=== PATIENT | female | born 1965 | race Caucasian/White ===

== ENCOUNTER 2017-10-17 10:12 | Emergency (ER) | payer BC, SELFPAY ==
[2017-10-17 11:13] VITALS: BP 143/78; PULSE 79; RESP 20; TEMP 37.3; O2SAT 96; BMI 28.1
[2017-10-17 11:30] LABS: UTC Influenza A Antigen Negative (Negative); UTC Influenza B Antigen Negative (Negative)
--- NOTE | 2017-10-17 11:33 | HMH.EDUTC ---
[facility] [place] Dis[place] Clinical Impression: Viral upper respiratory illness Disposition: Home, Self-Care Condition on Discharge: Good Instructions: DI for Viral Upper Respiratory Infection -- Adult Additional Instructions: Drink plenty of fluids FOllow up with family doctor if symptoms worsen Return if needed Over the counter Motrin or TYlenol as needed for fever or pain Prescriptions: Brompheniramine/Pseudoephed/Dm [Bromfed DM Cough Syrup 5mL] 10 ml PO Q4H PRN #200 syrup PRN Reason: Cough Fluticasone Propionate [Flonase 50mcg nasal spray 16gm] 2 spr NS DAILY #1 bottle Referrals: Marvin Obregon MD [Primary Care Provider] - Time of Disposition: 11:43 Medical Decision Making Vital Signs: 10/17/17 11:13 Temperature 99.1 F Temperature Source Skin Pulse Rate [Right] 79 Respiratory Rate 20 Blood Pressure [Right Arm] 143/78 Blood Pressure Mean [Right Arm] 99 Blood Pressure Source [Right Arm] Automatic Cuff Blood Pressure Position [Right Arm] Sitting 02 Sat by Pulse Oximetry 96 Oxygen Delivery Method Room Air - Lab Data Lab Results 10/17/17 11:28: Influenza Type A Ag Negative, Influenza Type B Ag Negative 10/17/17 11:28: Strep Scn Rapid [facility] Orders (Tests/Meds): ORDERS Category Date Time Status Strep Screen Confirmation Stat Micro 10/17/17 11:28 Received - Ugo Inquiry Pt receiving controlled substance: No Ugo was queried for this patient: No [facility] [place] HPI - General Stated complaint: POSS FLU,SORE THROAT Mode of Arrival: Ambulatory Source of Information: Patient Limitations: No Limitations Description of Symptoms (Recalled from Triage Doc. by RN): COUGH, CONGESTION, SORE THROAT HEENT Symptoms (Recalled from RN notes): Yes Resp Symptoms (Recalled from RN notes): No Skin Symptoms (Recalled from RN notes): No MS Symptoms (Recalled from RN notes): No Functional Status (Recalled from RN notes): NO - History of Present Illness Provider Complaint: State that her son was diagnosed on Sunday with the flu and now today she is running a fever and having flu like symptoms Onset (ago): day(s) (1) Radiation: non-radiation Severity: mild Severity scale (1-10): 1 Relieving factors: none Exacerbating factors: none Treatments prior to arrival: none - Related Data Previous Rx's Medication Instructions Recorded Brompheniramine/Pseudoephed/Dm 10 ml PO Q4H PRN #200 syrup 10/17/17 [Bromfed DM Cough Syrup 5mL] Fluticasone Propionate [Flonase 2 spr NS DAILY #1 bottle 10/17/17 50mcg nasal spray 16gm] Allergies Allergy/AdvReac Type Severity Reaction Status Date / Time No Known Allergies Allergy Unverified 10/02/17 14:31 - Worker's Comp Is this a Worker's Comp case?: No [facility] History - *Social History Alcohol Intake: never - Psychiatric History Expresses thoughts of harming self/others: None Suicide Plan Description: No Plan - Constitutional Reports chills, Reports fever(s) - ENT Reports nasal congestion - Respiratory Reports cough Physical Exam - General General appearance: alert, in no apparent distress - ENT ENT exam: Present: normal exam, normal oropharynx, mucous membranes moist, TM's normal bilaterally, normal external ear exam - Chest Chest inspection: Present: normal inspection, symmetric chest wall rise. Absent: tenderness - Respiratory Respiratory exam: Present: normal lung sounds bilaterally. Absent: respiratory distress - Cardiovascular Cardiovascular exam: Present: regular rate, normal rhythm. Absent: JVD - Abdominal Exam Abdominal exam: Present: soft, normal bowel sounds. Absent: distention, tenderness, guarding - Neurological Exam Neurological exam: Present: alert, oriented X3
--- NOTE | 2017-10-17 11:38 | ED_ITS ---
[facility] [place] Clinical Impression: Viral upper respiratory illness Disposition: Home, Self-Care Condition on Discharge: Good Instructions: DI for Viral Upper Respiratory Infection -- Adult Additional Instructions: Drink plenty of fluids FOllow up with family doctor if symptoms worsen Return if needed Over the counter Motrin or TYlenol as needed for fever or pain Prescriptions: Brompheniramine/Pseudoephed/Dm [Bromfed DM Cough Syrup 5mL] 10 ml PO Q4H PRN # 200 syrup PRN Reason: Cough Fluticasone Propionate [Flonase 50mcg nasal spray 16gm] 2 spr NS DAILY #1 bottle Referrals: Marvin Obregon MD [Primary Care Provider] - Time of Disposition: 11:43 Medical Decision Making Vital Signs: 10/17/17 11:13 Temperature 99.1 F Temperature Source Skin Pulse Rate [Right] 79 Respiratory Rate 20 Blood Pressure [Right Arm] 143/78 Blood Pressure Mean [Right Arm] 99 Blood Pressure Source [Right Arm] Automatic Cuff Blood Pressure Position [Right Arm] Sitting 02 Sat by Pulse Oximetry 96 Oxygen Delivery Method Room Air - Lab Data Lab Results 10/17/17 11:28: Influenza Type A Ag Negative, Influenza Type B Ag Negative 10/17/17 11:28: Strep Scn Rapid [facility] Orders (Tests/Meds): ORDERS Category Date Time Status Strep Screen Confirmation Stat Micro 10/17/17 11:28 Received - Ugo Inquiry Pt receiving controlled substance: No Ugo was queried for this patient: No [facility] [place] - General Stated complaint: POSS FLU,SORE THROAT Mode of Arrival: Ambulatory Source of Information: Patient Limitations: No Limitations Description of Symptoms (Recalled from Triage Doc. by RN): COUGH, CONGESTION, SORE THROAT HEENT Symptoms (Recalled from RN notes): Yes Resp Symptoms (Recalled from RN notes): No Skin Symptoms (Recalled from RN notes): No MS Symptoms (Recalled from RN notes): No Functional Status (Recalled from RN notes): NO - History of Present Illness Provider Complaint: State that her son was diagnosed on Sunday with the flu and now today she is running a fever and having flu like symptoms Onset (ago): day(s) (1) Radiation: non-radiation Severity: mild Severity scale (1-10): 1 Relieving factors: none Exacerbating factors: none Treatments prior to arrival: none - Related Data Previous Rx's Medication Instructions Recorded Brompheniramine/Pseudoephed/Dm 10 ml PO Q4H PRN #200 syrup 10/17/17 [Bromfed DM Cough Syrup 5mL] Fluticasone Propionate [Flonase 2 spr NS DAILY #1 bottle 10/17/17 50mcg nasal spray 16gm] Allergies Allergy/AdvReac Type Severity Reaction Status Date / Time No Known Allergies Allergy Unverified 10/02/17 14:31 - Worker's Comp Is this a Worker's Comp case?: No [facility] History - *Social History Alcohol Intake: never - Psychiatric History Expresses thoughts of harming self/others: None Suicide Plan Description: No Plan - Constitutional Reports chills, Reports fever(s) - ENT Reports nasal congestion - Respiratory Reports cough Physical Exam - General General appearance: alert, in no apparent distress - ENT ENT exam: Present: normal exam, normal oropharynx, mucous membranes moist, TM's normal bilaterally, normal external ear exam
== END 2017-10-17 11:45 | disposition home or self-care (01) ==
PROVIDERS: Emergency Provider Nurse Practitioner; Family Provider Family Medicine; PCP Family Medicine
DX: J06.9 Acute upper respiratory infection, unspecified (principal)
CPT/HCPCS: 87276; 87430; 87804; 87880; 99202

== ENCOUNTER → 2018-07-30 08:27 | Outpatient (CLI) | payer BC, SELFPAY ==
[2018-07-30 09:47] LABS: Blood Urea Nitrogen 15 mg/dL (7-18); Calcium 9.3 mg/dL (8.5-10.1); Carbon Dioxide 30 mmol/L (21.0-32.0); Chloride 105 mmol/L (98-107); Cholesterol 147 mg/dL (140-200); Creatinine,Serum 0.82 mg/dL (0.55-1.02); Estimated Glomerular Filt Rate 73 ml/min (>60); Free T4 (Free Thyroxine) 0.82 ng/dl (0.76-1.46); GFR (African American) 88 ML/MIN (>60); Glucose 106 mg/dL (74-106); HDL Cholesterol 49 mg/dL (29-89); LDL Cholesterol 76 mg/dL (0-130); Sodium 141 mmol/L (136-145); Triglycerides 108 mg/dL (30-200); VLDL Cholesterol 22 mg/dL (0-40)
== END ==
PROVIDERS: PCP Family Medicine; Visit Provider Family Medicine
DX: E03.9 Hypothyroidism, unspecified (principal)
CPT/HCPCS: 36415; 80048; 80061; 84439; 84443

== ENCOUNTER → 2019-09-01 15:05 | Outpatient (CLI) | payer BC, SELFPAY ==
--- NOTE | 2019-09-01 15:19 | MM_ITS ---
PROCEDURE: MM DIG SCREENING MAMM BI W/CAD CLINICAL INDICATION: SCREENING There is a history of breast cancer in patient's mother diagnosed after menopause. COMPARISON: SANJEEV SCRN MAMMO W/CAD BILAT from 08/15/2017 SANJEEV SCRN MAMMO W/CAD BILAT from 08/19/2018 SANJEEV SCRN MAMMO W/CAD BILAT from 08/19/2018 SANJEEV SCRN MAMMO W/CAD BILAT from 08/19/2018 SANJEEV SCRN MAMMO W/CAD BILAT from 08/19/2018 TECHNIQUE: Standard CC and MLO images were obtained. R2 CAD reviewed. FINDINGS: Scattered fibroglandular densities are seen in both breast and the findings of bilateral and symmetrical. There is no suspicious lesion and no suspicious microcalcifications. IMPRESSION: Fibrofatty parenchyma with no suspicious lesions seen BI-RAD Category: 1 Negative FOLLOW-UP: 1YR 1 Year Follow-up (A letter has been sent to the patient regarding results of the study.) Dictated by: Dr. Paras Nunez MD 09/04/2019 12:[address] Paras Nunez MD in [place] 09/04/2019 12:09
== END ==
PROVIDERS: PCP Family Medicine; Visit Provider Obstetrics & Gynecology Gynecology
DX: Z12.31 Encounter for screening mammogram for malignant neoplasm of breast (principal)
CPT/HCPCS: 77067

== ENCOUNTER → 2019-09-08 10:08 | Outpatient (CLI) | payer BC, SELFPAY ==
--- NOTE | 2019-09-08 10:12 | XR_ITS ---
PROCEDURE: XR KNEE LT 3V CLINICAL INDICATION: LT KNEE PAIN COMPARISON: No exams were available for comparison FINDINGS: No fracture or dislocation. No lytic or blastic change. There is normal mineralization. The joint spaces are well-preserved. No significant degenerative/arthritic changes. No erosive changes evident. Other findings:None. IMPRESSION: No acute findings. Dictated by: Meliton Dee MD 09/08/2019 13:22 Electronically signed by Meliton Dee MD in [place] 09/08/2019 13:22
== END ==
PROVIDERS: PCP Family Medicine; Visit Provider Family Medicine
DX: M25.562 Pain in left knee (principal)
CPT/HCPCS: 73562

== ENCOUNTER → 2019-10-06 11:16 | Outpatient (CLI) | payer BC, SELFPAY ==
--- NOTE | 2019-10-06 11:23 | MR_ITS ---
PROCEDURE: MR KNEE LT WO CON CLINICAL INDICATION: ACUTE PAIN OF LEFT KNEE COMPARISON: No exams were available for comparison TECHNIQUE: Routine multi-echo and multiplanar images. FINDINGS: Signal from the osseous marrow elements appear normal except for small subchondral rounded foci of increased T2 signal involving the posterior midline of the patella and the medial femoral condyle. There is loss of the articular cartilage at the posterior midline of the patella and involving the entire articular cortex at the medial femoral condyle with some associated cortical irregularity. There is a small joint effusion. Quadriceps and patellar tendons are intact. Patellar retinacular areas are normal. ACL and PCL are intact. MCL and the lateral capsular complex appear to be intact. The medial and lateral meniscal areas show some linear intrameniscal signal involving the entire medial meniscus without involvement of the articular surfaces. There is perhaps mild narrowing of the medial joint compartment. There is a small fluid collection between the gastrocnemius and semimembranosus tendons. This is approximately 1.8 centimeters in length. 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 Linear degenerative meniscal signal change involving the medial meniscus. No definite medial or lateral meniscal tear. Small reactive joint effusion and small popliteal cyst. Dictated by: Chiki Forte 10/06/2019 13:30 Electronically signed by Chiki Forte in [place] 10/06/2019 13:30
== END ==
PROVIDERS: PCP Family Medicine; Visit Provider Family Medicine
DX: M25.562 Pain in left knee (principal)
CPT/HCPCS: 73721

== ENCOUNTER → 2019-11-10 15:55 | Outpatient (CLI) | payer BC, SELFPAY ==
--- NOTE | 2019-11-10 16:04 | XR_ITS ---
PROCEDURE: XR CHEST 2V CLINICAL HISTORY: PRIOR SMOKER History of pneumonia COMPARISON: No exams were available for comparison FINDINGS: The cardiomediastinal silhouette and pulmonary vascularity are within normal limits. There is some patchy density in the left lung base the. Atelectasis/infiltrate or an area of fibrosis is a consideration. There is minimal blunting of the right CP angle. Mild hyperinflation consistent with COPD Mild wedging involves T8 age indeterminate. IMPRESSION: COPD with mild left basilar atelectasis infiltrate or fibrosis and minimal blunting of the right CP angle Age indeterminate mild wedging of T8 Dictated by: Meliton Dee MD 11/10/2019 17:23 Electronically signed by Meliton Dee MD in [place] 11/10/2019 17:23
--- NOTE | 2019-11-10 16:30 | ECG_ITS ---
APPROVED REPORT Exam: Resting ECG HR:66 bpm ECG Measurements Heart Rate 66 AXES CA 142 P 58 QRSd 90 QRS 64 QT 378 T 70 QTc 396 <Conclusion> Normal sinus rhythm Low voltage QRS Incomplete RBBB Abnormal ECG Electronically signed by : Delroy Ireland, 11/10/2019 19:15:43
[2019-11-10 16:36] LABS: Microscopic, Urine URINE MICROSCOPIC (MICROSCOPIC)
[2019-11-10 16:50] LABS: Appearance,Urine CLEAR (Clear); Bilirubin,Urine Negative (Negative); Blood, Urine Negative (Negative); Color,Urine YELLOW (Yellow); Glucose,Urine (UA) Negative (Negative); Ketones,Urine Negative (Negative); Leukocyte Esterase,Urine Negative (Negative); Nitrate,Urine Negative (Negative); Protein,Urine Negative (Negative); Urobilinogen,Urine 0.2 EU/dl (0.2)
[2019-11-10 16:53] LABS: Basophils # 0.1 K/mm3 (0-0.2); Basophils % 0.7 % (0.1-2.0); Eosinophils # 0.2 K/mm3 (0.0-0.4); Hematocrit 44.8 % (37.0-47.0); Hemoglobin 14.9 g/dL (12.2-16.2); Lymphocytes # 2.1 K/mm3 (0.7-4.5); Lymphocytes % 28.1 % (10-50); Mean Corpuscular HGB Conc 33.2 g/dL (31.8-35.4); Mean Corpuscular Hemoglobin 29.8 pg (27.0-31.2); Mean Corpuscular Volume 89.8 fl (81-99); Mean Platelet Volume 8.1 fl (7.4-10.4); Monocytes # 0.4 K/mm3 (0.1-1.0); Monocytes % 5.7 % (1.7-9.3); Neutrophils # 4.8 K/mm3 (1.8-7.8); Neutrophils % 62.5 % (37.0-80.0); Platelet Count 304 K/mm3 (142-424); Red Blood Count 4.99 M/mm3 (4.20-5.40); Red Cell Distribution Width 12.5 % (11.5-17.5); White Blood Count 7.6 K/mm3 (4.8-10.8)
[2019-11-10 17:19] LABS: Bacteria,Urine Trace /lpf; Squamous Epithelial Cell,Urine Occasional #/hpf (0-5); WBC,Urine Occasional #/hpf (0-3)
[2019-11-10 17:21] LABS: Alanine Aminotransferase 24 U/L (12-78); Albumin Level 4.1 gm/dL (3.4-5.0); Albumin/Globulin Ratio 1.4 (1.1-1.8); Alkaline Phosphatase 80 U/L (46-116); Aspartate Amino Transferase 16 U/L (15-37); Bilirubin,Total 0.4 mg/dL (0.2-1.0); Blood Urea Nitrogen 17 mg/dL (7-18); Calcium 9.2 mg/dL (8.5-10.1); Carbon Dioxide 29 mmol/L (21.0-32.0); Chloride 104 mmol/L (98-107); Creatinine,Serum 0.78 mg/dL (0.55-1.02); Estimated Glomerular Filt Rate 76 ml/min (>60); GFR (African American) 92 ML/MIN (>60); Glucose 90 mg/dL (74-106); Sodium 144 mmol/L (136-145); Total Protein,Serum 7.1 gm/dL (6.4-8.2)
[2019-11-10 18:25] LABS: Hemoglobin A1C 5.5 % (0.0-7.0)
== END ==
PROVIDERS: PCP Family Medicine; Visit Provider Family Medicine
DX: Z01.818 Encounter for other preprocedural examination (principal)
CPT/HCPCS: 36415; 71046; 80053; 81001; 83036; 85025; 93005

== ENCOUNTER → 2020-09-08 10:54 | Outpatient (CLI) | payer BC, SELFPAY ==
--- NOTE | 2020-09-08 10:56 | MM_ITS ---
PROCEDURE: MM DIG SCREENING MAMM BI W/CAD Referring Doctor: Balaji Mccarthy Patient Age:55Y CLINICAL INDICATION: SCREENING 55-year-old but no hormones but no new complaints but Mother with breast cancer age 51. COMPARISON: MG MM DIG SCREENING MAMM BI W/CAD from 09/01/2019 Other outside studies from 2018 and 2017 did not fully load appropriately into the PACS system due dysfunction with the [employer] PACS PACS image import interface. Only the CC view right breast from 2018; and MLO view from 2017 otherwise available TECHNIQUE: Standard CC and MLO images were obtained. R2 CAD reviewed. Bilateral digital breast tomosynthesis included. Additional left breast axillary CC and left MLO view performed CAD highlights no areas of concern. FINDINGS: Mild/ Moderate residual fibroglandular elements. Stable mild asymmetry. No new dominant or suspicious mass . No suspicious calcifications;. CAD computer review highlights no areas of concern either Left breast: Stable appearance with no new areas of concern Right breast: No new areas of significant concern. Small area superior right breast on MLO view appears to dissipate on the tomosynthesis view; and I believe corresponds with a stable area of density on CC view from IMPRESSION: No new areas of significant concern. Bilateral follow-up 1 year recommended and should be emphasized/encouraged Right breast-no significant new features; follow-up 1 year Small asymmetric area superior right breast dissipates on MLO tomosynthesis and appears stable on CC images.. Would recommend and encourage follow-up 1 year to further assure stability Left breast-stable follow-up 1 year BI-RAD Category: 2 Benign Finding(s) FOLLOW-UP: 1YR 1 Year Follow-up (A letter has been sent to the patient regarding results of the study.) Dictated by: Ross Cloud MD 09/16/2020 17:59 Ross Cloud MD in [place] 09/16/2020 17:59
== END ==
PROVIDERS: PCP Family Medicine; Visit Provider Obstetrics & Gynecology Gynecology
DX: Z12.31 Encounter for screening mammogram for malignant neoplasm of breast (principal)
CPT/HCPCS: 77063; 77067

== ENCOUNTER → 2021-02-01 16:24 | Outpatient (CLI) | payer BC, SELFPAY ==
--- NOTE | 2021-02-01 16:29 | XR_ITS ---
PROCEDURE: XR HIP RT 2-3V W/PELVIS CLINICAL INDICATION: HIP PAIN RT COMPARISON: No exams were available for comparison FINDINGS: There are mild osteoarthritic changes of the right hip. No acute fracture or dislocation. No lytic or blastic change. IMPRESSION: Mild osteoarthritis Dictated by: Meliton Dee MD 02/01/2021 17:12 Meliton Dee MD in [place] 02/01/2021 17:12
== END ==
PROVIDERS: PCP Family Medicine; Visit Provider Nurse Practitioner Family
DX: M25.551 Pain in right hip (principal)
CPT/HCPCS: 73502

== ENCOUNTER → 2021-08-27 09:59 | Outpatient (CLI) | payer BC, SELFPAY | PROVIDERS: PCP Family Medicine; Visit Provider Family Medicine | DX: U07.1 COVID-19 (principal); Z23 Encounter for immunization | CPT/HCPCS: 96365 ==

== ENCOUNTER → 2021-09-13 08:18 | Outpatient (CLI) | payer BC, SELFPAY ==
--- NOTE | 2021-09-13 08:20 | MM_ITS ---
PROCEDURE INFORMATION: Exam: MG Bilateral Screening 3D Mammography Exam date and time: 09/13/2021 8:20 AM Age: 56 years old Clinical indication: Encounter for screening mammogram for malignant neoplasm of breast TECHNIQUE: Imaging protocol: Bilateral screening tomosynthesis and 2D mammography including computer-aided detection (CAD) when performed. COMPARISON: 1. MG MM DIG SCREENING MAMM BI W/CAD 09/08/2020 10:58 AM 2. MG MM DIG SCREENING MAMM BI W/CAD 09/01/2019 3:22 PM FINDINGS: MAMMOGRAPHY: Breast composition: The breast tissue is composed of scattered areas of fibroglandular density. Mass: None. Architectural distortion: None. Calcifications: No suspicious calcifications. Asymmetric density: None. Skin thickening: None. Axillary adenopathy: None. IMPRESSION: No mammographic evidence of malignancy. Annual screening is recommended unless otherwise clinically indicated. ASSESSMENT: BI-RADS Category 1: Negative
--- NOTE | 2021-09-13 08:20 | XR_ITS ---
PROCEDURE: XR DEXA AXIAL SKELETON CLINICAL HISTORY: SCREENING FOR OSTEOPOROSIS COMPARISON: No exams were available for comparison FINDINGS: The right hip BMD is 0.671 with a T-score of -1.6. The left hip BMD is 0.744 with a T-score of -1.6. The lumbar spine BMD is 0.950 with a T-score of -0.9. IMPRESSION: This patient is considered osteopenic according to the World Health Organization criteria. Bone density is between 10 and 25 percent below young normal. Fracture risk is moderate. Treatment is advised. Based on these results a follow-up exam is recommended in 2 year. Dictated by: Meliton Dee MD 09/13/2021 11:03 Meltion Dee MD in [place] 09/13/2021 11:03
== END ==
PROVIDERS: PCP Family Medicine; Visit Provider Obstetrics & Gynecology Gynecology
DX: Z12.31 Encounter for screening mammogram for malignant neoplasm of breast (principal); Z13.820 Encounter for screening for osteoporosis; M85.89 Other specified disorders of bone density and structure, multiple sites
CPT/HCPCS: 77063; 77067; 77080

== ENCOUNTER 2021-12-18 09:19 | Emergency (ER) | payer BC, SELFPAY ==
[2021-12-18 09:20] VITALS: BP 141/89; PULSE 82; RESP 17; TEMP 37.2; O2SAT 97; BMI 26.9
--- NOTE | 2021-12-18 09:41 | HMH.EDUTC ---
[facility] [place]ression: Maxillary sinusitis, acute Qualifiers: Recurrence: non-recurrent Qualified Code(s): J01.00 - Acute maxillary sinusitis, unspecified Disposition: Home, Self-Care Condition on Discharge: Good Instructions: DI for Sinusitis Additional Instructions: Start antibiotic patient to take as ordered for a full length of time even if you feel better. Sinus infections do not get better overnight. It may take 2-3 days to notice much improvement so be sure to use conservative measures as discussed for symptoms. Flonase 1 spray each nostril daily to help with nasal congestion, sinus and ear pressure/information Increase fluids Humidifier/vaporizer as needed Tylenol and ibuprofen as needed for fever or pain. If symptoms do not improve or get worse return or be seen in the ER Follow-up with primary care this week Prescriptions: Fluticasone Propionate [Flonase 50mcg nasal spray 16gm] 1 spr NS DAILY 14 Days #9.9 ml Transmission Status: Pending to [id number] Azithromycin [Zithromax 250mg tab] 250 mg PO DIRECTED #6 tab [id number] Referrals: Marvin Obregon MD [Primary Care Provider] - Time of Disposition: 09:49 Medical Decision Making - Ugo Inquiry Pt receiving controlled substance: No [facility] [place] - General Chief complaint: Ur[facility] Stated complaint: cough Time Seen by Provider: 12/18/21 09:41 Mode of Arrival: Ambulatory Source of Information: Patient Limitations: No Limitations - History of Present Illness Provider Complaint: 56 yr old female presents for cough, dark brown nasal drainage, sinus pressure and headache - Related Data Home Medications Medication Instructions Recorded Confirmed Levothyroxine Sodium [Synthroid 75 mcg PO DAILY 12/18/21 12/18/21 75mcg (0.075mg) tablet] Previous Rx's Medication Instructions Recorded Azithromycin [Zithromax 250mg 250 mg PO DIRECTED #6 tab 12/18/21 tab] Fluticasone Propionate [Flonase 1 spr NS DAILY 14 Days #9.9 ml 12/18/21 50mcg nasal spray 16gm] Allergies Allergy/AdvReac Type Severity Reaction Status Date / Time No Known Allergies Allergy Unverified 10/02/17 14:31 [facility] History - Hepatitis A Screen Attestation statement:: This patient has been screened for Hepatitis A risk factors. I have reviewed the patient's past medical history: Yes Laterality Cases: Bilateral: Arthroscopy Shoulder - Social History Smoking Status: Never smoker Alcohol Intake: never Occupational Status: employed Household Members: spouse ROS Obtained: Yes Systems reviewed as appropriate & no additional complaints - Constitutional Constitutional: Reports system reviewed and no additional complaints, except as docu, Denies body ache, Denies fatigue - Eyes Eyes: Reports system reviewed and no additional complaints, except as docu, Denies blurry vision - ENT Ears, Nose, Mouth, and Throat: Reports system reviewed and no additional complaints, except as docu, Denies dizziness, Reports headache(s), Reports nasal congestion, Reports nasal discharge, Reports post nasal drip, Reports sinus pain, Reports sinus pressure - Cardiovascular Cardiovascular: Reports system reviewed and no additional complaints, except as docu, Denies chest pain - Respiratory Respiratory: Reports system reviewed and no additional complaints, except as docu, Reports cough - Gastrointestinal Gastrointestingal: Reports: system reviewed and no additional complaints, except as docu. Denies: abdominal pain - Musculoskeletal Musculoskeletal: Reports system reviewed and no additional complaints, except as docu, Denies joint pain - Integumentary/Breasts Skin/Breast: Reports system reviewed and no additional complaints, except as docu, Denies rash - Neurologic Neurologic: Reports system reviewed and no additional complaints, except as docu, Denies dizziness - Endocrine Endocrin
[2021-12-18 09:51] VITALS: BP 141/89; PULSE 82; RESP 17; TEMP 37.2; O2SAT 97
== END 2021-12-18 09:55 | disposition home or self-care (01) ==
PROVIDERS: Emergency Provider Nurse Practitioner Family; PCP Family Medicine
DX: J01.00 Acute maxillary sinusitis, unspecified (principal); R50.9 Fever, unspecified; R51.9 Headache, unspecified; Z79.51 Long term (current) use of inhaled steroids; Z79.899 Other long term (current) drug therapy
CPT/HCPCS: 99213; G0463

== ENCOUNTER → 2022-04-28 09:32 | Outpatient (CLI) | payer BC, SELFPAY ==
--- NOTE | 2022-04-28 09:39 | XR_ITS ---
FINAL REPORT CLINICAL HISTORY: RT HIP PAIN COMPARISON: February 01, 2021 FINDINGS: 2 views of the right hip and an AP pelvis were obtained. There is no acute fracture or dislocation. There is mild sclerosis of the right SI joint. The joint spaces are intact. There are no soft tissue abnormalities. IMPRESSION: Mild sclerosis of the right SI joint. Reviewed, Interpreted and Dictated by Royer Suero MD Transcribed by Bhaskar Glaser Authenticated and [facility]
== END ==
PROVIDERS: PCP Family Medicine; Visit Provider Nurse Practitioner Family
DX: M25.551 Pain in right hip (principal)
CPT/HCPCS: 73502

== ENCOUNTER 2022-06-08 16:02 | Emergency (ER) | payer BC, SELFPAY ==
[2022-06-08 17:15] VITALS: BP 148/88; PULSE 87; RESP 18; TEMP 36.6; O2SAT 98; BMI 29.3
--- NOTE | 2022-06-08 17:54 | EXP.UTC ---
Discharge Plan Disposition Patient Disposition: Home, Self-Care Condition: Good Prescriptions Prescriptions: New prednisone 20 mg tablet 20 mg PO BID 5 Days Qty: 10 0RF No Action levothyroxine 75 MCG tablet 75 mcg PO DAILY azithromycin 250 MG tablet 250 mg PO DIRECTED Qty: 6 0RF Rx Instructions: Take two (2) tablets on day #1, then one (1) tablet day #2 thru #5 fluticasone propionate 120 SPR/BOT bottle 1 spr NS DAILY 14 Days Qty: 9.9 0RF Referrals Referrals: Marvin Obregon MD [Primary Care Provider] - Enter time for follow up Activity Restrictions/Add. Instructions Additional Instructions/Restrictions: Over the counter Benadryl as directed on package Start Oral steriods tomorrow Straight to ER if any trouble swallowing or feelign of throat swelling Return if needed Follow up with your Family Doctor Clinical Impressions Clinical Impression: Acute allergic reaction Instructions Patient Instructions: DI for Eye Allergic Reaction, DI for Adverse Drug Reaction -- Allergic, Prednisone Discharge ED Provider: Nori Byers [facility] General Stated complaint: possible reaction Mode of Arrival: Ambulatory Source of Information: Patient Limitations: No Limitations Time Seen by Provider: 06/08/22 17:45 Description of Symptoms (Recalled from Triage Doc. by RN): PATIENT C/O SWELLING TO LIPS AND CHEEKS SINCE LAST NIGHT HEENT Symptoms (Recalled from RN notes): Yes Resp Symptoms (Recalled from RN notes): No Skin Symptoms (Recalled from RN notes): No MS Symptoms (Recalled from RN notes): No Functional Status (Recalled from RN notes): WNL History of Present Illness Provider Complaint: Patient states that sometimes around this time of year there is something blooming or something outside that makes her have facial swelling State that she is having swelling in her cheeks and lip area but denies trouble breathing or swallowing States that it has been going on for a couple of days and she has been taking benadryl and it has helped but today she decided to come in to get a shot to help it Related Data Home Medications Medication Instructions Recorded Confirmed levothyroxine 75 mcg tablet 75 mcg PO DAILY THYROID 12/18/21 12/18/21 Previous Rx's Medication Instructions Recorded azithromycin 250 mg tablet 250 mg PO DIRECTED #6 tabs 12/18/21 fluticasone propionate 50 1 spr NS DAILY 14 days #9.9 mL 12/18/21 mcg/actuation nasal spray,suspension prednisone 20 mg tablet 20 mg PO BID 5 days #10 tabs 06/08/22 Allergies Allergy/AdvReac Type Severity Reaction Status Date / Time No Known Allergies Allergy Verified 12/18/21 09:42 Worker's Comp Is this a Worker's Comp case?: No PFSH PFSH Medical History (Updated 06/08/22 @ 18:03 by Nori Byers APRN) Hypothyroid Surgical History (Updated 06/08/22 @ 17:26 by Aida Klein RN) History of tubal ligation Social History (Updated 06/08/22 @ 17:25 by Aida Klein RN) Smoking Status: Never smoker alcohol intake: never current occupational status: employed Travel in the last 8 weeks: None household members: spouse ROS Obtained: Yes All systems reviewed & no additional complaints except as documented and Yes Systems reviewed as appropriate & no additional complaints except as documented Constitutional Constitutional: Reports system reviewed and no additional complaints, except as documented Eyes Eyes: Reports system reviewed and no additional complaints, except as documented and Reports as per HPI ENT Ears, Nose, Mouth, and Throat: Reports system reviewed and no additional complaints, except as documented, Reports as per HPI, Reports lip swelling, Denies odynophagia, Denies throat swelling and Denies tongue swelling Comments: Swelling in her lips and cheek area Cardiovascular Cardiovascular: Reports system reviewed and no additional complaints, except as documented and Reports as per HPI Respirator
[2022-06-08 18:22] VITALS: BP 148/88; PULSE 87; RESP 18; TEMP 36.6; O2SAT 98
== END 2022-06-08 18:25 | disposition home or self-care (01) ==
PROVIDERS: Emergency Provider Nurse Practitioner; PCP Family Medicine
DX: T78.40XA Allergy, unspecified, initial encounter (principal); R22.0 Localized swelling, mass and lump, head
CPT/HCPCS: 96372; 99212; G0463

== ENCOUNTER → 2022-06-21 09:49 | Outpatient (POV) | payer BC, SELFPAY ==
--- NOTE | 2022-06-21 10:14 | EXP.PAIN.OV ---
HPI Data of Consult Patient: new to practice Consult date: 06/21/22 Requesting Physician: Mercy Kamara APRN Primary Care Provider: Marvin Obregon MD Consult Narrative Reason for consult: Right-sided low back pain History of present illness: Ms. Diallo is a 56 year old female presents as a new patient. She is a referral from Marvin Obregon's office. Today she rates her pain a 4 out of 10 and states it is primarily on her right side of her low back that radiates into her right hip and into her groin. Patient describes this as a burning sensation that is worse with increased activity. Patient states this has been going on for years and it has slowly increased. Patient denies any significant trauma or injury to the site. She states about 3 to 4 weeks ago it worsened when she was trying to get into her vehicle and actually caused difficulty walking. She did go see her primary care doctor who did a physical therapy referral. Patient states that this has seemed to improve her symptoms as well as ice application. Patient does manage this pain with Tylenol or ibuprofen [id number] however it does not seem to give significant relief. Patient is very active with golf and pickleball and is interested in any type of additional improvement of her symptoms we can give. Patient is not on any scheduled medications. Her Ugo is [id number]. It has been reviewed and appropriate. CC: Mercy Kamara APRN [facility] Medical History (Updated 06/21/22 @ 10:19 by Mercy Kamara APRN) Hypothyroid Surgical History (Updated 06/08/22 @ 17:26 by Aida Klein RN) History of tubal ligation Social History (Updated 06/08/22 @ 17:25 by Aida Klein RN) Smoking Status: Never smoker alcohol intake: never current occupational status: employed Travel in the last 8 weeks: None household members: spouse Review of Systems Review of Systems Review of systems:: pertinent systems reviewed and negative unless documented below Review of systems (narrative): Review of Systems: General: No recent weight changes, no fever, no sleep disturbances Respiratory: No cough, no shortness of air, no recurring pulmonary infections Cardiovascular/peripheral vascular: No chest pain, no palpitations, no edema, no shortness of breath Gastrointestinal: No new onset incontinence, normal bowel movements reported Genitourinary: No new onset incontinence Musculoskeletal: Low back pain, right hip pain, right groin pain Psychiatric: [Normal mood/affect] Neurological: [Denies weakness in extremities], [denies balance issues] Meds Home Medications and Allergies Home Medications Medication Instructions Recorded Confirmed Type azithromycin 250 mg tablet 250 mg PO DIRECTED #6 tabs 12/18/21 Rx fluticasone propionate 50 1 spr NS DAILY 14 days #9.9 mL 12/18/21 Rx mcg/actuation nasal spray,suspension levothyroxine 75 mcg tablet 75 mcg PO DAILY THYROID 12/18/21 12/18/21 History prednisone 20 mg tablet 20 mg PO BID 5 days #10 tabs 06/08/22 Rx New Prescriptions to Start Prescriptions: Allergies Allergy/AdvReac Type Severity Reaction Status Date / Time No Known Allergies Allergy Verified 12/18/21 09:42 Objective Narrative: Physical Exam: General: Alert and oriented x3, no acute distress, pleasant and cooperative Lungs: Respirations even and unlabored, symmetrical chest expansion Eyes: PERRL Musculoskeletal: Flexion and extension of lumbar [spine] somewhat guarded secondary to pain, [antalgic gait noted]. Extreme point tenderness along her right SI and positive right Mitchel's, Kim's, Gaenslen's, compression and distraction exam Neurological: Speech clear, no gross sensory deficit Opioid Risk Tool Opioid Risk Tool-Female Family hx alcohol abuse: No Family hx illegal drugs: No Family hx rx drug abuse: No Personal hx alcohol abuse: No Personal hx illegal drugs: No Personal hx rx drug abuse: No Age: 45+ Hx of sexua
[2022-06-21 10:18] VITALS: BP 150/89; PULSE 81; RESP 18; TEMP 36.6; O2SAT 97; BMI 26.6
== END ==
PROVIDERS: PCP Family Medicine; Visit Provider Nurse Practitioner Family
DX: M46.1 Sacroiliitis, not elsewhere classified (principal); M54.50 Low back pain, unspecified; M25.551 Pain in right hip; R10.31 Right lower quadrant pain
CPT/HCPCS: 99202; G0463

== ENCOUNTER → 2022-07-06 08:26 | Outpatient (POV) | payer BC, SELFPAY ==
[2022-07-06 08:33] VITALS: BP 142/87; PULSE 71; RESP 18; TEMP 36.6; O2SAT 97; BMI 26.6
--- NOTE | 2022-07-06 08:37 | EXP.PAIN.SOA ---
[facility] Pain Management SOAP Note Subjective:: Patient is a pleasant 56-year-old female who presents today for follow-up of injection denial. We are currently treating the patient for right sacroiliitis, low back pain, right hip pain. Today the patient rates her pain a 5 out of 10. She states the pain is primarily on her right side of her low back and radiates into her right hip and her groin. Patient states this is a burning sensation that is worse with increased activity. Patient states even putting on her right shoe is difficult due to the pain. Patient denies any new trauma but states this has been going on for years and it is just slowly increased. Patient has tried Tylenol and ibuprofen with minimal improvement of her symptoms. She also uses ice application and currently sees physical therapy with some improvement of her symptoms. Patient continues to try to do daily exercise and stretching and tries to stay active with activities such as golf and pickleball. She is not on any scheduled medications. Her Ugo is [id number]. It has been reviewed and appropriate. Review of Systems: General: No recent weight changes, no fever, no sleep disturbances Respiratory: No cough, no shortness of air, no recurring pulmonary infections Cardiovascular/peripheral vascular: No chest pain, no palpitations, no edema, no shortness of breath Gastrointestinal: No new onset incontinence, normal bowel movements reported Genitourinary: No new onset incontinence Musculoskeletal: Low back pain, right hip pain, right leg pain Psychiatric: [Normal mood/affect] Neurological: [Denies weakness in extremities], [denies balance issues] Objective:: Physical Exam: General: Alert and oriented x3, no acute distress, pleasant and cooperative Lungs: Respirations even and unlabored, symmetrical chest expansion Eyes: PERRL Musculoskeletal: Flexion and extension of lumbar [spine] somewhat guarded secondary to pain, [antalgic gait noted]. Extreme point tenderness along right SI and positive right Mitchel's, Kim's, Gaenslen's, compression and distraction exam Neurological: Speech clear, no gross sensory deficit Assessment:: Right sacroiliitis, low back pain, right hip pain Plan:: Patient continues to have worsening pain in her low back on the right side that radiates into her right hip and right groin. Patient had an extreme point tenderness along her right SI and positive right Mitchel's, Kim's, Gaenslen's, compression and distraction exam during today's exam. patient continues to do ice application, [id number] Tylenol and ibuprofen and physical therapy with minimal improvement of her symptoms as also stated in our previous office note. Patient has been to physical therapy for several months with multiple sessions and still is experiencing worsening pain. I have discussed with the patient regarding submitting again for a right SI injection. Risk and benefits were discussed with the patient. She would like to proceed forward with this injection. We will submit for right SI injection and contact the patient when we have approval. Patient has been instructed to contact the clinic with any concerns before the next appointment. Dr. Castellon has reviewed this note and agrees with this plan of care. This note was dictated using voice recognition software and make contain errors or omissions. PFSH PFSH Medical History Hypothyroid Surgical History H/O lateral meniscus repair of left knee History of tubal ligation Hx of shoulder surgery Social History (Updated 06/08/22 @ 17:25 by Aida Klein RN) Smoking Status: Never smoker alcohol intake: never current occupational status: retired Travel in the last 8 weeks: None household members: spouse
== END ==
PROVIDERS: PCP Family Medicine; Visit Provider Nurse Practitioner Family
DX: M46.1 Sacroiliitis, not elsewhere classified (principal); M54.50 Low back pain, unspecified; M25.551 Pain in right hip
CPT/HCPCS: 99212; G0463

== ENCOUNTER 2022-07-11 07:41 | Day surgery (SDC) | payer BC, SELFPAY ==
[2022-07-11 08:04] VITALS: BP 153/82; PULSE 67; RESP 20; TEMP 36.5; O2SAT 99; BMI 26.3
[2022-07-11 08:23] VITALS: BP 172/88; PULSE 78; RESP 18; O2SAT 98
[2022-07-11 08:24] VITALS: BP 152/91; PULSE 68; RESP 18; O2SAT 98
[2022-07-11 08:30] VITALS: BP 147/90; PULSE 66; RESP 18; O2SAT 98
--- NOTE | 2022-07-11 09:36 | EXP.PAIN.PRO ---
Procedure Date: 07/11/22 Time: 08:15 Anesthesiologist:: Camden Hylton CRNA Complications:: None Pre-procedure Diagnosis:: Right sacroiliitis Post-procedure Diagnosis:: Same Indications for Procedure:: Very pleasant 56-year-old female that comes our clinic for an initial right SI joint injection. Patient describes the right SI joint pain as constant, dull, aching. She rates the pain 7/10. She has extreme point tenderness over the right SI joint upon examination. Procedure Details:: Procedure: Right sacroliliac joint injection under fluoroscopy Informed consent was obtained and the risk and benefits of the procedure were explained to the patient.~ The patient was taken to the procedure room and noninvasive monitors were placed including noninvasive blood pressure cuff and pulse oximeter.~ The patient was placed prone on the procedure table.~ The~ right hip was cleansed using Betadine as a cleansing solution.~ C-arm fluorosocpy was used to view the right SI joint.~ The skin and subcutaneous tissues were anesthetized using Lidocaine 1.5% and a 25-gauge needle.~ After this, a 22-gauge spinal needle was inserted under fluoroscopic guidance into the inferior aspect of the right SI joint.~ Omnipaque dye was injected and a good spread was seen throughout the joint.~ After this, approximately 5 mL of bupivacaine 0.25% and Depo-Medrol 40 mg was incrementally injected into the sacroiliac joint.~ The patient tolerated the procedure well with no complications.~ The patient was observed in the Pain Clinic, then discharged home neurologically intact.~ Plan and Disposition:: Patient was discharged essentially without pain in the right posterior hip area.
== END 2022-07-11 08:30 | disposition home or self-care (01) ==
LOC: SC.PAINP 07:42
PROVIDERS: PCP Family Medicine; Visit Provider Nurse Anesthetist, Certified Registered
DX: M46.1 Sacroiliitis, not elsewhere classified (principal)
CPT/HCPCS: 27096; G0260; J1040

== ENCOUNTER → 2022-07-27 15:11 | Day surgery (SDC) | payer BC, SELFPAY ==
[2022-07-27 15:21] VITALS: BP 128/80; PULSE 88; RESP 18; TEMP 36.6; O2SAT 100; BMI 26.6
--- NOTE | 2022-07-27 17:00 | EXP.PAIN.SOA ---
[facility] Pain Management SOAP Note Subjective:: Patient is a pleasant 48-year-old female who presents today for follow-up after a right SI injection on 07/11/2022. Patient is coming treated for right-sided sacroiliitis and right hip pain. After her injection, patient has significant relief of 80 to 90% and rates her pain today as 2 out of 10. Denies any issues after the injection. She has been able to increase her activity since the injection. She states that the pain around her right upper buttock that is going down her right lower extremity has improved. However, she still having some discomfort around her right groin area. Patient does like to stay active. She plays golf and pickleball multiple days a week. She is having a lot of pain during right hip internal rotation. She has been on several weeks of physical therapy in the last couple months. Hip x-ray shows mild arthritis in her right hip. She has never had any right hip intra-articular injections. She takes OTC medications for pain. She is not on any scheduled medications. [facility] [id number]. Review of Systems: General: No recent weight changes, no fever, no sleep disturbances Respiratory: No cough, no shortness of air, no recurring pulmonary infections Cardiovascular/peripheral vascular: No chest pain, no palpitations, no edema, no shortness of breath Gastrointestinal: No new onset incontinence, normal bowel movements reported Genitourinary: No new onset incontinence Musculoskeletal: Right hip pain Psychiatric: [Normal mood/affect] Neurological: [Denies weakness in extremities], [denies balance issues] Objective:: Physical Exam: General: Alert and oriented x3, no acute distress, pleasant and cooperative Lungs: Respirations even and unlabored, symmetrical chest expansion Eyes: PERRL Musculoskeletal: Limited range of motion of the right hip secondary to pain. Pain is worse with right hip internal rotation Neurological: Speech clear, no gross sensory deficit Assessment:: Right hip pain, right-sided sacroiliitis, osteoarthritis of the right hip Plan:: Patient continues to have significant relief after her right SI injection. She still complaining of some discomfort in her right groin. We will schedule the patient for a right intra-articular hip injection. Patient has been instructed to contact the clinic with any concerns before the next appointment. Dr. Castellon has reviewed this note and agrees with this plan of care. This note was dictated using voice recognition software and make contain errors or omissions. PFS PFS Medical History Hypothyroid Surgical History H/O lateral meniscus repair of left knee History of tubal ligation Hx of shoulder surgery Family History (Updated 07/11/22 @ 08:06 by Erika Ring RN) Other No significant family history Social History (Updated 06/08/22 @ 17:25 by Aida Klein RN) Smoking Status: Never smoker alcohol intake: never current occupational status: retired Travel in the last 8 weeks: None household members: spouse
== END ==
PROVIDERS: PCP Family Medicine; Visit Provider Student in an Organized Health Care Education/Training Program
DX: M46.1 Sacroiliitis, not elsewhere classified (principal); M16.11 Unilateral primary osteoarthritis, right hip
CPT/HCPCS: 99212; G0463

== ENCOUNTER 2022-08-11 12:32 | Day surgery (SDC) | payer BC, SELFPAY ==
[2022-08-11 13:17] VITALS: BP 156/77; BP 157/85; PULSE 60; PULSE 67; RESP 18; TEMP 36.6; O2SAT 97; O2SAT 98; O2SAT 99; BMI 26.6
[2022-08-11 13:31] VITALS: BP 138/82; PULSE 20; PULSE 64
--- NOTE | 2022-08-11 15:24 | EXP.PAIN.PRO ---
Procedure Date: 08/11/22 Time: 15:24 Anesthesiologist:: Kostas Castellon MD Complications:: None Pre-procedure Diagnosis:: Right hip degenerative osteoarthritis Post-procedure Diagnosis:: Same Indications for Procedure:: This patient is a pleasant 57-year-old white female who is status post right SI joint injection. She is doing very well with her right SI joint pain. She does have some pain into her right hip which radiates into the groin area especially when walking going up steps. We will do a right hip intra-articular injection today to see if this helps with her pain symptoms. Procedure Details:: Right hip intra-articular injection under fluoroscopy Informed consent was obtained risk and benefits of the procedure were explained to the patient. Patient was taken the procedure room. The right hip was prepped using ChloraPrep. A 22-gauge spinal needle was inserted into the right hip joint. Needle placement was confirmed with dye. After this we injected 5 mL bupivacaine 0.25% and Depo-Medrol 40 mg into the right hip joint. Patient tolerated procedure well with no complications. Plan and Disposition:: We will follow-up with this patient in 2 weeks. Will reevaluate symptoms at that time.
--- NOTE | 2022-08-11 15:27 | EXP.PAIN.PRO ---
Procedure Date: 08/11/22 Time: 15:27 Anesthesiologist:: Kostas Castellon MD Complications:: None Pre-procedure Diagnosis:: Degenerative disc disease of lumbar spine with lumbar radiculopathy symptoms
== END 2022-08-11 13:32 | disposition home or self-care (01) ==
LOC: SC.PAINP 12:32
PROVIDERS: PCP Family Medicine; Visit Provider Anesthesiology
DX: M16.11 Unilateral primary osteoarthritis, right hip (principal); M46.1 Sacroiliitis, not elsewhere classified
CPT/HCPCS: 20610; 77002; J1040; Q9966

== ENCOUNTER → 2022-08-28 08:37 | Outpatient (POV) | payer BC, SELFPAY ==
--- NOTE | 2022-08-28 08:50 | A.OFFVIS_ITS ---
[facility] Pain Management SOAP Note Subjective:: Patient is a pleasant 57-year-old female who presents today for follow-up of right intra-articular hip injection on 08/11/2022. We are currently treating the patient for sacroiliitis, right hip pain. Today the patient states that she has had at least 75% improvement following this injection and feels like it is still continuing to help. Patient states she has been able to increase her activity following this injection with much better improved functionality. Today she rates her pain a 1 out of 10. Patient denies any new trauma or injury. Patient denies any change location or type of pain she experiences. Patient does continue to have some radiating pain into her right groin however she states this is much more manageable following the last injection. Patient is very active and frequently plays golf or pickleball multiple days a week. Patient has recently been to physical therapy within the last couple of months and has had some improvement. Patient does use [id number] medications such as Tylenol and ibuprofen as needed for her symptoms. Patient is not on any scheduled medications. Her Ugo is [id number]. It is been reviewed and appropriate. Review of Systems: General: No recent weight changes, no fever, no sleep disturbances Respiratory: No cough, no shortness of air, no recurring pulmonary infections Cardiovascular/peripheral vascular: No chest pain, no palpitations, no edema, no shortness of breath Gastrointestinal: No new onset incontinence, normal bowel movements reported Genitourinary: No new onset incontinence Musculoskeletal: Right hip pain Psychiatric: [Normal mood/affect] Neurological: [Denies weakness in extremities], [denies balance issues] Objective:: Physical Exam: General: Alert and oriented x3, no acute distress, pleasant and cooperative Lungs: Respirations even and unlabored, symmetrical chest expansion Eyes: PERRL Musculoskeletal: Flexion and extension of lumbar [spine] somewhat guarded secondary to pain, [antalgic gait noted] Neurological: Speech clear, no gross sensory deficit Assessment:: Sacroiliitis, right hip pain Plan:: Patient has had significant improvement following her right hip intra-articular injection. At this time the patient does not require any additional injective therapy. We will follow-up with the patient in 1 month. Patient will return to clinic in 1 month for reevaluation of symptoms and follow-up. Patient has been instructed to contact the clinic with any concerns before the next appointment. Dr. Castellon has reviewed this note and agrees with this plan of care. This note was dictated using voice recognition software and make contain errors or omissions. PFSH PFSH Medical History Hypothyroid Surgical History H/O lateral meniscus repair of left knee History of tubal ligation Hx of shoulder surgery Family History Other No significant family history Social History (Updated 08/11/22 @ 13:22 by Nicki Lowery RN) Smoking Status: Never smoker alcohol intake: never current occupational status: retired Travel in the last 8 weeks: None household members: spouse
[2022-08-28 08:55] VITALS: BP 143/80; PULSE 70; RESP 18; O2SAT 98; BMI 26.7
== END ==
PROVIDERS: PCP Family Medicine; Visit Provider Nurse Practitioner Family
DX: M46.1 Sacroiliitis, not elsewhere classified (principal)
CPT/HCPCS: 99212; G0463

== ENCOUNTER → 2022-09-25 08:22 | Outpatient (POV) | payer BC, SELFPAY ==
[2022-09-25 08:37] VITALS: BP 152/79; PULSE 70; RESP 18; O2SAT 97; BMI 27.3
--- NOTE | 2022-09-25 08:40 | EXP.PAIN.SOA ---
[facility] Pain Management SOAP Note Subjective:: Patient is a pleasant 57-year-old female who presents today for follow-up. We are currently treating the patient for sacroiliitis, right hip pain. Today the patient rates her pain a 2 out of 10. Patient states that she is continue to have significant relief from her last right intra-articular hip injection that was on 08/11/2022. Patient states that she has been able to resume her regular activities such as golf and pickleball. Patient denies any new trauma or injury. Patient denies any change location or type of pain she experiences. Patient does use [id number] medications such as Tylenol and ibuprofen as needed to help with her symptoms. Patient is not on any scheduled medications. Her Ugo is [id number]. It is been reviewed and appropriate. Review of Systems: General: No recent weight changes, no fever, no sleep disturbances Respiratory: No cough, no shortness of air, no recurring pulmonary infections Cardiovascular/peripheral vascular: No chest pain, no palpitations, no edema, no shortness of breath Gastrointestinal: No new onset incontinence, normal bowel movements reported Genitourinary: No new onset incontinence Musculoskeletal: Right hip pain Psychiatric: [Normal mood/affect] Neurological: [Denies weakness in extremities], [denies balance issues] Objective:: Physical Exam: General: Alert and oriented x3, no acute distress, pleasant and cooperative Lungs: Respirations even and unlabored, symmetrical chest expansion Eyes: PERRL Musculoskeletal: Flexion and extension of lumbar [spine] somewhat guarded secondary to pain, [antalgic gait noted] Neurological: Speech clear, no gross sensory deficit Assessment:: Sacroiliitis, right hip pain Plan:: Patient continues to have significant pain relief following her last intra-articular hip injection. At this time the patient does not require any additional injective therapy. We will follow-up with the patient in 3 months for reevaluation of symptoms and follow-up. Patient has been instructed to contact the clinic with any concerns before the next appointment. Dr. Castellon has reviewed this note and agrees with this plan of care. This note was dictated using voice recognition software and make contain errors or omissions. [facility] Disclaimer: The information contained in this section may have been updated after the patient was seen, as this information can be updated by other users. Medical History Hypothyroid Surgical History H/O lateral meniscus repair of left knee History of tubal ligation Hx of shoulder surgery Family History Other No significant family history Social History (Updated 08/11/22 @ 13:22 by Nicki Lowery RN) Smoking Status: Never smoker alcohol intake: never current occupational status: retired Travel in the last 8 weeks: None household members: spouse
== END ==
PROVIDERS: PCP Family Medicine; Visit Provider Nurse Practitioner Family
DX: M46.1 Sacroiliitis, not elsewhere classified (principal); M25.551 Pain in right hip
CPT/HCPCS: 99212; G0463

== ENCOUNTER → 2022-09-29 08:22 | Outpatient (CLI) | payer BC, SELFPAY ==
--- NOTE | 2022-09-29 08:24 | MM_ITS ---
PROCEDURE INFORMATION: Exam: MG Bilateral Screening 3D Mammography Exam date and time: 09/29/2022 8:19 AM Age: 57 years old Clinical indication: Screening examination. Her mother had breast cancer at age 51. TECHNIQUE: Imaging protocol: Bilateral Screening tomosynthesis and 2D mammography including computer-aided detection (CAD) when performed. COMPARISON: 1. MG MM DIG SCREENING MAMM BI W/CAD 09/13/2021 8:16 AM 2. MG MM DIG SCREENING MAMM BI W/CAD 09/08/2020 10:58 AM 3. MG MM DIG SCREENING MAMM BI W/CAD 09/01/2019 3:22 PM 4. MG SANJEEV SCRN MAMMO W/CAD BILAT 08/19/2018 9:10 AM FINDINGS: MAMMOGRAPHY: Breast composition: There are scattered areas of fibroglandular density. Mass: None. Architectural distortion: None. Calcifications: No suspicious calcifications. Asymmetric density: None. Skin thickening: None. Axillary adenopathy: None. IMPRESSION: No mammographic evidence of malignancy. Annual screening is recommended unless otherwise clinically indicated. ASSESSMENT: BI-RADS Category 1: Negative
== END ==
PROVIDERS: PCP Family Medicine; Visit Provider Obstetrics & Gynecology Gynecology
DX: Z12.31 Encounter for screening mammogram for malignant neoplasm of breast (principal)
CPT/HCPCS: 77063; 77067

== ENCOUNTER 2022-10-13 23:34 | Emergency (ER) | payer BC, OTHER, SELFPAY ==
[2022-10-13 23:35] VITALS: BP 135/78; PULSE 89; RESP 18; TEMP 36.8; O2SAT 98; BMI 26.6
[2022-10-14 00:41] LABS: Basophils # 0.1 K/mm3 (0-0.2); Basophils % 0.8 % (0.1-2.0); Eosinophils # 0.2 K/mm3 (0.0-0.4); Eosinophils % 1.7 % (0.1-12.0); Hematocrit 44.9 % (37.0-47.0); Hemoglobin 15.1 g/dL (12.2-16.2); Lymphocytes # 1.7 K/mm3 (0.7-4.5); Lymphocytes % 14.7 % (10-50); Mean Corpuscular HGB Conc 33.6 g/dL (31.8-35.4); Mean Corpuscular Hemoglobin 30.7 pg (27.0-31.2); Mean Corpuscular Volume 91.4 fl (81-99); Mean Platelet Volume 8.3 fl (7.4-10.4); Monocytes # 0.4 K/mm3 (0.1-1.0); Monocytes % 3.6 % (1.7-9.3); Neutrophils % 79.2 % (37.0-80.0); Platelet Count 312 K/mm3 (142-424); Red Blood Count 4.91 M/mm3 (4.20-5.40); Red Cell Distribution Width 12.6 % (11.5-17.5); White Blood Count 11.3 K/mm3 (4.8-10.8)
[2022-10-14 00:51] LABS: Alanine Aminotransferase 27 U/L (12-78); Albumin Level 4.7 g/dl (3.5-5.0); Albumin/Globulin Ratio 1.6 (1.1-1.8); Alkaline Phosphatase 81 U/L (38-126); Aspartate Amino Transferase 38 U/L (14-36); Bilirubin,Total 0.6 mg/dl (0.2-1.3); Blood Urea Nitrogen 20 mg/dl (7-17); Calcium 8.9 mg/dl (8.4-10.2); Carbon Dioxide 27 mmol/L (22.0-30.0); Chloride 103 mmol/L (98-107); Creatinine Clearance Estimated 95 mL/min (50-200); Estimated Glomerular Filt Rate 73 ml/min (>60); GFR (African American) 89 ML/MIN (>60); Globulin 2.9 g/dL (1.3-3.2); Glucose 137 mg/dl (74-100); Sodium 140 mmol/L (136-145); Total Protein,Serum 7.6 g/dl (6.3-8.2)
--- NOTE | 2022-10-14 01:47 | HMH.EDGENADL ---
Discharge Plan Disposition Patient Disposition: Home, Self-Care Condition: Good Prescriptions Prescriptions: New prednisone 20 mg tablet 20 mg PO DAILY 5 Days Qty: 5 0RF No Action levothyroxine 75 MCG tablet 75 mcg PO DAILY Referrals Follow up/Referrals: Marvin Obregon MD [Primary Care Provider] - See instructions Activity Restrictions/Add. Instructions Additional Instructions/Restrictions: Recommend taking the steroids as prescribed and intermittently using twice daily famotidine 20 mg [id number] as well as Benadryl 25 mg to 50 mg as needed up to 3 times per day. If you have any significant shortness of breath or respiratory distress please call 911 or return to the emergency department soon as possible. Clinical Impressions Clinical Impression: Angioedema Discharge ED Provider: Mainor Morales Adult HPI General Chief complaint: Allergic Reaction Stated complaint: Lower lip swollen, allergic reaction Time Seen by Provider: 10/14/22 00:04 Mode of Arrival: Family Vehicle Source of Information: Patient Limitations: No Limitations Description of Symptoms (Recalled from ER Triage Doc. by RN): Pt c/o lower lip swelling that began at 2100 10/13. States she had some prednisone at home and took 1x 20mg tab. Denies any decrease in her symtoms. Denies itching, soa, or dyspnea. Denies any tongue swelling at this time. She has had allergy testing and this type of swelling before , but denies any type of known allergen. History of Present Illness HPI narrative: 57-year-old female presents with swelling of her lower lip started at 9 PM on 10/13. States that she has a history of idiopathic angioedema this is occurred several times initially with her eyes and now occurs with her lower lip. She had significant work-up with no known allergen and no known cause of the swelling. Typically gets better with steroid she did have prednisone at home to 20 mg of p.o. prednisone prior to arrival. Denies itching shortness of breath vomiting and rash. Related Data Home Medications Medication Instructions Recorded Confirmed levothyroxine 75 mcg tablet 75 mcg PO DAILY THYROID 12/18/21 09/25/22 Previous Rx's Medication Instructions Recorded prednisone 20 mg tablet 20 mg PO DAILY 5 days #5 tabs 10/14/22 Allergies Allergy/AdvReac Type Severity Reaction Status Date / Time No Known Allergies Allergy Verified 12/18/21 09:42 [facility] Disclaimer: The information contained in this section may have been updated after the patient was seen, as this information can be updated by other users. Medical History Hypothyroid Surgical History H/O lateral meniscus repair of left knee History of tubal ligation Hx of shoulder surgery Family History Other No significant family history Social History (Updated 08/11/22 @ 13:22 by Nicki Lowery RN) Smoking Status: Former smoker alcohol intake: never current occupational status: retired Travel in the last 8 weeks: None household members: spouse ROS Obtained: Yes Systems reviewed as appropriate & no additional complaints except as documented Physical Exam General General appearance: alert and in no apparent distress Head Head exam: atraumatic and normocephalic Eye Eye exam: Present normal appearance ENT ENT exam: Present other (Lower lip is significantly edematous floor the mouth is within normal limits there is no surrounding facial erythema. Posterior pharynx is within normal limits tongue is also not edematous) Neck Neck exam: Present trachea midline; Absent tenderness Chest Chest inspection: Present symmetric chest wall rise Respiratory Respiratory exam: Present normal lung sounds bilaterally; Absent respiratory distress or wheezes Cardiovascular Cardiovascular exam: Present regu
[2022-10-14 02:31] VITALS: BP 135/72; PULSE 89; RESP 18; TEMP 36.6; O2SAT 98
== END 2022-10-14 02:39 | disposition home or self-care (01) ==
PROVIDERS: Emergency Provider Student in an Organized Health Care Education/Training Program; PCP Family Medicine
DX: T78.3XXA Angioneurotic edema, initial encounter (principal); E03.9 Hypothyroidism, unspecified; Z79.52 Long term (current) use of systemic steroids; Z79.899 Other long term (current) drug therapy; Z87.891 Personal history of nicotine dependence
CPT/HCPCS: 80053; 85025; 99283

== ENCOUNTER → 2022-12-16 10:59 | Outpatient (CLI) | payer BC, OTHER, SELFPAY ==
--- NOTE | 2022-12-16 10:59 | MR_ITS ---
PROCEDURE INFORMATION: Exam: MR Right Lower Extremity Joint Without Contrast; Hip Exam date and time: 12/16/2022 11:17 AM Age: 57 years old Clinical indication: Pain; Hip; Right; Additional info: Right hip and groin pain TECHNIQUE: Imaging protocol: Magnetic resonance imaging of the right lower extremity joint without contrast. Exam focused on the hip. COMPARISON: CR XR HIP RT 2-3V W/PELVIS 04/28/2022 9:55 AM FINDINGS: Bones/joints: Small right hip effusion. Osteopenia. Moderately severe degenerative changes of right hip. Moderate degenerative changes of visualized left hip. Labrum: Linear hyperintense signal extending to articular cartilage in right anterosuperior acetabular labrum. TENDONS: Tendons of iliopsoas group: Unremarkable. No evidence of tear. Tendons of medial compartment of thigh: Unremarkable. No evidence of tear. Tendons of lateral rotators of hip: Unremarkable. No evidence of tear. Tendons of gluteal group: Unremarkable. No evidence of tear. Muscles: Grossly symmetric and intact visualized muscles and tendons. Soft tissues: Unremarkable. Other findings: Intrapelvic structures suboptimally evaluated in visualized. IMPRESSION: 1. Right anterosuperior degenerative acetabular labral tear. 2. Moderately severe degenerative changes of right hip with small hip effusion. 3. Moderate degenerative changes of visualized left hip.
== END ==
PROVIDERS: PCP Family Medicine; Visit Provider Family Medicine
DX: M25.551 Pain in right hip (principal); R10.31 Right lower quadrant pain
CPT/HCPCS: 73721

== ENCOUNTER → 2023-01-01 09:36 | Outpatient (POV) | payer BC, SELFPAY ==
[2023-01-01 09:50] VITALS: BP 154/82; PULSE 79; RESP 18; O2SAT 98; BMI 26.6
--- NOTE | 2023-01-01 10:05 | EXP.PAIN.SOA ---
[facility] Pain Management SOAP Note Subjective:: Patient is a pleasant 57-year-old female who presents today for 3-month follow-up. We are currently treating the patient for sacroiliitis, right hip pain. Today she rates her pain a 6 out of 10. Patient denies any new trauma or injury. Patient denies any change to location or type of pain she experiences. She continues to states she has pain in her right hip radiating into her right groin and describes this as an aching, throbbing sensation that is worse with increased activity. Patient states she has been unable to continue her regular activities such as golf and pickleball over the last month due to the continued pain. Patient did recently have a updated MRI of her right hip that did show a right labrum tear. She states that she has been given a referral for Dr. Ventura at [facility] however at this time she has not heard from this office. Patient does use [id number] Tylenol and ibuprofen as needed with her symptoms. She has previously had a right intra-articular hip injection at the end of July that provided significant relief of at least 75% lasting several months. Her Ugo is [id number]. Its been reviewed and appropriate. Review of Systems: General: No recent weight changes, no fever, no sleep disturbances Respiratory: No cough, no shortness of air, no recurring pulmonary infections Cardiovascular/peripheral vascular: No chest pain, no palpitations, no edema, no shortness of breath Gastrointestinal: No new onset incontinence, normal bowel movements reported Genitourinary: No new onset incontinence Musculoskeletal: Right hip/groin pain Psychiatric: [Normal mood/affect] Neurological: [Denies weakness in extremities], [denies balance issues] Objective:: Physical Exam: General: Alert and oriented x3, no acute distress, pleasant and cooperative Lungs: Respirations even and unlabored, symmetrical chest expansion Eyes: PERRL Musculoskeletal: Flexion and extension of right hip somewhat guarded secondary to pain, [antalgic gait noted] Neurological: Speech clear, no gross sensory deficit PROCEDURE INFORMATION: Exam: MR Right Lower Extremity Joint Without Contrast; Hip Exam date and time: 12/16/2022 11:17 AM Age: 57 years old Clinical indication: Pain; Hip; Right; Additional info: Right hip and groin pain TECHNIQUE: Imaging protocol: Magnetic resonance imaging of the right lower extremity joint without contrast. Exam focused on the hip. COMPARISON: CR XR HIP RT 2-3V W/PELVIS 04/28/2022 9:55 AM FINDINGS: Bones/joints: Small right hip effusion. Osteopenia. Moderately severe degenerative changes of right hip. Moderate degenerative changes of visualized left hip. Labrum: Linear hyperintense signal extending to articular cartilage in right anterosuperior acetabular labrum. TENDONS: Tendons of iliopsoas group: Unremarkable. No evidence of tear. Tendons of medial compartment of thigh: Unremarkable. No evidence of tear. Tendons of lateral rotators of hip: Unremarkable. No evidence of tear. Tendons of gluteal group: Unremarkable. No evidence of tear. Muscles: Grossly symmetric and intact visualized muscles and tendons. Soft tissues: Unremarkable. Other findings: Intrapelvic structures suboptimally evaluated in visualized. IMPRESSION: 1. ? Right anterosuperior degenerative acetabular labral tear. 2. ? Moderately severe degenerative changes of right hip with small hip effusion. 3. ? Moderate degenerative changes of visualized left hip. Assessment:: Sacroiliitis, right hip pain, osteoarthritis right hip Plan:: Patient is experiencing worsening right hip pain with limited range of motion. I have discussed with the patient that she may benefit from repeat right hip intra-articular injections. Patient did previously have a intra-articular injection that provided 75% relief lasting several months. Risk and benefits of th
== END ==
PROVIDERS: Visit Provider Nurse Practitioner Family
DX: M46.1 Sacroiliitis, not elsewhere classified (principal); M16.11 Unilateral primary osteoarthritis, right hip; M25.552 Pain in left hip
CPT/HCPCS: 99212; G0463

== ENCOUNTER 2023-01-09 12:41 | Day surgery (SDC) | payer BC, OTHER, SELFPAY ==
[2023-01-09 13:14] VITALS: BP 145/77; PULSE 76; RESP 18; TEMP 36.7; O2SAT 97; BMI 27.3
[2023-01-09 13:20] VITALS: BP 183/97; PULSE 81; RESP 18; O2SAT 98
[2023-01-09 13:22] VITALS: BP 183/97; PULSE 81; RESP 18; O2SAT 97
[2023-01-09 13:23] VITALS: BP 164/79; PULSE 75; RESP 18; O2SAT 97
--- NOTE | 2023-01-09 13:26 | P.PCN_ITS ---
Procedure Date: 01/09/23 Time: 13:30 Anesthesiologist:: Camden Hylton CRNA Complications:: None Pre-procedure Diagnosis:: Labrum tear right hip Post-procedure Diagnosis:: Same Indications for Procedure:: Patient is a pleasant 57-year-old female that comes our clinic today for right intra-articular hip injection. Patient has confirmed right labrum hip tear. She has surgery planned for repair late April. Surgeon recommended right intra- articular hip injection for some relief at this time. Procedure Details:: Details of the procedure were explained to the patient. The patient was taken to procedure room placed in the supine position. The area over the right hip was cleaned using chlorhexidine as a cleansing solution. Using fluoroscopy guidance a 3 and half inch 22-gauge spinal needle was used to access the right hip joint without difficulty. After negative aspiration 3 cc of 1% lidocaine +3 cc of 0.25% Marcaine and 40 mg of Depo-Medrol was injected. Needle was withdrawn. Band-Aid applied. Patient tolerated procedure without difficulty. There are no complications. Plan and Disposition:: Patient was discharged without incident.
== END 2023-01-09 13:23 | disposition home or self-care (01) ==
PROVIDERS: PCP Family Medicine; Visit Provider Nurse Anesthetist, Certified Registered
DX: M25.551 Pain in right hip (principal); M16.11 Unilateral primary osteoarthritis, right hip; M46.1 Sacroiliitis, not elsewhere classified; S73.101A Unspecified sprain of right hip, initial encounter
CPT/HCPCS: 20610; 77002; J1040

== ENCOUNTER → 2023-01-24 08:20 | Outpatient (POV) | payer BC, SELFPAY ==
[2023-01-24 08:34] VITALS: BP 137/83; PULSE 76; RESP 18; O2SAT 99; BMI 27.8
--- NOTE | 2023-01-24 08:41 | EXP.PAIN.SOA ---
[facility] Pain Management SOAP Note Subjective:: Patient is a pleasant 57-year-old female who presents today for follow-up of right intra-articular hip injection on 01/09/2023. We are currently treating the patient for sacroiliitis, right hip pain. Today she rates her pain a 6 out of 10. She states she had approximately 75% improvement following this injection lasting 10 days. She does feel like she is back to her baseline at today's visit. She describes her pain as a aching, throbbing sensation that is worse with increased activity. She does state it interferes with her ability to perform activities of daily living such as cooking and cleaning or doing any recreational sports. Patient does currently take naproxen and Tylenol however she gets only minimal improvement. Patient is scheduled for surgery on May 10 to repair a labrum tear. Patient is prescribed compounding cream however she states she has not noticed significant improvement. Her Ugo is [id number]. Its been reviewed and appropriate. Review of Systems: General: No recent weight changes, no fever, no sleep disturbances Respiratory: No cough, no shortness of air, no recurring pulmonary infections Cardiovascular/peripheral vascular: No chest pain, no palpitations, no edema, no shortness of breath Gastrointestinal: No new onset incontinence, normal bowel movements reported Genitourinary: No new onset incontinence Musculoskeletal: Right hip pain Psychiatric: [Normal mood/affect] Neurological: [Denies weakness in extremities], [denies balance issues] Objective:: Physical Exam: General: Alert and oriented x3, no acute distress, pleasant and cooperative Lungs: Respirations even and unlabored, symmetrical chest expansion Eyes: PERRL Musculoskeletal: Flexion and extension of lumbar [spine] somewhat guarded secondary to pain, [antalgic gait noted] Neurological: Speech clear, no gross sensory deficit Assessment:: Sacroiliitis, right hip pain, osteoarthritis right hip, right hip labrum tear Plan:: Patient continues to have significant pain in her right hip however she did have 75% improvement following an intra-articular injection lasting 10 days. I have discussed with the patient that she may benefit repeating this injection. Risk and benefits were discussed with the patient and she would like to proceed forward with this plan of care. I will also order her diclofenac 75 mg twice daily. Patient denies any cardiac or kidney issues. I have counseled the patient to discontinue all other NSAIDs while taking this medication and to take it with food to minimize GI upset. I will provide a 14-day supply of this medication. Patient will be scheduled for a right hip intra-articular injection. Patient has been instructed to contact the clinic with any concerns before the next appointment. Dr. Castellon has reviewed this note and agrees with this plan of care. This note was dictated using voice recognition software and make contain errors or omissions. [facility] Disclaimer: The information contained in this section may have been updated after the patient was seen, as this information can be updated by other users. Medical History Angioedema Hypothyroid Low back pain Menopause Surgical History H/O lateral meniscus repair of left knee History of tubal ligation Hx of shoulder surgery Family History Father Hyperlipidemia Hypertension Mother Cancer BREAST Other No significant family history Social History Smoking Status: Former smoker years smoked: 4 how long ago did patient quit smokin YEARS alcohol intake: current substance use type: denies use current occupational status: retired Travel in the last 8 weeks: None household members: spou
== END | disposition home or self-care (01) ==
PROVIDERS: PCP Nurse Practitioner Family; Visit Provider Nurse Practitioner Family
DX: M46.1 Sacroiliitis, not elsewhere classified (principal); M25.551 Pain in right hip; G89.29 Other chronic pain
CPT/HCPCS: 99212; G0463

== ENCOUNTER 2023-01-30 11:04 | Day surgery (SDC) | payer BC, OTHER, SELFPAY ==
[2023-01-30 11:15] VITALS: BP 149/89; PULSE 68; RESP 18; TEMP 36.8; O2SAT 95; BMI 26.6
[2023-01-30 11:22] VITALS: BP 164/88; PULSE 68; RESP 18; O2SAT 98
[2023-01-30 11:24] VITALS: BP 164/88; PULSE 68; RESP 18; O2SAT 98
[2023-01-30 11:25] VITALS: BP 155/79; PULSE 59; RESP 18; O2SAT 95
--- NOTE | 2023-01-30 11:25 | P.PCN_ITS ---
Procedure Date: 01/30/23 Time: 11:26 Anesthesiologist:: Camden Hylton CRNA Complications:: None Pre-procedure Diagnosis:: Osteoarthritis right hip Post-procedure Diagnosis:: Same. Indications for Procedure:: Very pleasant 57-year-old female comes our clinic today for right intra- articular hip injection. Patient complains of right hip pain for the last year. Patient states she is having the right hip replaced later this summer. She has had this injection in the past with significant improvement terms of her right hip pain. Procedure Details:: Details of the procedure were explained to the patient. The patient was taken to procedure room placed in the supine position. The area over the right hip was cleaned using chlorhexidine as a cleansing solution. Using fluoroscopy guidance a 3 and half inch 22-gauge spinal needle was used to access the right hip joint without difficulty. After negative aspiration 3 cc of 1% lidocaine +3 cc of 0.25% Marcaine and 40 mg of Depo-Medrol was injected. Needle was withdrawn. Band-Aid applied. Patient tolerated procedure without difficulty. There are no complications. Plan and Disposition:: Patient was discharged without incident.
== END 2023-01-30 11:25 | disposition home or self-care (01) ==
PROVIDERS: PCP Family Medicine; Visit Provider Nurse Anesthetist, Certified Registered
DX: M16.11 Unilateral primary osteoarthritis, right hip (principal)
CPT/HCPCS: 20610; 77002; J1040

== ENCOUNTER → 2023-02-19 11:05 | Outpatient (POV) | payer BC, SELFPAY ==
--- NOTE | 2023-02-19 11:40 | EXP.PAIN.SOA ---
[facility] Pain Management SOAP Note Subjective:: Patient is a pleasant 57-year-old female who presents today for right hip intra-articular injection on 01/30/2023. We are currently treating the patient for sacroiliitis, right hip pain. Today she states that she has had at least 50% improvement following this injection and feels like it still continuing to provide additional relief. She does rate her pain a 4 out of 10 today and denies any new injury or trauma. Patient states that she has been able to increase her activity however occasionally she will still experience more pain on certain days. Patient has been recently prescribed diclofenac 75 mg twice a day and she states that this does seem to improve her symptoms. She also states she occasionally has taken Tylenol with this medication and seems to do better. Patient is scheduled to have a total hip replacement on May 10 so she is unable to have any additional steroid injections until after this procedure. Patient is interested in any additional help we may be able to provide. Patient has tried compounding cream however she did not notice significant improvement. Her Ugo is [id number]. Its been reviewed and appropriate. Review of Systems: General: No recent weight changes, no fever, no sleep disturbances Respiratory: No cough, no shortness of air, no recurring pulmonary infections Cardiovascular/peripheral vascular: No chest pain, no palpitations, no edema, no shortness of breath Gastrointestinal: No new onset incontinence, normal bowel movements reported Genitourinary: No new onset incontinence Musculoskeletal: Right hip pain Psychiatric: [Normal mood/affect] Neurological: [Denies weakness in extremities], [denies balance issues] Objective:: Physical Exam: General: Alert and oriented x3, no acute distress, pleasant and cooperative Lungs: Respirations even and unlabored, symmetrical chest expansion Eyes: PERRL Musculoskeletal: Flexion and extension of right hip somewhat guarded secondary to pain, [antalgic gait noted] Neurological: Speech clear, no gross sensory deficit Assessment:: Right hip osteoarthritis, right hip pain, sacroiliitis Plan:: I will refill the patient's diclofenac 75 mg twice a day and also order tizanidine 4 mg at bedtime and provide a 14-day supply of this medication. Patient has been counseled to contact our office if this medication does provide significant improvement and she would like additional refills. Patient will return to clinic in 1 month for reevaluation of symptoms, medication refill and follow-up. Patient has been instructed to contact the clinic with any concerns before the next appointment. Dr. Castellon has reviewed this note and agrees with this plan of care. This note was dictated using voice recognition software and make contain errors or omissions. [facility] Disclaimer: The information contained in this section may have been updated after the patient was seen, as this information can be updated by other users. Medical History Angioedema Hypothyroid Low back pain Menopause Surgical History H/O lateral meniscus repair of left knee History of tubal ligation Hx of shoulder surgery Family History Father Hyperlipidemia Hypertension Mother Cancer BREAST Other No significant family history Social History Smoking Status: Former smoker years smoked: 4 how long ago did patient quit smokin YEARS alcohol intake: current substance use type: denies use current occupational status: retired Travel in the last 8 weeks: None household members: spouse marital status: number of children: 2
[2023-02-19 11:57] VITALS: BP 171/97; PULSE 75; RESP 18; O2SAT 98; BMI 26.4
--- NOTE | 2023-03-14 10:30 | PC.NURSE ---
called in Rx to [facility] pharmacy for Diclofenac 70mg PO BID with no refills per provider order.
== END | disposition home or self-care (01) ==
PROVIDERS: PCP Nurse Practitioner Family; Visit Provider Nurse Practitioner Family
DX: M16.11 Unilateral primary osteoarthritis, right hip (principal); M46.1 Sacroiliitis, not elsewhere classified; M25.551 Pain in right hip
CPT/HCPCS: 99212; G0463

== ENCOUNTER → 2023-03-15 08:18 | Outpatient (CLI) | payer BC, SELFPAY ==
[2023-03-15 09:28] LABS: Thyroid Stimulating Hormone 2.07 uIU/mL (0.465-4.68)
== END ==
PROVIDERS: PCP Nurse Practitioner Family; Visit Provider Family Medicine
DX: E03.9 Hypothyroidism, unspecified (principal)
CPT/HCPCS: 36415; 84443

== ENCOUNTER → 2023-03-19 09:19 | Outpatient (POV) | payer BC, SELFPAY ==
--- NOTE | 2023-03-19 10:11 | EXP.PAIN.SOA ---
[facility] Pain Management SOAP Note Subjective:: Patient is a pleasant 57-year-old female who presents today for follow-up. We are currently treating the patient for right hip pain, sacroiliitis. Today she rates her pain a 5 out of 10. Patient denies any new trauma or injury. Patient denies any change location or type of pain she experiences. Patient states that the diclofenac that was prescribed at our last visit has continued to provide significant improvement. Patient states that she has not yet started on the 4 mg tizanidine at bedtime. She does officially have a operation date for her right hip replacement of May 10. She is having this done by Dr. Ventura. Patient is unable to have any additional injective therapy until following this procedure. Patient is prescribed compounding cream. Her Ugo is [id number]. Its been reviewed and appropriate. Review of Systems: General: No recent weight changes, no fever, no sleep disturbances Respiratory: No cough, no shortness of air, no recurring pulmonary infections Cardiovascular/peripheral vascular: No chest pain, no palpitations, no edema, no shortness of breath Gastrointestinal: No new onset incontinence, normal bowel movements reported Genitourinary: No new onset incontinence Musculoskeletal: Right hip pain Psychiatric: [Normal mood/affect] Neurological: [Denies weakness in extremities], [denies balance issues] Objective:: Physical Exam: General: Alert and oriented x3, no acute distress, pleasant and cooperative Lungs: Respirations even and unlabored, symmetrical chest expansion Eyes: PERRL Musculoskeletal: Flexion and extension of right hip somewhat guarded secondary to pain, [antalgic gait noted] Neurological: Speech clear, no gross sensory deficit Assessment:: Right hip pain, sacroiliitis Plan:: Patient is doing well with her current medication regimen. I will send in a refill of her diclofenac 75 mg twice daily and provide a 3-month supply of this medication. Patient will return to clinic in 3 months for reevaluation of symptoms, medication refill and follow-up. I have counseled the patient that if she does end up getting significant relief with the tizanidine she can call for a refill over the phone. Patient has been instructed to contact the clinic with any concerns before the next appointment. Dr. Castellon has reviewed this note and agrees with this plan of care. This note was dictated using voice recognition software and make contain errors or omissions. [facility] Disclaimer: The information contained in this section may have been updated after the patient was seen, as this information can be updated by other users. Medical History Angioedema Hypothyroid Low back pain Menopause Surgical History H/O lateral meniscus repair of left knee History of tubal ligation Hx of shoulder surgery NAYELI. Family History Father Hyperlipidemia Hypertension Mother Cancer BREAST Other No significant family history Social History Smoking Status: Former smoker years smoked: 4 how long ago did patient quit smokin YEARS alcohol intake: current substance use type: denies use current occupational status: retired Travel in the last 8 weeks: None household members: spouse marital status: number of children: 2
[2023-03-19 10:59] VITALS: BP 174/99; PULSE 68; RESP 18; O2SAT 96; BMI 28.1
== END | disposition home or self-care (01) ==
PROVIDERS: Visit Provider Nurse Practitioner Family
DX: M46.1 Sacroiliitis, not elsewhere classified (principal); M25.551 Pain in right hip
CPT/HCPCS: 99212; G0463

== ENCOUNTER → 2023-07-02 09:04 | Outpatient (POV) | payer BC, SELFPAY ==
[2023-07-02 09:15] VITALS: BP 168/84; PULSE 58; RESP 18; O2SAT 99; BMI 26.9
--- NOTE | 2023-07-02 09:17 | EXP.PAIN.SOA ---
[facility] Pain Management SOAP Note Subjective:: Patient is a pleasant 57-year-old female who presents today for follow-up. We are currently treating the patient for right hip pain, sacroiliitis. Today she rates her pain a 5 out of 10. Patient states from our last visit she did have a right hip total replacements in April and that she has done well following this. Patient states that she has no additional pain in that hip now and that she has been able to increase her activity. Patient does state her pain today is all in her left knee. Patient states that this did start back when she was still dealing with her hip pain and that she does believe it has to do with how she altered her gait when she was having her previous hip pain. Patient states that she had hoped that following her replacement that the knee pain would get better however it still continued. Patient does describe this as an aching sensation that is worse with increased activity. It does interfere with her ability to perform activities of daily living such as cooking and cleaning. Patient is very active and did recreational sports before all her pain started. She would like to be able to get back to this. Previously she was on 4 mg tizanidine at bedtime however since her surgery she has not even needed to take this medication. Patient is prescribed compounded cream however she states it did not help on her left knee. She states she has tried Aspercreme that did provide some additional improvement. Her Ugo is [id number]. Its been reviewed and appropriate. Review of Systems: General: No recent weight changes, no fever, no sleep disturbances Respiratory: No cough, no shortness of air, no recurring pulmonary infections Cardiovascular/peripheral vascular: No chest pain, no palpitations, no edema, no shortness of breath Gastrointestinal: No new onset incontinence, normal bowel movements reported Genitourinary: No new onset incontinence Musculoskeletal: Left knee pain Psychiatric: [Normal mood/affect] Neurological: [Denies weakness in extremities], [denies balance issues] Objective:: Physical Exam: General: Alert and oriented x3, no acute distress, pleasant and cooperative Lungs: Respirations even and unlabored, symmetrical chest expansion Eyes: PERRL Musculoskeletal: Flexion and extension of left knee somewhat guarded secondary to pain, [antalgic gait noted] Neurological: Speech clear, no gross sensory deficit Assessment:: Right hip pain, sacroiliitis, left knee pain Plan:: Patient is experiencing significant pain in her left knee with limited range of motion. I have discussed with the patient that she may benefit from left knee intra-articular injection. Risk and benefits were explained to the patient and she would like to proceed forward with this plan of care. Patient will be scheduled for a left knee intra-articular injection. Patient has been instructed to contact the clinic with any concerns before the next appointment. Dr. Castellon has reviewed this note and agrees with this plan of care. This note was dictated using voice recognition software and make contain errors or omissions. [facility] Disclaimer: The information contained in this section may have been updated after the patient was seen, as this information can be updated by other users. Medical History Angioedema Since the age of 18, no correlation to meds/foods/outdoors Hypothyroid Low back pain Menopause Surgical History H/O lateral meniscus repair of left knee History of tubal ligation Hx of shoulder surgery NAYELI. Family History Father Hyperlipidemia Hypertension Mother Cancer BREAST Other No significant family history Social History Smoking Status: Former smoker
== END ==
PROVIDERS: PCP Nurse Practitioner Family; Visit Provider Nurse Practitioner Family
DX: M25.551 Pain in right hip (principal); M46.1 Sacroiliitis, not elsewhere classified; M25.562 Pain in left knee
CPT/HCPCS: 99212; G0463

== ENCOUNTER 2023-07-10 11:41 | Day surgery (SDC) | payer BC, SELFPAY ==
[2023-07-10 11:45] VITALS: BP 147/78; PULSE 78; RESP 18; TEMP 36.5; O2SAT 98; BMI 27.0
[2023-07-10 11:56] VITALS: BP 144/88; PULSE 75; RESP 18; O2SAT 98
[2023-07-10 11:57] VITALS: BP 144/88; PULSE 75; RESP 18; O2SAT 98
[2023-07-10 12:00] VITALS: BP 141/82; PULSE 80; RESP 18; O2SAT 98
--- NOTE | 2023-07-10 12:05 | EXP.PAIN.PRO ---
Procedure Date: 07/10/23 Time: 11:50 Anesthesiologist:: Camden Hylton CRNA Complications:: None Pre-procedure Diagnosis:: Osteoarthritis left knee. Chronic left knee pain. Post-procedure Diagnosis:: Same. Indications for Procedure:: Patient is a very pleasant 57-year-old female that comes our clinic today for left intra-articular knee injection. Patient complains of knee pain she describes as constant, dull, aching. Patient has difficulty ambulating due to knee pain. She rates her pain 7/10. Procedure Details:: Procedure Details: Left intra-articular knee injection Informed consent was obtained risk and benefits of the procedure were explained to the patient. Patient was taken the procedure room left knee was prepped using ChloraPrep. A 25-gauge needle was used to inject 10 mL bupivacaine 0.25% and Depo-Medrol 40 mg into each knee. The patient tolerated the procedure well with no complications. Plan and Disposition:: Patient was discharged without incident.
== END 2023-07-10 12:00 | disposition home or self-care (01) ==
LOC: SC.PAINP 11:42
PROVIDERS: PCP Nurse Practitioner Family; Visit Provider Nurse Anesthetist, Certified Registered
DX: M17.12 Unilateral primary osteoarthritis, left knee (principal); M25.562 Pain in left knee; G89.29 Other chronic pain
CPT/HCPCS: 20610; J1040

== ENCOUNTER → 2023-07-12 09:12 | Outpatient (CLI) | payer BC, SELFPAY ==
[2023-07-12 10:05] LABS: Basophils # 0.1 K/mm3 (0-0.2); Basophils % 0.4 % (0.1-2.0); Eosinophils # 0.1 K/mm3 (0.0-0.4); Eosinophils % 0.7 % (0.1-12.0); Hematocrit 45.8 % (37.0-47.0); Hemoglobin 14.4 g/dL (12.2-16.2); Lymphocytes # 2.4 K/mm3 (0.7-4.5); Lymphocytes % 18.2 % (10-50); Mean Corpuscular HGB Conc 31.4 g/dL (31.8-35.4); Mean Corpuscular Hemoglobin 29.4 pg (27.0-31.2); Mean Corpuscular Volume 93.6 fl (81-99); Mean Platelet Volume 8.7 fl (7.4-10.4); Monocytes # 0.7 K/mm3 (0.1-1.0); Monocytes % 5.4 % (1.7-9.3); Neutrophils # 9.9 K/mm3 (1.8-7.8); Neutrophils % 75.3 % (37.0-80.0); Platelet Count 341 K/mm3 (142-424); White Blood Count 13.1 K/mm3 (4.8-10.8)
[2023-07-12 11:15] LABS: Alanine Aminotransferase 22 U/L (12-78); Albumin Level 4.7 g/dl (3.5-5.0); Alkaline Phosphatase 65 U/L (38-126); Anion Gap 16.1 mEq/L (5-15); Aspartate Amino Transferase 24 U/L (14-36); Bilirubin,Direct 0.1 mg/dl (0.0-0.4); Bilirubin,Indirect 0.3 mg/dL (0.0-0.9); Bilirubin,Total 0.4 mg/dl (0.2-1.3); Bilirubin,Unconjugated 0.3 mg/dL (0.0-1.1); Blood Urea Nitrogen 14 mg/dl (7-17); Calcium 9.5 mg/dl (8.4-10.2); Carbon Dioxide 26 mmol/L (22.0-30.0); Chloride 103 mmol/L (98-107); Chol/HDL Ratio 2.5 (1-3.5); Cholesterol 189 mg/dl (140-200); Estimated Glomerular Filt Rate 73 ml/min (>60); GFR (African American) 89 ML/MIN (>60); Glucose 90 mg/dl (74-100); HDL Cholesterol 75 mg/dl (40-60); Magnesium 1.9 mg/dl (1.6-2.3); Potassium 4.1 mmoL/L (3.5-5.1); Sodium 141 mmol/L (136-145); Total Protein,Serum 7.5 g/dl (6.3-8.2); Triglycerides 109 mg/dl (30-150); VLDL Cholesterol 22 mg/dL (0-40)
[2023-07-12 11:25] LABS: Direct LDL Cholesterol 87.19 mg/dL (100-129)
[2023-07-12 11:30] LABS: Free T4 (Free Thyroxine) 1.13 ng/dl (0.78-2.19)
== END ==
PROVIDERS: PCP Nurse Practitioner Family; Visit Provider Nurse Practitioner
DX: R00.1 Bradycardia, unspecified (principal); I10 Essential (primary) hypertension; E03.9 Hypothyroidism, unspecified; G47.33 Obstructive sleep apnea (adult) (pediatric); R94.31 Abnormal electrocardiogram [ECG] [EKG]
CPT/HCPCS: 36415; 80048; 80061; 80076; 83735; 84439; 84443; 85025; 93270

== ENCOUNTER → 2023-07-23 11:31 | Outpatient (POV) | payer BC, SELFPAY ==
[2023-07-23 12:00] VITALS: BP 155/85; PULSE 76; RESP 20; BMI 27.3
--- NOTE | 2023-07-23 12:29 | EXP.PAIN.SOA ---
[facility] Pain Management SOAP Note Subjective:: This patient is a very pleasant 57-year-old female comes our clinic today for a follow-up visit after receiving left intra-articular knee injection on 07/10/2023. Patient reports 50% overall improvement in the knee joint. However, patient still having medial knee joint pain she describes as constant, intermittent, dull, aching, sharp, stabbing at times. 3 years ago patient had left knee scope with meniscus repair and chondroplasty shaving. However, patient unable to remember if she had medial or lateral meniscus tear. I discussed options of treatment for the patient. These include doing nothing, visiting an orthopedic surgeon or trying a second injection intra-articular cortisone. I told the patient we would consider an intra-articular injection early August. This is her option of choice. Patient had a recent right hip replacement with Dr. Edison Ventura at [facility] in [place]. I informed the patient if in fact we do a second intra-articular knee injection pending results we would send her back to Edison Ventura for consultation regarding left knee pain. [facility] #[id number] has been reviewed and appropriate. Objective:: Patient is awake alert [place] x3. In no acute distress. Flexion-extension lumbar spine somewhat guarded secondary to pain. Deep tendon reflexes upper and lower extremities normal. Motor strength upper and lower extremities normal. There is no gross sensory deficit. Gait is normal. Assessment:: DJD left knee. Chronic pain left knee. Status post left knee scope with meniscus repair and chondroplasty shaving. Plan:: Patient would like to try a second left intra-articular knee injection. I think this is reasonable. However, her previous injection was on 07/10/2023. We will wait until early August. [facility] Disclaimer: The information contained in this section may have been updated after the patient was seen, as this information can be updated by other users. Medical History (Updated 07/12/23 @ 09:03 by Kenyon Mejia RN) Abnormal ECG Angioedema Hypothyroid Low back pain Menopause HERNAN (obstructive sleep apnea) Surgical History H/O lateral meniscus repair of left knee History of tubal ligation Hx of shoulder surgery Family History Father Hyperlipidemia Hypertension Mother Cancer BREAST Other No significant family history Social History Smoking Status: Former smoker years smoked: 4 how long ago did patient quit smokin YEARS alcohol intake: current substance use type: denies use current occupational status: retired Travel in the last 8 weeks: None household members: spouse marital status: number of children: 2
== END ==
PROVIDERS: PCP Nurse Practitioner Family; Visit Provider Nurse Anesthetist, Certified Registered
DX: M17.12 Unilateral primary osteoarthritis, left knee (principal); M25.562 Pain in left knee; G89.29 Other chronic pain
CPT/HCPCS: 99212; G0463

== ENCOUNTER → 2023-08-03 10:06 | Outpatient (CLI) | payer BC, SELFPAY ==
--- NOTE | 2023-08-03 10:09 | CA_ITS ---
APPROVED REPORT EXAM: Comprehensive 2D, Doppler, and color-flow Echocardiogram Bow Machine Operator: Shannon Fonseca, RCS, RVS Ht: 5 ft 8 in Wt: 184lbs BSA: 1.97 BP: 160/81 mmHg Indications: [place], Family HX-Heart disease, SOA, Hypothyroidism 2D Dimensions LVOT 1.82 cm (M/F) 1.5-2.5 LA Volume 69.90 mL LA Volume Index 34.60 mL/m2 (M/F) 16-34 M-Mode Dimensions RVDd 3.39 cm (0.9-2.6) LA Diam 4.20 cm (1.9-4.0) LVDd 4.39 cm (3.5-5.7) Ao Diam 3.12 cm (2.0-3.7) LVDs 2.96 cm (3.5-5.7) IVSd 1.07 cm (0.6-1.1) PWd 0.96 cm (0.6-1.1) EF (Teich) 61.10% FS 32.60% EDV (Teich) 87.20 mL TAPSE 1.24 (<1.7) ESV (Teich) 33.90 mL LV Diastology E Decel Time 237.00 (160-240 msec) E/A Ratio 0.89 MED E' 13.60 (< 7 cm/sec) MED A' 12.60 cm/s E'/MED E' Ratio 5.71 (>14) LAT E' 11.70 (<10 cm/sec) LAT A' 13.50 cm/s E/LAT E' Ratio 6.64 (>14) Aortic Valve LVOT Max 92.00 (70-110 cm/s) LVOT VTI 19.09 cm AoV Peak Caio. 133.00 (50-130 cm/s) AO Peak GR. 7.10 mmHg AO Mean GR. 3.60 (<5 mmHg) AO VTI 25.20 (18-25 cm) NAPOLEON (VTI) 1.97 (2.5-4.5 cm2) Mitral Valve MV A Velocity 87.00 (40-130 cm/s) E/A Ratio 0.89 MV Decel. Time 237.00 (160-240 ms) Tricuspid Valve TR P. Velocity 140.00 cm/s Left Ventricle The left ventricle is normal size. The left ventricular systolic function is normal. The left ventricular ejection fraction is within the normal range. There is normal left ventricular wall thickness. There is normal LV segmental wall motion. The left ventricular diastolic function is normal. LVEF is 55%. Right Ventricle The right ventricle is normal size. The right ventricular systolic function is normal. Atria The left atrium size is normal. The right atrium size is normal. Aortic Valve The aortic valve is normal in structure. The aortic valve is trileaflet. There is no aortic valvular stenosis. No aortic regurgitation is present. Mitral Valve The mitral valve is normal in structure. No evidence of mitral valve stenosis. Trace mitral regurgitation. Tricuspid Valve The tricuspid valve leaflets are thin and pliable. Trace tricuspid regurgitation. There is insufficient TR jet to estimate RVSP. Pulmonic Valve The pulmonary valve is normal in structure. Please pulmonic regurgitation. Great Vessels The aortic root is normal in size. The ascending aorta is normal in size. IVC is normal in size and collapses >50% with inspiration. Pericardium There is no pericardial effusion. Other Information Study Quality: Adequate Conclusion Biventricular systolic function. No significant valvular stenosis or regurgitation. Electronically signed by : Loli Vigil MD 08/05/2023 21:43:04
== END ==
PROVIDERS: PCP Nurse Practitioner Family; Visit Provider Nurse Practitioner
DX: R00.1 Bradycardia, unspecified (principal); R94.31 Abnormal electrocardiogram [ECG] [EKG]; I10 Essential (primary) hypertension; E03.9 Hypothyroidism, unspecified; G47.33 Obstructive sleep apnea (adult) (pediatric)
CPT/HCPCS: 93306

== ENCOUNTER → 2023-08-09 22:26 | Outpatient (CLI) | payer BC, SELFPAY ==
[2023-08-09 18:39] LABS: Basophils % 0.5 % (0.1-2.0); Eosinophils # 0.2 K/mm3 (0.0-0.4); Eosinophils % 1.9 % (0.1-12.0); Hematocrit 43.7 % (37.0-47.0); Hemoglobin 14.8 g/dL (12.2-16.2); Lymphocytes # 2.2 K/mm3 (0.7-4.5); Lymphocytes % 26.2 % (10-50); Mean Corpuscular Hemoglobin 31.5 pg (27.0-31.2); Mean Corpuscular Volume 92.5 fl (81-99); Mean Platelet Volume 8.6 fl (7.4-10.4); Monocytes # 0.4 K/mm3 (0.1-1.0); Monocytes % 4.4 % (1.7-9.3); Neutrophils # 5.6 K/mm3 (1.8-7.8); Platelet Count 311 K/mm3 (142-424); Red Blood Count 4.72 M/mm3 (4.20-5.40); White Blood Count 8.3 K/mm3 (4.8-10.8)
[2023-08-09 19:06] LABS: Chloride 103 mmol/L (98-107); Sodium 140 mmol/L (136-145)
[2023-08-09 19:09] LABS: Alanine Aminotransferase 27 U/L (12-78); Albumin Level 4.9 g/dl (3.5-5.0); Albumin/Globulin Ratio 1.7 (1.1-1.8); Alkaline Phosphatase 81 U/L (38-126); Aspartate Amino Transferase 32 U/L (14-36); Bilirubin,Total 0.5 mg/dl (0.2-1.3); Blood Urea Nitrogen 11 mg/dl (7-17); Calcium 9.3 mg/dl (8.4-10.2); Carbon Dioxide 27 mmol/L (22.0-30.0); Estimated Glomerular Filt Rate 73 ml/min (>60); GFR (African American) 89 ML/MIN (>60); Globulin 2.9 g/dL (1.3-3.2); Glucose 90 mg/dl (74-100); Total Protein,Serum 7.8 g/dl (6.3-8.2)
[2023-08-09 19:13] LABS: Erythrocyte Sedimentation Rate 12 mm/hr (0-30)
[2023-08-09 19:15] LABS: C-Reactive Protein 1.5 mg/L (0-4)
[2023-08-09 19:45] LABS: Uric Acid 6.3 mg/dl (2.5-6.2)
== END ==
PROVIDERS: PCP Nurse Practitioner Family; Visit Provider Nurse Practitioner Family
DX: M25.572 Pain in left ankle and joints of left foot (principal); M25.472 Effusion, left ankle
CPT/HCPCS: 80053; 84550; 85025; 85651; 86140

== ENCOUNTER 2023-08-21 07:47 | Day surgery (SDC) | payer BC, SELFPAY ==
[2023-08-21 08:10] VITALS: BP 129/88; PULSE 86; RESP 18; TEMP 36.4; O2SAT 96; BMI 27.3
[2023-08-21 08:30] VITALS: BP 142/90; BP 155/94; PULSE 100; PULSE 84; RESP 18; RESP 20; O2SAT 95; O2SAT 96
--- NOTE | 2023-08-21 08:33 | EXP.PAIN.PRO ---
Procedure Date: 08/21/23 Time: 08:20 Anesthesiologist:: Camden Hylton CRNA Complications:: None Pre-procedure Diagnosis:: Osteoarthritis left knee. Chronic left knee pain. Post-procedure Diagnosis:: Same. Indications for Procedure:: Patient is a very pleasant 58-year-old female that comes our clinic today for left intra-articular knee injection. Patient is responded well to this injection in the past. Patient complains of left knee pain that is constant, dull, aching. Majority of her pain is medial joint pain. Procedure Details:: Informed consent was obtained risk and benefits of the procedure were explained to the patient. Patient was taken the procedure room the left knee was prepped using ChloraPrep. A 25-gauge needle was used to inject 10 mL bupivacaine 0.25% and Depo-Medrol 40 mg into the left knee. The patient tolerated the procedure well with no complications. Plan and Disposition:: Patient was discharged without incident.
== END 2023-08-21 08:30 | disposition home or self-care (01) ==
PROVIDERS: PCP Nurse Practitioner Family; Visit Provider Nurse Anesthetist, Certified Registered
DX: M17.12 Unilateral primary osteoarthritis, left knee (principal); M25.562 Pain in left knee; G89.29 Other chronic pain
CPT/HCPCS: 20610; J1040

== ENCOUNTER → 2023-09-03 09:55 | Outpatient (POV) | payer BC, SELFPAY ==
--- NOTE | 2023-09-03 09:59 | EXP.PAIN.SOA ---
[facility] Pain Management SOAP Note Subjective:: Patient is a pleasant 58-year-old female who presents today for follow-up of left knee intra-articular injection on 08/21/2023. We are currently treating the patient for right hip pain, sacroiliitis, left knee pain. Today she rates her pain a 2 out of 10. Patient denies any new trauma or injury. She states that for the first 10 days she had 100% relief following this injection. She states she still feels like it is providing additional relief however she can notice it a little bit more on a day-to-day basis but it is still very manageable and much better than what she had been. Patient does states she continues to have significant improvement on her right hip following her hip replacement. She states on a day-to-day basis she feels like it improves. Patient was previously prescribed compounding cream however it did not provide significant relief at her hip however she is requesting a new prescription of this to trial on her knee as needed. She was on 4 mg tizanidine at bedtime however since her surgery she has not even needed to take this medication. Her Ugo has been reviewed and appropriate. Review of Systems: General: No recent weight changes, no fever, no sleep disturbances Respiratory: No cough, no shortness of air, no recurring pulmonary infections Cardiovascular/peripheral vascular: No chest pain, no palpitations, no edema, no shortness of breath Gastrointestinal: No new onset incontinence, normal bowel movements reported Genitourinary: No new onset incontinence Musculoskeletal: Left knee pain Psychiatric: [Normal mood/affect] Neurological: [Denies weakness in extremities], [denies balance issues] Objective:: Physical Exam: General: Alert and oriented x3, no acute distress, pleasant and cooperative Lungs: Respirations even and unlabored, symmetrical chest expansion Eyes: PERRL Musculoskeletal: Flexion and extension of left knee somewhat guarded secondary to pain Neurological: Speech clear, no gross sensory deficit Assessment:: Left knee pain, right hip pain, sacroiliitis Plan:: Patient has had significant improvement following her intra-articular knee injection and does not require any additional injective therapy at this time. I will send in a new order of compounding cream. Patient will return to clinic in 1 month for reevaluation of symptoms and plan of care. Patient has been instructed to contact the clinic with any concerns before the next appointment. Dr. Castellon has reviewed this note and agrees with this plan of care. This note was dictated using voice recognition software and make contain errors or omissions. [facility] Disclaimer: The information contained in this section may have been updated after the patient was seen, as this information can be updated by other users. Medical History Abnormal ECG Angioedema Since the age of 18, no correlation to meds/foods/outdoors Hypothyroid Low back pain Menopause HERNAN (obstructive sleep apnea) Surgical History H/O lateral meniscus repair of left knee History of tubal ligation Hx of shoulder surgery NAYELI. Family History Father Hyperlipidemia Hypertension Mother Cancer BREAST Other No significant family history Social History Smoking Status: Former smoker years smoked: 4 how long ago did patient quit smokin YEARS alcohol intake: current substance use type: denies use current occupational status: other Travel in the last 8 weeks: None household members: spouse marital status: number of children: 2
[2023-09-03 10:14] VITALS: BP 127/79; PULSE 98; RESP 18; O2SAT 96; BMI 27.3
== END ==
PROVIDERS: PCP Nurse Practitioner Family; Visit Provider Nurse Practitioner Family
DX: M25.562 Pain in left knee (principal); M25.551 Pain in right hip; M46.1 Sacroiliitis, not elsewhere classified
CPT/HCPCS: 99212; G0463

== ENCOUNTER → 2023-09-26 10:38 | Outpatient (CLI) | payer BC, SELFPAY ==
[2023-09-26 18:19] LABS: Adenovirus,PCR Not Detected (NotDetected); Coronavirus 19, PCR Not Detected (NotDetected); Coronavirus 229E Not Detected (NotDetected); Coronavirus NL63 Not Detected (NotDetected); Coronovirus HKU1,PCR Not Detected (NotDetected); Human Metapneumovirus Not Detected (NotDetected); Influenza A, PCR Not Detected (NotDetected); Influenza AH1, 2009 Not Detected (NotDetected); Influenza AH1, PCR Not Detected (NotDetected); Influenza AH3,PCR Not Detected (NotDetected); Influenza B, PCR Not Detected (NotDetected); Parainfluenza 1, PCR Not Detected (NotDetected); Parainfluenza 2, PCR Not Detected (NotDetected); Parainfluenza 3, PCR Not Detected (NotDetected); Parainfluenza 4, PCR Not Detected (NotDetected); Respiratory Syncytial Virus Not Detected (NotDetected); Rhinovirus/Enterovirus Not Detected (NotDetected)
[2023-09-27 05:35] LABS: Coronavirus OC43 Detected (NotDetected)
== END ==
PROVIDERS: PCP Nurse Practitioner Family; Visit Provider Nurse Practitioner Family
DX: R05.9 Cough, unspecified (principal); B34.2 Coronavirus infection, unspecified
CPT/HCPCS: 87581; 87632; 87635; 87798

== ENCOUNTER → 2023-10-01 08:16 | Outpatient (CLI) | payer BC, SELFPAY ==
--- NOTE | 2023-10-01 08:25 | MM_ITS ---
PROCEDURE INFORMATION: Exam: MG Bilateral Screening 3D Mammography Exam date and time: 10/01/2023 8:13 AM Age: 58 years old Clinical indication: Screening examination.Positive family history of breast cancer: Mother TECHNIQUE: Imaging protocol: Bilateral Screening tomosynthesis and 2D mammography including computer-aided detection (CAD) when performed. COMPARISON: 1. MG MM DIG SCREENING MAMM BI W/CAD 09/29/2022 8:19 AM 2. MG MM DIG SCREENING MAMM BI W/CAD 09/13/2021 8:16 AM FINDINGS: MAMMOGRAPHY: Breast composition: There are scattered areas of fibroglandular density. Mass: None. Architectural distortion: None. Calcifications: No suspicious calcifications. Asymmetric density: Stable tissue asymmetry in the posterior left lateral breast compared to prior examination dated 2020 Skin thickening: None. Axillary adenopathy: None. IMPRESSION: No mammographic evidence of malignancy. Annual screening is recommended unless otherwise clinically indicated. ASSESSMENT: BI-RADS Category 2: Benign
--- NOTE | 2023-10-01 08:25 | XR_ITS ---
FINAL REPORT TECHNIQUE: Bone densitometry calculations of the lumbar spine and left hip were obtained. CLINICAL HISTORY: SCREENING FINDINGS: Using L1-4, the bone mineral density of the spine is 0.91 g/cm2, corresponding to T-score of -9.2. Using the left hip, the bone mineral density of the femoral neck is 0.73 g/cm2, corresponding to a T-score of -1.7. NOTE: T-score: Standard deviation compared with peak bone mass of young adult mean. *Following the recommendations of the International Society of Bone densitometry, classification of hip BMD is based on the lower of two T-scores; total hip or femoral neck. IMPRESSION: Diminished bone mineral density of the lumbar spine and left hip consistent with osteopenia. Reviewed, Interpreted and Dictated by Royer Suero MD Transcribed by Archana Nuno Authenticated and [facility]
== END ==
PROVIDERS: PCP Nurse Practitioner Family; Visit Provider Obstetrics & Gynecology Gynecology
DX: Z13.820 Encounter for screening for osteoporosis (principal); Z12.31 Encounter for screening mammogram for malignant neoplasm of breast
CPT/HCPCS: 77063; 77067; 77080

== ENCOUNTER → 2023-10-01 09:15 | Outpatient (POV) | payer BC, SELFPAY ==
--- NOTE | 2023-10-01 09:35 | EXP.PAIN.SOA ---
[facility] Pain Management SOAP Note Subjective:: Patient is a pleasant 58-year-old female who presents today for 1 month follow-up. We are currently treating the patient for right hip pain, sacroiliitis, knee pain. Today she rates her pain a 2 out of 10. Patient denies any new trauma or injury. She states she is continue to have significant improvement in her left knee following her intra-articular injection as well as her right hip replacement. Patient does state that she feels like the combination may have been what caused the significant improvement. Patient is prescribed compounded cream and tizanidine 4 mg at bedtime. Patient denies any side effects from this medication. Patient states that she has been able to increase her activity with decreased pain symptoms and has not even had to take these on a regular basis. Her Ugo has been reviewed and is appropriate. Review of Systems: General: No recent weight changes, no fever, no sleep disturbances Respiratory: No cough, no shortness of air, no recurring pulmonary infections Cardiovascular/peripheral vascular: No chest pain, no palpitations, no edema, no shortness of breath Gastrointestinal: No new onset incontinence, normal bowel movements reported Genitourinary: No new onset incontinence Musculoskeletal: Left knee pain Psychiatric: [Normal mood/affect] Neurological: [Denies weakness in extremities], [denies balance issues] Objective:: Physical Exam: General: Alert and oriented x3, no acute distress, pleasant and cooperative Lungs: Respirations even and unlabored, symmetrical chest expansion Eyes: PERRL Musculoskeletal: Flexion and extension of lumbar spine within normal limits Neurological: Speech clear, no gross sensory deficit Assessment:: Right hip pain, sacroiliitis, left knee pain Plan:: Patient continues to have significant improvement of her left knee symptoms following her injection. Patient will return to clinic in 3 months for reevaluation of symptoms and plan of care. Patient has been instructed to contact the clinic with any concerns before the next appointment. Dr. Castellon has reviewed this note and agrees with this plan of care. This note was dictated using voice recognition software and make contain errors or omissions. [facility] Disclaimer: The information contained in this section may have been updated after the patient was seen, as this information can be updated by other users. Medical History (Updated 09/26/23 @ 11:03 by Mitra Vieyra APRN) Abnormal ECG Angioedema Edema of left ankle Hypothyroid Influenza vaccine administered Left ankle pain Low back pain Menopause HERNAN (obstructive sleep apnea) Surgical History H/O lateral meniscus repair of left knee History of tubal ligation Hx of shoulder surgery Family History Father Hyperlipidemia Hypertension Mother Cancer BREAST Other No significant family history Social History Smoking Status: Former smoker years smoked: 4 how long ago did patient quit smokin YEARS alcohol intake: current substance use type: denies use current occupational status: retired Travel in the last 8 weeks: None household members: spouse marital status: number of children: 2
[2023-10-01 10:56] VITALS: BP 145/96; PULSE 114; RESP 19; O2SAT 95; BMI 26.9
== END ==
PROVIDERS: PCP Nurse Practitioner Family; Visit Provider Nurse Practitioner Family
DX: M25.551 Pain in right hip (principal); M46.1 Sacroiliitis, not elsewhere classified; M25.562 Pain in left knee
CPT/HCPCS: 99212; G0463

== ENCOUNTER 2023-11-01 15:21 | Outpatient (CLI) | payer BC, SELFPAY ==
[2023-11-01 17:52] LABS: Free T4 (Free Thyroxine) 1.17 ng/dl (0.78-2.19)
[2023-11-01 18:18] LABS: Thyroid Stimulating Hormone 0.02 uIU/mL (0.465-4.68)
== END 2023-11-01 23:59 ==
LOC: LAB.DROPOF 15:22
PROVIDERS: PCP Nurse Practitioner Family; Visit Provider Nurse Practitioner Family
DX: E03.9 Hypothyroidism, unspecified (principal); M10.9 Gout, unspecified
CPT/HCPCS: 84439; 84443; 84550; 87086

== ENCOUNTER 2023-12-06 07:35 | Outpatient (CLI) | payer BC, OTHER, SELFPAY ==
[2023-12-06 07:47] LABS: Microscopic, Urine URINE MICROSCOPIC (MICROSCOPIC)
[2023-12-06 08:13] LABS: Appearance,Urine CLEAR (Clear); Bilirubin,Urine Negative (Negative); Blood, Urine Negative (Negative); Color,Urine YELLOW (Yellow); Glucose,Urine (UA) Negative (Negative); Ketones,Urine Negative (Negative); Leukocyte Esterase,Urine 1+ (Negative); Nitrate,Urine Negative (Negative); PH,Urine 6.5 (5.0-8.5); Protein,Urine Negative (Negative); Specific Gravity, Urine 1.015 (1.005-1.030); Urobilinogen,Urine 0.2 EU/dl (0.2)
[2023-12-06 08:24] LABS: Bacteria,Urine Trace /lpf
[2023-12-06 08:40] LABS: Basophils % 0.5 % (0.1-2.0); Eosinophils # 0.2 K/mm3 (0.0-0.4); Eosinophils % 2.9 % (0.1-12.0); Hematocrit 48.8 % (37.0-47.0); Hemoglobin 16.1 g/dL (12.2-16.2); Lymphocytes # 2.3 K/mm3 (0.7-4.5); Lymphocytes % 32.7 % (10-50); Mean Corpuscular Volume 93.9 fl (81-99); Mean Platelet Volume 7.9 fl (7.4-10.4); Monocytes # 0.4 K/mm3 (0.1-1.0); Monocytes % 6.3 % (1.7-9.3); Neutrophils # 4.1 K/mm3 (1.8-7.8); Neutrophils % 57.6 % (37.0-80.0); Platelet Count 326 K/mm3 (142-424); Red Cell Distribution Width 13.1 % (11.5-17.5); White Blood Count 7.1 K/mm3 (4.8-10.8)
[2023-12-06 09:12] LABS: Erythrocyte Sedimentation Rate 6 mm/hr (0-30)
[2023-12-06 09:17] LABS: Chloride 106 mmol/L (98-107); Potassium 4.3 mmoL/L (3.5-5.1); Sodium 139 mmol/L (136-145)
[2023-12-06 09:20] LABS: Alanine Aminotransferase 27 U/L (12-78); Albumin Level 4.3 g/dl (3.5-5.0); Albumin/Globulin Ratio 1.7 (1.1-1.8); Alkaline Phosphatase 81 U/L (38-126); Anion Gap 9.3 mEq/L (5-15); Aspartate Amino Transferase 29 U/L (14-36); Bilirubin,Total 0.6 mg/dl (0.2-1.3); Blood Urea Nitrogen 12 mg/dl (7-17); Carbon Dioxide 28 mmol/L (22.0-30.0); Estimated Glomerular Filt Rate 85 ml/min (>60); GFR (African American) 103 ML/MIN (>60); Globulin 2.5 g/dL (1.3-3.2); Total Protein,Serum 6.8 g/dl (6.3-8.2)
[2023-12-06 09:21] LABS: Calcium 9.8 mg/dl (8.4-10.2); Glucose 115 mg/dl (74-100)
[2023-12-06 09:26] LABS: C-Reactive Protein 0.6 mg/L (0-4); Uric Acid 4.8 mg/dl (2.5-6.2)
[2023-12-07 07:51] LABS: HBsAg Screen Negative (Negative); HCV Ab Non Reactive (Non Reactive); Hep A Ab, IGM Negative (Negative); Hep B Core Ab, IgM Negative (Negative)
[2023-12-07 13:04] LABS: Anti-Cyclic Citrullinated Pept 6 units (0-19)
[2023-12-07 15:57] LABS: Cytoplasmic (C-ANCA) <1:20 titer (Neg:<1:20); Perinuclear (P-ANCA) <1:20 titer (Neg:<1:20)
[2023-12-08 23:30] LABS: QuantiFERON-TB Gold Plus Negative (Negative)
[2023-12-10 12:00] LABS: Antinuclear Antibodies, IFA Negative (.)
[2023-12-19 14:43] LABS: RF, IgA by EIA (RDL) < 7 U (<7); RF, IgG by EIA (RDL) < 7 U (<7); RF, IgM by EIA (RDL) < 7 U (<7)
== END 2023-12-06 23:59 ==
LOC: LAB 07:37
PROVIDERS: PCP Nurse Practitioner Family; Visit Provider Internal Medicine
DX: R53.83 Other fatigue (principal); M10.9 Gout, unspecified; M25.50 Pain in unspecified joint; Z79.899 Other long term (current) drug therapy
CPT/HCPCS: 36415; 80053; 80074; 81001; 84550; 85025; 85651; 86038; 86140; 86200; 86256; 86431; 86480; 87086

== ENCOUNTER 2023-12-17 16:00 | Outpatient (CLI) | payer BC, OTHER, SELFPAY ==
[2023-12-17 17:26] LABS: Free T4 (Free Thyroxine) 0.91 ng/dl (0.78-2.19)
[2023-12-17 17:38] LABS: Thyroid Stimulating Hormone 1.88 uIU/mL (0.465-4.68)
== END 2023-12-17 23:59 ==
LOC: LAB.DROPOF 16:01
PROVIDERS: PCP Nurse Practitioner Family; Visit Provider Nurse Practitioner Family
DX: E03.9 Hypothyroidism, unspecified (principal)
CPT/HCPCS: 84439; 84443

== ENCOUNTER 2024-05-08 16:38 | Outpatient (CLI) | payer BC, OTHER, SELFPAY ==
[2024-05-08 17:22] LABS: Basophils % 0.6 % (0.1-2.0); Eosinophils # 0.2 K/mm3 (0.0-0.4); Eosinophils % 2.2 % (0.1-12.0); Hematocrit 43.9 % (37.0-47.0); Hemoglobin 14.8 g/dL (12.2-16.2); Lymphocytes # 1.7 K/mm3 (0.7-4.5); Lymphocytes % 24.3 % (10-50); Mean Corpuscular HGB Conc 33.8 g/dL (31.8-35.4); Mean Corpuscular Hemoglobin 31.6 pg (27.0-31.2); Mean Corpuscular Volume 93.5 fl (81-99); Mean Platelet Volume 8.5 fl (7.4-10.4); Monocytes # 0.5 K/mm3 (0.1-1.0); Neutrophils # 4.6 K/mm3 (1.8-7.8); Neutrophils % 65.9 % (37.0-80.0); Platelet Count 293 K/mm3 (142-424); Red Cell Distribution Width 13.3 % (11.5-17.5); White Blood Count 6.9 K/mm3 (4.8-10.8)
[2024-05-08 17:42] LABS: Alanine Aminotransferase 27 U/L (12-78); Albumin Level 4.1 g/dl (3.5-5.0); Albumin/Globulin Ratio 1.6 (1.1-1.8); Alkaline Phosphatase 92 U/L (38-126); Anion Gap 11.3 mEq/L (5-15); Aspartate Amino Transferase 29 U/L (14-36); Bilirubin,Total 0.5 mg/dl (0.2-1.3); Blood Urea Nitrogen 21 mg/dl (7-17); Carbon Dioxide 26 mmol/L (22.0-30.0); Chloride 106 mmol/L (98-107); Estimated Glomerular Filt Rate 73 ml/min (>60); GFR (African American) 89 ML/MIN (>60); Globulin 2.6 g/dL (1.3-3.2); Glucose 79 mg/dl (74-100); Potassium 4.3 mmoL/L (3.5-5.1); Sodium 139 mmol/L (136-145); Total Protein,Serum 6.7 g/dl (6.3-8.2); Uric Acid 4.4 mg/dl (2.5-6.2)
[2024-05-08 17:55] LABS: Free T4 (Free Thyroxine) 1.37 ng/dl (0.78-2.19)
[2024-05-08 17:57] LABS: 25-OH Vitamin D, Total 39.2 ng/mL (30-100)
[2024-05-08 18:13] LABS: Thyroid Stimulating Hormone 1.73 uIU/mL (0.465-4.68)
[2024-05-08 18:32] LABS: Vitamin B12 497 pg/mL (239-931)
== END 2024-05-08 23:59 | disposition home or self-care (01) ==
LOC: LAB.DROPOF 16:39
PROVIDERS: PCP Nurse Practitioner Family; Visit Provider Nurse Practitioner Family
DX: M10.9 Gout, unspecified (principal); R53.83 Other fatigue; G47.33 Obstructive sleep apnea (adult) (pediatric)
CPT/HCPCS: 80050; 80053; 82306; 82607; 84439; 84443; 84550; 85025

== ENCOUNTER 2024-06-08 15:02 | Emergency (ER) | payer BC, OTHER, SELFPAY ==
[2024-06-08 15:05] VITALS: BP 104/48; PULSE 97; RESP 20; TEMP 36.6; O2SAT 92; BMI 27.3
--- NOTE | 2024-06-08 15:08 | HMH.EDGENADL ---
Discharge Plan Disposition Patient Disposition: Home, Self-Care Condition: Good Prescriptions Prescriptions: No Action losartan 25 mg tablet 25 mg PO DAILY Qty: 90 3RF diclofenac sodium 75 mg tablet,delayed release (DR/EC) PO allopurinol 100 mg tablet 100 mg PO DAILY Qty: 90 3RF levothyroxine 75 mcg tablet 75 mcg PO DAILY Qty: 90 3RF epinephrine 0.3 mg/0.3 mL auto-injector 0.3 mg IM Q5-15M PRN (Reason: .) Qty: 2 0RF Rx Instructions: do not exceed 3 doses per episode Referrals Follow up/Referrals: Yordy Kamara DO [Staff Physician] - See instructions Mitra Vieyra APRN [Primary Care Provider] - See instructions Activity Restrictions/Add. Instructions Additional Instructions/Restrictions: Please call in the morning to Dr. Kamara's office to make your appointment. Please mention that you were seen in the ER today. Return to ER for any worsening signs or symptoms including numbness tingling loss of motion extreme cold etc. Clinical Impressions Clinical Impression: Closed right radial fracture Qualifiers: Encounter type: initial encounter Radius location: distal Instructions Patient Instructions: DI for Distal Radius Fracture Print Language Print Language: Bolivian Discharge ED Provider: Wale Hoskins General Adult HPI <NAKITA Cano - Last Filed: 06/08/24 16:33> General Chief complaint: Extremity Injury, Upper Stated complaint: AO 8-24 fell and hurt right arm Time Seen by Provider: 06/08/24 15:07 History of Present Illness HPI narrative: Patient presents for evaluation of a right wrist injury after a fall. Patient was exiting bleachers at a football game and misstepped falling to the ground catching herself with her right arm. Patient suffered no other injury. She does however report significant amount of pain at the right wrist. Related Data Home Medications ?Medication ?Instructions ?Recorded ?Confirmed diclofenac sodium 75 mg mg PO 05/08/24 05/08/24 tablet,delayed release Previous Rx's ?Medication ?Instructions ?Recorded losartan 25 mg tablet 25 mg PO DAILY #90 tabs 08/16/23 allopurinol 100 mg tablet 100 mg PO DAILY #90 tabs 11/05/23 levothyroxine 75 mcg tablet 75 mcg PO DAILY THYROID #90 tabs 02/29/24 epinephrine 0.3 mg/0.3 mL 0.3 mg (0.3 mL) IM Q5-15M PRN . #2 05/28/24 injection, auto-injector ea Allergies Allergy/AdvReac Type Severity Reaction Status Date / Time lisinopril AdvReac Mild cough Uncoded 05/08/24 13:04 PFSH <NAKITA Cano - Last Filed: 06/08/24 16:33> PFS Disclaimer: The information contained in this section may have been updated after the patient was seen, as this information can be updated by other users. Medical History (Updated 06/08/24 @ 16:33 by NAKITA Cano) Acute bronchitis Viral respiratory illness Influenza vaccine administered Edema of left ankle Left ankle pain HERNAN (obstructive sleep apnea) Abnormal ECG Asymptomatic bradycardia Acetabular labrum tear Menopause Angioedema Right groin pain Right hip pain Low back pain Sacroiliitis Hypothyroid Surgical History Hx of shoulder surgery H/O lateral meniscus repair of left knee History of tubal ligation Family History Father Hyperlipidemia Hypertension Mother Cancer BREAST Other No significant family history Social History Smoking Status: Never smoker years smoked: 4 how long ago did patient quit smokin YEARS alcohol intake: current alcohol intake frequency: holidays/special occasions only substance use type: denies use current occupational status: retired Travel in the last 8 weeks: None household members: spouse marital status: number of children: 2 <NAKITA Cano - Last Filed: 06/08/24 16:33> ROS Obtained: Yes Systems reviewed
--- NOTE | 2024-06-08 15:10 | XR_ITS ---
PROCEDURE INFORMATION: Exam: XR Right Forearm Exam date and time: 06/08/2024 3:16 PM Age: 58 years old Clinical indication: Injury or trauma; Fall; Swelling (edema); Wrist; Right TECHNIQUE: Imaging protocol: Radiologic exam of the right forearm. Views: 2 views. COMPARISON: CR XR HAND RT 2V 06/08/2024 3:16 PM FINDINGS: Bones/joints: There is an acute nondisplaced fracture of the distal radius again demonstrated and better visualized on the images of the wrist and hand. There is also a nondisplaced transverse fracture base of the ulnar styloid process more apparent on this exam. Remainder of the osseous structures and joint surfaces of the left forearm are intact. Soft tissues: Unremarkable. IMPRESSION: Acute nondisplaced fracture distal radius and base of the ulnar styloid process.
--- NOTE | 2024-06-08 15:10 | XR_ITS ---
PROCEDURE INFORMATION: Exam: XR Right Wrist Exam date and time: 06/08/2024 3:16 PM Age: 58 years old Clinical indication: Injury or trauma; Fall; Swelling (edema); Wrist; Right TECHNIQUE: Imaging protocol: Radiologic exam of the right wrist. Views: 3 or more views. COMPARISON: CR XR WRIST RT MIN 3V 06/08/2024 3:16 PM FINDINGS: Bones/joints: Bones are somewhat demineralized. Acute vertically oriented intra-articular fracture of the distal radius extending for 2 cm in length. No significant displacement or malalignment. Remainder the visualized osseous structures and joint surfaces appear intact Soft tissues: Unremarkable. IMPRESSION: Acute nondisplaced intra-articular fracture distal radius.
--- NOTE | 2024-06-08 15:10 | XR_ITS ---
PROCEDURE INFORMATION: Exam: XR Right Hand Exam date and time: 06/08/2024 3:16 PM Age: 58 years old Clinical indication: Injury or trauma; Fall; Swelling (edema); Wrist; Right TECHNIQUE: Imaging protocol: Radiologic exam of the right hand. Views: 1 or 2 views. COMPARISON: CR XR FOREARM RT 2V 06/08/2024 3:16 PM FINDINGS: Bones/joints: Bones are somewhat demineralized. Intra-articular fracture of the distal radius. No obvious displacement or malalignment. No other fractures detected. Soft tissues: Unremarkable. IMPRESSION: Acute nondisplaced intra-articular fracture distal radius.
[2024-06-08 15:11] VITALS: BP 104/48; PULSE 95; O2SAT 90
--- NOTE | 2024-06-08 15:23 | PC.NURSE ---
RAD AT BS
--- NOTE | 2024-06-08 15:48 | CT_ITS ---
PROCEDURE INFORMATION: Exam: CT Right Upper Extremity Without Contrast, Wrist Exam date and time: 06/08/2024 4:15 PM Age: 58 years old Clinical indication: Injury or trauma; Fall; Swelling (edema); Wrist; Right; Additional info: Radius fracture with intra-articular involvement TECHNIQUE: Imaging protocol: Computed tomography of the right upper extremity without contrast. Exam focused on the wrist. Radiation optimization: All CT scans at this facility use at least one of these dose optimization techniques: automated exposure control; mA and/or kV adjustment per patient size (includes targeted exams where dose is matched to clinical indication); or iterative reconstruction. COMPARISON: CR XR WRIST RT MIN 3V 06/08/2024 3:16 PM FINDINGS: Bones/joints: There is an acute comminuted intra-articular fracture involving the distal radius with transverse and vertical components extending for 2 cm in length. There is mild comminution involving the dorsal cortex with few small bone fragments present. There is no significant displacement or malalignment at the fracture site. Radiocarpal joint angle is unremarkable. There is a incomplete transverse fracture involving the base of the ulnar styloid process which is nondisplaced. Remainder the visualized osseous structures are intact. There are mild degenerative changes along the proximal carpal row and 1st CMC joint. Soft tissues: Normal. IMPRESSION: 1. Acute comminuted intra-articular fracture distal radius. No significant malalignment. 2. Incomplete nondisplaced transverse fracture base of the ulnar styloid process.
--- NOTE | 2024-06-08 16:12 | PC.NURSE ---
pt TO RAD
[2024-06-08 16:17] VITALS: BP 110/63; PULSE 74; O2SAT 89
[2024-06-08 16:50] VITALS: BP 110/63; PULSE 81; RESP 18; TEMP 36.9; O2SAT 93
== END 2024-06-08 17:00 | disposition home or self-care (01) ==
PROVIDERS: Emergency Provider Emergency Medicine; PCP Nurse Practitioner Family
DX: S52.572A Other intraarticular fracture of lower end of left radius, initial encounter for closed fracture (principal); E03.9 Hypothyroidism, unspecified; G47.33 Obstructive sleep apnea (adult) (pediatric); W17.89XA Other fall from one level to another, initial encounter; Y92.39 Other specified sports and athletic area as the place of occurrence of the external cause
CPT/HCPCS: 29125; 73090; 73110; 73120; 73200; 99285

== ENCOUNTER 2024-06-13 09:16 | Outpatient (CLI) | payer BC, OTHER, SELFPAY ==
--- NOTE | 2024-06-13 09:45 | ECG_ITS ---
APPROVED REPORT Exam: Resting ECG HR:80 bpm ECG Measurements Heart Rate 80 AXES NV 147 P 29 QRSd 115 QRS -14 QT 368 T 47 QTc 404 Conclusion SINUS RHYTHM Late R wave progression - old finding Isolated Q in II.. old finding ABNORMAL ECG UNCONFIRMED REPORT Electronically signed by : Efrain Clark MD 06/13/2024 16:28:22
== END 2024-06-13 23:59 | disposition home or self-care (01) ==
LOC: PREOP 09:16
PROVIDERS: PCP Nurse Practitioner Family; Visit Provider Orthopaedic Surgery
DX: Z01.818 Encounter for other preprocedural examination (principal); S52.571A Other intraarticular fracture of lower end of right radius, initial encounter for closed fracture
CPT/HCPCS: 93005

== ENCOUNTER 2024-06-18 08:14 | Day surgery (SDC) | payer BC, OTHER, SELFPAY ==
[2024-06-13 09:19] VITALS: BMI 27.3
[2024-06-18] VITALS (10 sets, daily range): BP systolic 106–145; BP diastolic 52–87; PULSE 68–84; RESP 14–18; TEMP 36.3–43; O2SAT 93–98
--- NOTE | 2024-06-18 09:23 | P.PNANES_ITS ---
[facility] Disclaimer: The information contained in this section may have been updated after the patient was seen, as this information can be updated by other users. Medical History History of COVID-19 Hypertension Encounter for pre-operative cardiovascular clearance Gout Acute bronchitis Viral respiratory illness Influenza vaccine administered Edema of left ankle Left ankle pain HERNAN (obstructive sleep apnea) Abnormal ECG Asymptomatic bradycardia Acetabular labrum tear Menopause Angioedema Right groin pain Right hip pain Low back pain Sacroiliitis Hypothyroid Surgical History History of thumb surgery History of hip replacement Hx of shoulder surgery H/O lateral meniscus repair of left knee History of tubal ligation Family History Father Hyperlipidemia Hypertension Mother Cancer Social History Smoking Status: Never smoker years smoked: 4 how long ago did patient quit smokin YEARS alcohol intake: never substance use type: denies use current occupational status: retired Travel in the last 8 weeks: Outside the [facility] household members: spouse marital status: number of children: 2 [facility] Anesthesia Checklist Patient Identification Patient Identification: Arm Band and Verbal (Name & ) Structural Data Admitted From: Home Planned Operative Procedure/s: ORIF distal radius Consent for Planned Operative Procedure(s) Verified: Yes Verified Documents: Surgical Consent and History and Physical NPO Status Verified Time NPO: 00:00 Chart Verification Results Verified: CBC and BMP Additional verifications Anesthesia Reactions: No Hx Blood Transfusions: No Blood Transfusion Reaction: No Airway Assessment Mallampati Score:: Class II C-Spine Mobility Assessed: Yes TMJ Mobility Assessed: Yes Dentition: Good Dentition Neurological Assessment Level of Consciousness: Awake Hx Seizures: No Numbness or tingling in extremities: No Anesthesia Plan Anesthesia Risk discussed: Yes Anesthesia Plan: Verified ASA Class: II Anesthesia Type: General w/block
--- NOTE | 2024-06-18 11:44 | XR_ITS ---
FINAL REPORT CLINICAL HISTORY: ORIF WRIST 33 SECS FLUORO 0.95 MGY FINDINGS: FLUOROSCOPY LESS THAN 1 HOUR HISTORY: FINDINGS: Fluoroscopic guidance was provided for intraoperative instrumentation right breast. 2 spot films were obtained. 33 seconds of fluoroscopy time were used. Fluoroscopy dosage was 0.95 mGy. IMPRESSION: As above. Reviewed, Interpreted and Dictated by Taco Johnson III, MD Transcribed by Ayanna Ennis Authenticated and [facility]
--- NOTE | 2024-06-18 11:50 | P.OP_ITS ---
Date of procedure: 06/18/24 Pre-op Diagnosis:: Right distal radius fracture intra-articular 3+ part Post-op Diagnosis:: Same Procedure performed:: Open reduction internal fixation right distal radius fracture with 3+ part, intra-articular with volar plating Surgeon:: Yordy Kamara DO Director Of Patient Care(s):: Stefano GILLETTE INSIDE PLANT SUPERVISOR:: Yuniel Edwards Anesthesia: GETA Estimated blood loss (mL): 0 Operative findings:: See dictation Operative note:: Patient was identified preoperatively. Right arm marked with yes my initials. Underwent a block with anesthesia. Then taken the operating room placed upon operating bed with a radiolucent table. Right upper extremities prepped draped normal sterile fashion. Once prepped and draped final operative timeout performed to identify proper patient procedure and extremity. Everyone involved the case agreed. There is no counter indications beginning. Did receive preoperative antibiotics with Ancef. Marking pen was used to pratik plan incision over the volar wrist over the FCR tendon. Esmarch was used to exsanguinate the extremity and pneumatic tourniquet inflated 250 mmHg. Skin knife is used to incise through skin dissection was betzaida en down over the FCR tendon the FCR tendon sheath was opened and the FCR tendon was retracted radially throughout the procedure to protect the radial artery. The floor of the FCR was then open and dissection was taken down pronator quadratus was taken off the bone in L-type fashion and retracted. This identified the fracture site fracture hematoma present and evacuated. There was a comminuted fracture of the radial styloid and intra-articular split. This was reduced with help of the C arm and held plantarly with K wire. Volar plate was selected from the [employer] volar distal radius plate set. This was then placed in the the wrist and pinned into place to hold the length. X- ray was taken that show placement of the plate in the proper position. Once this was complete cortical screw was placed in the shaft and K wire placed distally to hold the plate in proper position. Once adequate position was obtained the distal locking screws were drilled and placed in a standard fashion. X-ray was utilized to assess proper trajectory and length of screws. Distal rows screws were then placed followed by additional locking screw in the shaft and cortical screw in the shaft. This gave good fixation of the fracture was stable under live viewing x-ray with flexion and extension. Irrigation of the wound performed. Deep layers closed with Vicryl stitch. Subcutaneous with Vicryl stitch. 3-0 nylon the skin. The volar splint was then placed. Patient waken anesthesia taken recovery in stable condition Condition: stable Disposition: PACU Complications:: None apparent
--- NOTE | 2024-06-18 12:13 | EXP.ANES.I ---
[facility] Anesthesia Record Part I Anesthesia Record I Intake, IV Amount: 900 Hydration: Adequate Estimated blood loss (mL): 5 Urine output (mL): 0 Blood Products used (#): none Blood Pressure: 125/87 SaO2: 93 Pulse Rate: 80 Airway Patency: Patent Respiratory Rate: 16 Temperature: 98.5 F Patient is:: Drowsy and Stable Stable to PACU at:: 12:10
[2024-06-19 07:19] VITALS: BP 118/57; PULSE 77; RESP 18; TEMP 36.3; O2SAT 95
--- NOTE | 2024-06-19 07:19 | P.PNANES_ITS ---
[facility] Anesthesia Record Part II Anesthesia Record Part II Discharge Time: 12:40 Destination: Surgical Day Care (OP Surgery) PACU nurse assessment reviewed?: Yes Patient Condition:: Good Anesthesia Complications:: None Swallowing reflex intact?: Yes Airway Patency: Patent Cyanosis?: No Blood Pressure: 118/57 SaO2: 95 Respiratory Rate: 18 Pulse Rate: 77 Temperature: 97.3 F Mental Status: Alert & Oriented Pain level:: 0 Nausea and/or vomitting:: None Intake, IV Amount: 0 Hydration: Adequate
== END 2024-06-18 13:10 | disposition home or self-care (01) ==
PROVIDERS: PCP Nurse Practitioner Family; Visit Provider Orthopaedic Surgery
PROC: (CPT 25609; principal; 2024-06-18 11:45)
DX: S52.571A Other intraarticular fracture of lower end of right radius, initial encounter for closed fracture (principal); W10.8XXA Fall (on) (from) other stairs and steps, initial encounter; Y92.39 Other specified sports and athletic area as the place of occurrence of the external cause
CPT/HCPCS: 25609; 73100; 76000; 96374; C1713; C1776; J0690; J1100; J2250; J2405; J3010; J7120

== ENCOUNTER 2024-07-03 08:55 | Outpatient (CLI) | payer BC, OTHER, SELFPAY ==
--- NOTE | 2024-07-03 09:16 | XR_ITS ---
FINAL REPORT CLINICAL HISTORY: ORIF wrist F/U COMPARISON: 06/08/2024 FINDINGS: RIGHT WRIST Three views demonstrate interval ORIF with placement of sideplate and screws in the distal radial metaphysis. There is a mildly displaced, intra-articular fracture extending to the radiocarpal joint. There is progressive osteopenia. There is new, overlying cast material in place. IMPRESSION: Interval fixation with bony reabsorption at the intra-articular component of radial fracture Reviewed, Interpreted and Dictated by Royer Suero MD Transcribed by Archana Nuno Authenticated and [facility]
== END 2024-07-03 23:59 | disposition home or self-care (01) ==
LOC: RAD 08:56
PROVIDERS: PCP Nurse Practitioner Family; Visit Provider Orthopaedic Surgery
DX: M25.531 Pain in right wrist (principal); S52.571A Other intraarticular fracture of lower end of right radius, initial encounter for closed fracture; S52.91XA Unspecified fracture of right forearm, initial encounter for closed fracture
CPT/HCPCS: 73110

== ENCOUNTER 2024-07-31 08:39 | Outpatient (CLI) | payer BC, OTHER, SELFPAY ==
--- NOTE | 2024-07-31 08:44 | XR_ITS ---
PROCEDURE INFORMATION: Exam: XR Right Wrist Exam date and time: 07/31/2024 8:46 AM Age: 59 years old Clinical indication: Injury or trauma; Other: FX followup; Other: FX f/u; Additional info: Right wrist orif TECHNIQUE: Imaging protocol: Radiologic exam of the right wrist. Views: 3 or more views. COMPARISON: CR XR WRIST RT MIN 3V 07/31/2024 8:46 AM FINDINGS: Bones/joints: Status post ORIF repair. Anatomic alignment of the fracture fragments Soft tissues: Normal. IMPRESSION: Postop ORIF changes. No complicating process
== END 2024-07-31 23:59 | disposition home or self-care (01) ==
LOC: RAD 08:41
PROVIDERS: PCP Nurse Practitioner Family; Visit Provider Orthopaedic Surgery
DX: M25.531 Pain in right wrist (principal); S62.101A Fracture of unspecified carpal bone, right wrist, initial encounter for closed fracture
CPT/HCPCS: 73110

== ENCOUNTER 2024-08-13 13:28 | Outpatient (CLI) | payer BC, OTHER, SELFPAY ==
[2024-08-13 18:12] LABS: Adenovirus,PCR Not Detected (NotDetected); Bordetella Pertussis Not Detected (NotDetected); Chlamydophila Pneumoniae, PCR Not Detected (NotDetected); Coronavirus 19, PCR Not Detected (NotDetected); Coronavirus 229E Not Detected (NotDetected); Coronavirus NL63 Not Detected (NotDetected); Coronavirus OC43 Not Detected (NotDetected); Coronovirus HKU1,PCR Not Detected (NotDetected); Human Metapneumovirus Not Detected (NotDetected); Influenza A, PCR Not Detected (NotDetected); Influenza AH1, 2009 Not Detected (NotDetected); Influenza AH1, PCR Not Detected (NotDetected); Influenza AH3,PCR Not Detected (NotDetected); Influenza B, PCR Not Detected (NotDetected); Mycoplasma Pneumoniae, PCR Not Detected (NotDetected); Parainfluenza 1, PCR Not Detected (NotDetected); Parainfluenza 2, PCR Not Detected (NotDetected); Parainfluenza 3, PCR Not Detected (NotDetected); Parainfluenza 4, PCR Not Detected (NotDetected); Respiratory Syncytial Virus Not Detected (NotDetected)
[2024-08-14 05:54] LABS: Rhinovirus/Enterovirus Detected (NotDetected)
== END 2024-08-13 23:59 | disposition home or self-care (01) ==
LOC: LAB.DROPOF 08-14 13:28
PROVIDERS: PCP Nurse Practitioner Family; Visit Provider Nurse Practitioner Family
DX: R05.9 Cough, unspecified (principal)
CPT/HCPCS: 87265; 87486; 87581; 87632; 87635

== ENCOUNTER 2024-08-21 08:47 | Outpatient (CLI) | payer BC, OTHER, SELFPAY ==
--- NOTE | 2024-08-21 08:50 | XR_ITS ---
FINAL REPORT CLINICAL HISTORY: .fx, surgery jun 18 COMPARISON: 07/31/2024 FINDINGS: RIGHT WRIST Three views demonstrate no acute fracture or dislocation. Postoperative changes are again identified with a orthopedic plate and screws present in the distal radius. A chronic ulnar styloid fracture is again noted as well. The overall appearance of the fractures are unchanged since the prior exam of July 31. The soft tissues are unremarkable. IMPRESSION: Postoperative changes of the right wrist, stable since the prior exam of July 31. Reviewed, Interpreted and Dictated by Taco Johnson III, MD Transcribed by Ayanna Ennis Authenticated and [facility]
== END 2024-08-21 23:59 | disposition home or self-care (01) ==
LOC: RAD 08:48
PROVIDERS: PCP Nurse Practitioner Family; Visit Provider Physician Assistant Surgical
DX: S52.91XA Unspecified fracture of right forearm, initial encounter for closed fracture (principal); S52.571A Other intraarticular fracture of lower end of right radius, initial encounter for closed fracture
CPT/HCPCS: 73110

== ENCOUNTER 2024-10-02 07:48 | Outpatient (CLI) | payer BC, OTHER, SELFPAY ==
--- NOTE | 2024-10-02 07:52 | MM_ITS ---
PROCEDURE INFORMATION: Exam: MG Bilateral Screening 3D Mammography Exam date and time: 10/02/2024 7:43 AM Age: 59 years old Clinical indication: Screening examination TECHNIQUE: Imaging protocol: Bilateral Screening tomosynthesis and 2D mammography including computer-aided detection (CAD) when performed. COMPARISON: 1. MG MM DIG SCREENING MAMM BI W/CAD 10/01/2023 8:13 AM 2. MG MM DIG SCREENING MAMM BI W/CAD 09/29/2022 8:19 AM FINDINGS: MAMMOGRAPHY: Breast composition: There are scattered areas of fibroglandular density. Mass: No suspicious masses. Architectural distortion: None. Calcifications: No suspicious calcifications. Asymmetric density: None. Skin thickening: None. Axillary adenopathy: None. IMPRESSION: No mammographic evidence of malignancy. Annual screening is recommended unless otherwise clinically indicated. ASSESSMENT: BI-RADS Category 1: Negative.
== END 2024-10-02 23:59 | disposition home or self-care (01) ==
LOC: RAD 07:49
PROVIDERS: PCP Nurse Practitioner Family; Visit Provider Obstetrics & Gynecology Gynecology
DX: Z12.31 Encounter for screening mammogram for malignant neoplasm of breast (principal)
CPT/HCPCS: 77063; 77067

== ENCOUNTER 2024-11-06 09:28 | Outpatient (CLI) | payer BC, OTHER, SELFPAY ==
[2024-11-06 12:08] LABS: Microscopic, Urine URINE MICROSCOPIC (MICROSCOPIC)
[2024-11-06 12:53] LABS: Basophils % 0.4 % (0.1-2.0); Eosinophils # 0.1 K/mm3 (0.0-0.4); Eosinophils % 1.9 % (0.1-12.0); Hematocrit 46.1 % (37.0-47.0); Hemoglobin 15.2 g/dL (12.2-16.2); Lymphocytes # 1.8 K/mm3 (0.7-4.5); Lymphocytes % 26.6 % (10-50); Mean Corpuscular Hemoglobin 30.4 pg (27.0-31.2); Mean Corpuscular Volume 92.2 fl (81-99); Mean Platelet Volume 10.3 fl (7.4-10.4); Monocytes # 0.5 K/mm3 (0.1-1.0); Monocytes % 7.7 % (1.7-9.3); Neutrophils # 4.2 K/mm3 (1.8-7.8); Neutrophils % 63.1 % (37.0-80.0); Platelet Count 281 K/mm3 (142-424); Red Cell Distribution Width 12.5 % (11.5-17.5); White Blood Count 6.7 K/mm3 (4.8-10.8)
[2024-11-06 13:13] LABS: Appearance,Urine CLEAR (Clear); Bilirubin,Urine Negative (Negative); Blood, Urine Negative (Negative); Color,Urine YELLOW (Yellow); Glucose,Urine (UA) Negative (Negative); Ketones,Urine Negative (Negative); Leukocyte Esterase,Urine TRACE (Negative); Nitrate,Urine Negative (Negative); PH,Urine 7.5 (5.0-8.5); Protein,Urine Negative (Negative); Urobilinogen,Urine 0.2 EU/dl (0.2)
[2024-11-06 13:22] LABS: Alanine Aminotransferase 45 U/L (12-78); Albumin Level 4.9 g/dl (3.5-5.0); Albumin/Globulin Ratio 2.1 (1.1-1.8); Alkaline Phosphatase 81 U/L (38-126); Anion Gap 19.1 mEq/L (5-15); Aspartate Amino Transferase 42 U/L (14-36); Bilirubin,Total 0.7 mg/dl (0.2-1.3); Blood Urea Nitrogen 21 mg/dl (7-17); Calcium 9.8 mg/dl (8.4-10.2); Carbon Dioxide 24 mmol/L (22.0-30.0); Chloride 102 mmol/L (98-107); Chol/HDL Ratio 4.2 (1-3.5); Cholesterol 211 mg/dl (140-200); Estimated Glomerular Filt Rate 73 ml/min (>60); GFR (African American) 88 ML/MIN (>60); Globulin 2.3 g/dL (1.3-3.2); Glucose 99 mg/dl (74-100); HDL Cholesterol 50 mg/dl (40-60); Potassium 5.1 mmoL/L (3.5-5.1); Sodium 140 mmol/L (136-145); Total Protein,Serum 7.2 g/dl (6.3-8.2); Triglycerides 165 mg/dl (30-150); Uric Acid 5.2 mg/dl (2.5-6.2); VLDL Cholesterol 33 mg/dL (0-40)
[2024-11-06 13:33] LABS: Direct LDL Cholesterol 122.47 mg/dL (100-129)
[2024-11-06 13:38] LABS: Free T4 (Free Thyroxine) 1.42 ng/dl (0.78-2.19)
[2024-11-06 13:40] LABS: 25-OH Vitamin D, Total 40.3 ng/mL (30-100)
[2024-11-06 13:46] LABS: Transitional Epi Cells,Urine OCC #/lpf (0-3); WBC,Urine Occasional #/hpf (0-3)
[2024-11-06 13:51] LABS: Hemoglobin A1C 5.6 % (4.0-6.0)
[2024-11-06 13:53] LABS: Thyroid Stimulating Hormone 2.15 uIU/mL (0.465-4.68)
[2024-11-06 14:12] LABS: Iron 179 ug/dL (37-170); Vitamin B12 933 pg/mL (239-931)
[2024-11-06 14:21] LABS: Total Iron Binding Capacity 324 ug/dL (265-497)
[2024-11-06 14:48] LABS: Ferritin 122 ng/ml (11.1-264)
[2024-11-06 16:50] LABS: HIV Combo NEGATIVE (Negative)
== END 2024-11-06 23:59 | disposition home or self-care (01) ==
LOC: LAB.DROPOF 14:50
PROVIDERS: PCP Nurse Practitioner Family; Visit Provider Nurse Practitioner Family
DX: E03.9 Hypothyroidism, unspecified (principal); I10 Essential (primary) hypertension; M10.9 Gout, unspecified; E53.8 Deficiency of other specified B group vitamins; G47.33 Obstructive sleep apnea (adult) (pediatric); R53.83 Other fatigue; Z13.220 Encounter for screening for lipoid disorders; Z13.1 Encounter for screening for diabetes mellitus; Z11.4 Encounter for screening for human immunodeficiency virus [HIV]
CPT/HCPCS: 80053; 80061; 81001; 82306; 82607; 82728; 83036; 83540; 83550; 84156; 84439; 84443; 84550; 85025; 87086; 87389

== ENCOUNTER 2024-12-03 15:18 | Outpatient (CLI) | payer BC, OTHER, SELFPAY ==
[2024-12-03 16:56] LABS: Microscopic, Urine URINE MICROSCOPIC (MICROSCOPIC)
[2024-12-03 17:36] LABS: Bilirubin,Urine Negative (Negative); Blood, Urine TRACE-I (Negative); Color,Urine YELLOW (Yellow); Glucose,Urine (UA) Negative (Negative); Ketones,Urine Negative (Negative); Leukocyte Esterase,Urine 1+ (Negative); Nitrate,Urine POSITIVE (Negative); Protein,Urine 2+ (Negative); Specific Gravity, Urine 1.015 (1.005-1.030); Urobilinogen,Urine 0.2 EU/dl (0.2)
[2024-12-03 18:26] LABS: Appearance,Urine Slightly Cloudy (Clear)
[2024-12-03 21:58] LABS: Bacteria,Urine 3+ /lpf; WBC,Urine 20-50 #/hpf (0-3)
== END 2024-12-03 23:59 | disposition home or self-care (01) ==
LOC: LAB.DROPOF 12-04 10:06
PROVIDERS: PCP Nurse Practitioner Family; Visit Provider Nurse Practitioner Family
DX: N39.0 Urinary tract infection, site not specified (principal); R35.0 Frequency of micturition; R39.15 Urgency of urination
CPT/HCPCS: 81001; 87086; 87088; 87186

== ENCOUNTER 2024-12-15 13:47 | Outpatient (CLI) | payer BC, OTHER, SELFPAY ==
[2024-12-15 19:05] LABS: Microscopic, Urine URINE MICROSCOPIC (MICROSCOPIC)
[2024-12-15 20:30] LABS: Appearance,Urine CLEAR (Clear); Bilirubin,Urine Negative (Negative); Blood, Urine Negative (Negative); Color,Urine YELLOW (Yellow); Glucose,Urine (UA) Negative (Negative); Ketones,Urine Negative (Negative); Leukocyte Esterase,Urine 2+ (Negative); Nitrate,Urine POSITIVE (Negative); Protein,Urine Negative (Negative); Specific Gravity, Urine <= 1.005 (1.005-1.030); Urobilinogen,Urine 0.2 EU/dl (0.2)
[2024-12-15 22:48] LABS: Bacteria,Urine 3+ /lpf
== END 2024-12-15 23:59 | disposition home or self-care (01) ==
LOC: LAB.DROPOF 12-17 12:35
PROVIDERS: PCP Nurse Practitioner Family; Visit Provider Nurse Practitioner Family
DX: N39.0 Urinary tract infection, site not specified (principal)
CPT/HCPCS: 81001; 87086; 87088; 87186

== ENCOUNTER 2024-12-22 16:13 | Outpatient (CLI) | payer BC, SELFPAY ==
[2024-12-22 16:06] LABS: Microscopic, Urine URINE MICROSCOPIC (MICROSCOPIC)
[2024-12-22 21:12] LABS: Appearance,Urine Clear (Clear); Blood, Urine Negative (Negative); Color,Urine Yellow (Yellow); Glucose,Urine (UA) Negative (Negative); Ketones,Urine Negative (Negative); PH,Urine 8.5 (5.0-8.5); Protein,Urine Negative (Negative)
[2024-12-22 21:13] LABS: Bacteria,Urine Trace /lpf; Bilirubin,Urine Negative (Negative); Leukocyte Esterase,Urine Trace (Negative); Nitrate,Urine Negative (Negative); Urobilinogen,Urine 0.2 EU/dl (0.2)
== END 2024-12-22 23:59 | disposition home or self-care (01) ==
LOC: LAB.DROPOF 16:13
PROVIDERS: PCP Nurse Practitioner Family; Visit Provider Nurse Practitioner Family
DX: N39.0 Urinary tract infection, site not specified (principal)
CPT/HCPCS: 81001; 87086

== ENCOUNTER 2024-12-25 10:00 | Outpatient (CLI) | payer BC, SELFPAY ==
[2024-12-25 09:38] LABS: Microscopic, Urine URINE MICROSCOPIC (MICROSCOPIC)
[2024-12-25 10:53] LABS: Appearance,Urine Clear (Clear); Color,Urine Yellow (Yellow)
[2024-12-25 10:54] LABS: Bilirubin,Urine Negative (Negative); Blood, Urine Trace (Negative); Glucose,Urine (UA) Negative (Negative); Ketones,Urine Negative (Negative); Leukocyte Esterase,Urine 3+ (Negative); Nitrate,Urine POSITIVE (Negative); Protein,Urine Negative (Negative); Specific Gravity, Urine 1.015 (1.005-1.030); Urobilinogen,Urine 0.2 EU/dl (0.2)
[2024-12-25 10:56] LABS: RBC,Urine Occasional #/hpf (0-3); WBC,Urine 20-50 #/hpf (0-3)
[2024-12-25 10:57] LABS: Bacteria,Urine 2+ /lpf
== END 2024-12-25 23:59 | disposition home or self-care (01) ==
LOC: LAB.DROPOF 10:00
PROVIDERS: PCP Nurse Practitioner Family; Visit Provider Nurse Practitioner Family
DX: N39.0 Urinary tract infection, site not specified (principal); B96.20 Unspecified Escherichia coli [E. coli] as the cause of diseases classified elsewhere
CPT/HCPCS: 81001; 87086; 87088; 87186

== ENCOUNTER 2024-12-31 09:43 | Outpatient (CLI) | payer BC, SELFPAY ==
[2024-12-31 12:29] LABS: Microscopic, Urine URINE MICROSCOPIC (MICROSCOPIC)
[2024-12-31 12:53] LABS: Appearance,Urine CLEAR (Clear); Bilirubin,Urine Negative (Negative); Blood, Urine Negative (Negative); Color,Urine YELLOW (Yellow); Glucose,Urine (UA) Negative (Negative); Ketones,Urine Negative (Negative); Leukocyte Esterase,Urine SMALL (Negative); Nitrate,Urine Negative (Negative); PH,Urine 6.5 (5.0-8.5); Protein,Urine Negative (Negative); Urobilinogen,Urine 0.2 EU/dl (0.2)
[2024-12-31 13:00] LABS: Squamous Epithelial Cell,Urine Occasional #/hpf (0-5)
[2024-12-31 13:04] LABS: Bacteria,Urine Trace /lpf; Specific Gravity, Urine <= 1.005 (1.005-1.030)
== END 2024-12-31 23:59 | disposition home or self-care (01) ==
LOC: LAB.DROPOF 01-01 10:32
PROVIDERS: PCP Nurse Practitioner Family; Visit Provider Nurse Practitioner Family
DX: N39.0 Urinary tract infection, site not specified (principal)
CPT/HCPCS: 81001; 87086; 87088; 87186

== ENCOUNTER 2025-08-26 09:33 | Outpatient (CLI) | payer BC, SELFPAY ==
--- OUTSIDE RECORDS SUMMARY | 2025-08-26 09:40 | XMS_ITS | Patient Health Record ---
[facility] Address [address] [facility] [address] [place] [id number] Care Team Providers Care Quality Project Manager Name Role Phone Marvin Obregon Primary Care Provider Allergies No Known Allergies Reason For Referral No Information Medications Medication SIG (Take, Route, Frequency, Duration) Notes Start Date End Date Status CPAP SUPPLIES DIRECTED *Please review for potential replacement for e-prescription and drug interaction check* 11/07/2021 Active EpiPen 2-Migel 0.3 MG/0.3ML 1 dose intramuscularly once as needed 06/12/2022 Active CareTouch CPAP & BIPAP Hose 1 DIRECTED *Please review and pick correct strength-formulat ion from Medispan options. If intended option is not shown, discontinue and re-order from Quick Search* 06/12/2022 Active Levothyroxine Sodium 75 MCG 1 tab(s) orally once a day; Duration: 90 days Active Flonase Allergy Relief 50 MCG/ACT 1 spray(s) in each nostril once a day Active Immunizations Vaccine Route Administration Date Status Comme nts Tetanus Tdap-Adacel (over 7yrs) IM Intramuscular 11/24/2015 Administered Fluzone Quad (6months&older) IM Intramuscular 08/21/2017 Administered Fluzone Quad (6months&older) IM Intramuscular 08/01/2018 Administered Given by MP Fluzone Quad (6months&older) IM Intramuscular 08/04/2019 Administered Fluzone Quad (6months&older) IM Intramuscular 06/18/2020 Administered Fluzone Quad (6months&older) IM Intramuscular 11/07/2021 Administered Fluzone Quad (6months&older) IM Intramuscular 08/29/2022 Administered Fluzone Intradermal Quad private(18-64yrs) ID Intradermal 07/13/2016 Administered COVID 19 Pfizer Unknown 12/26/2020 Administered COVID 19 Pfizer Unknown 01/16/2021 Administered Problems Problem Type SNOMED Code ICD Code Onset Dates Problem Status W/U Status Risk Notes Problem Gastroesophageal reflux disease (984412241) GERD (gastroesophag eal reflux disease) (530.81) Active confirmed Problem Sinusitis (31355531) Sinusitis (J32.9) Active confirmed Problem Obstructive sleep apnea syndrome (disorder) (89633918) Obstructive sleep apnea (adult) (pediatric) (G47.33) Active confirmed Problem Hypothyroidism (84318741) Hypothyroidism , unspecified type (E03.9) Active confirmed Problem Arthritis of right hip (6858664563055611) Arthritis of right hip (M16.11) Active confirmed Plan Of Treatment No Information Insurance Providers Payer Name Payer Address Payer Phone Subscriber Number Group Number Insured Name Patient Relationship to Insured Coverage Start Date Coverage End Date [employer] [address] [place] [address] [id number] DOM MCELROY Self - patient is the insured Medical (General) History Medical History History ICD Code Esophageal reflux Hypothyroidism sleep apnea 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 Mccarthy Surgical History Surgery Date(Month/Year) tubal ligation Surgery on her R shoulder sugery on thumb L hand colonoscopy (normal) 03/2014 L Rotator cuff surgery 01/29/2015 L Knee Surgery - Scope 11/27/2019 Hospitalization History Reason Date(Month/Year) Pneumonia
--- OUTSIDE RECORDS SUMMARY | 2025-08-26 09:40 | XMS_ITS | Clinical Summary ---
Author Organization [facility] Address [address] [place] [id number] Phone [email or web address] Providers Care Awning Maker And Installer Name Role Phone Unavailable Primary Care Provider Unavailabl e Medications No known medications Active Problems Problem Noted Date Diagnosed Date Anxiety state 04/19/2011 Overview (03/13/2018): Other synovitis and tenosynovitis 08/12/2008 Overview (03/13/2018): Social History Tobacco Use Types Packs/Day Years Used Date Smoking Tobacco: Never Assessed Intimate Partner Violence Answer Date R ecorded Insults You Not on file 01/26/2021 Threatens You Not on file 01/26/2021 Screams at You Not on file 01/26/2021 Physically Hurt Not on file 01/26/2021 Intimate Partner Violence Score Not on file 01/26/2021 Stress Answer Date Recorded Stress in your Life Not on file 08/18/2024 Dealing with Stress 3 08/18/2024 Comments Unknown Sex and Gender Information Value Date Recorded Sex Assigned at Not on file Legal Sex Female 9:45 AM CDT Gender Identity Not on file Sexual Orientation Not on file Last Filed Vital Signs Vital Sign Reading Time Taken Comments Blood Pressure 144/84 07/28/2015 11:45 AM CDT Pulse 95 08/25/2021 2:43 PM EST Temperature 37.3 C (99.2 F) 08/25/2021 2:43 PM EST Respiratory Rate - - Oxygen Saturation 95% 08/25/2021 2:43 PM EST Inhaled Oxygen Concentration - - Weight 81.6 kg (180 lb) 06/11/2014 8:27 AM CDT Height 172.7 cm (5' 8 ) 06/11/2014 8:27 AM CDT Body Mass Index 27.37 06/11/2014 8:27 AM CDT Plan of Treatment Health Maintenance Due Date Last Done Comments CT Colonography 1963 Cervical Cancer Screening Combo 1963 Colonoscopy 1963 Colorectal Cancer Screening Combo 1963 DNA Cologuard 1963 Dental Cleaning/Exam 1963 FIT or FOBT Test 1963 HIV Screening 1963 HPV only / HPV + Pap 1963 Hepatitis C Screening 1963 Pap only testing 1963 Sigmoidoscopy 1963 Annual Preventive Exam 1981 Hep B Infection Screening - Triple Screen 1981 Tetanus Diphtheria and Pertu ssis Immunization (1 - Tdap) 1982 Pneumococcal: 50+ Years (1 o f 1 - PCV) 2013 Zoster Immunization (1 of 2) 2013 Breast Cancer Screening 07/27/2017 07/27/2015 Covid-19 Immunization (1 - 2 025-26 season) 2025 Influenza Immunization (#1) 2025 HIB Immunization Aged Out No longer e ligible based on patient's age to complete this topic HPV Immunization Aged Out No longer e ligible based on patient's age to complete this topic Hepatitis A Immunization Aged Out No longer eligible based on patient's age to complete this topic Hepatitis B Immunization Aged Out No longer eligible based on patient's age to complete this topic Polio Immunization Aged Out No longer eligible based on patient's age to complete this topic Insurance OPT OUT NO COPAY NB
--- OUTSIDE RECORDS SUMMARY | 2025-08-26 09:40 | XMS_ITS | Data Portability ---
Author Organization [facility] DAVID Pizano ADMIN Address [address] [place] [id number] Care Team Providers Care Fisheries Management Biologist Name Role Phone AMAURY MACEDO Primary Care Provider [phone] Assessment Encounter Date Assessment Date Assessment LastModified by Organization Details LastModified Time 01/13/2025 01/13/2025 ASSESSMENT: Dom Diallo is a 59-year-old female with recurrent urinary tract infections since November. PLAN: 1. Prescribed cefdinir 300 mg twice a day for ten days based on the sensitivity report. 2. Ordered an ultrasound of the kidneys to rule out any abscess or other complications. 3. Advised the patient to follow up in three to four weeks to ensure resolution of the infection. 4. Planned to switch the patient to methenamine (Hiprex) twice a day for one month after completing the cefdinir course to prevent recurrence. 5. Sent urine for PCR testing to confirm the current infection and adjust treatment if necessary. [email or web address] Not available 01/13/2025 13:22:49 02/05/2025 02/05/2025 ASSESSMENT: Dom Diallo is a 59-year-old female with a history of urinary tract infections, currently stable on methenamine. PLAN: 1. Dom will complete the two-month course of methenamine. 2. A follow-up appointment is scheduled for one year as a placeholder. 3. If Dom experiences any urinary symptoms or UTIs, she will call and provide a urine sample for culture before starting empirical treatment. [email or web address] Not available 02/05/2025 08:58:42 Plan of Treatment Reminders Order Date Submit Date Provider Last Modified By Organization Details Last Modified Time Details Appointments OV EST 15 2025 08:30A M HAKAN OVIEDO MD Not available Not available Not available Lab urinalysi s, dipstick 2024 025 [email or web address] [facility], [address], [place], [address], 02/05/2025 13:32:58 urinalysi s, dipstick 2024 025 [email or web address] [facility], [address], [place], [address], 01/13/2025 13:23:09 Referral None recorded. Procedures None recorded. Surgeries None recorded. Imaging US, renal 2024 025 [email or web address] (Centralized Scheduling), [address], [place], [address], 02/17/2025 11:08:33 Medication Orders cefdinir 300 mg capsule 2024 025 [facility], [address] [place], [address], 01/13/2025 13:23:18 Hiprex 1 gram tablet 2024 025 [facility], [address] [place], [address], 01/13/2025 13:23:17 Patient TargetsNo targets recorded. Patient InstructionsNo instructions recorded. Reason for Referral None Reported. Results Created Date Observation Date Name Description Value Unit Range Abnormal Flag Note LastModifiedBy Organization Detail LastModifiedTime 01/14/2001/13/2025 urina lysis , dipst ick Leukocytes (reference range) trace Not Available [facility] [address], [place], [address], 01/13/2025 13:04:15 01/14/20 25 01/13/2025 urina lysis , dipst ick Nitrite (reference range:) positi ve Not Available [place] [address] [facility], [place], [address], 01/13/2025 13:04:15 01/14/20 25 01/13/2025 urina lysis , dipst ick Protein (reference range) trace Not Available [facility] [place] [address] [facility], [place], [address], 01/13/2025 13:04:15 01/14/20 25 01/13/2025 urina lysis , dipst ick pH (reference range 5-8.5) 7.0 Not Available [facility] [place] [address] [facility], [place], [address], 01/13/2025 13:04:15 01/14/20 25 01/13/2025 urina lysis , dipst ick Blood (reference range:) negati ve Not Available [place] [address] [facility] [address], [place], [address], 01/13/2025 13:04:15 01/14/20 25 01/13/2025 urina lysis , dipst ick Specific Speedwell (reference range) 1.000 Not Available [place] [address] [facility] [address], [place], [address], 01/13/2025 13:04:15 01/14/20 25 01/13/2025 urina lysis , dipst ick Ketone (reference range) trace Not Available [place] [address] [facility] [address], [place], [address], 01/13/2025 13:04:15 01/14/20 25 01/13/2025 urina lysis , dipst ick Bilirubin (reference range) negati ve Not Available [place] [address] [facility] [address], [place], [address], 01/13/2025 13:04:15 01/14/20 25 01/13/2025 urina lysis , dipst ick Glucose (reference range) negati ve Not Available [place] [address] [facility] [address], [place], [address], 01/13/2025 13:04:15 01/14/20 25 01/13/2025 urina lysis , dipst ick Color (reference range: yellow-brown ) Yellow Not Available [place] [address] [facility] [address], [place], [address], 01/13/2025 13:04:15 02/06/20 25 02/05/2025 urina lysis , dipst ick Leukocytes (reference range) negati ve Not Available [place] [address] [facility] [address], [place], [address], 02/05/2025 08:50:57 02/06/20 25 02/05/2025 urina lysis , dipst ick Nitrite (reference range:) negati ve Not Available [place] [address] [facility] [address], [place], [address], 02/05/2025 08:50:57 02/06/20 25 02/05/2025 urina lysis , dipst ick Urobilinogen (reference range) 0.2 Not Available [place] [address] [facility] [address], [place], [address], 02/05/2025 08:50:57 02/06/20 25 02/05/2025 urina lysis , dipst ick Protein (reference range) negati ve Not Available [place] [address] [facility] 100, [place], [address], 02/05/2025 08:50:57 02/06/20 25 02/05/2025 urina lysis , dipst ick pH (reference range 5-8.5) 6.0 Not Available [facility] [place] [address] [facility] [address], [place], [address], 02/05/2025 08:50:57 02/06/20 25 02/05/2025 urina lysis , dipst ick Blood (reference range:) negati ve Not Available [place] [address] [facility] [address], [place], [address], 02/05/2025 08:50:57 02/06/20 25 02/05/2025 urina lysis , dipst ick Specific Speedwell (reference range) 1.015 Not Available [place] [address] [facility] [address], [place], [address], 02/05/2025 08:50:57 02/06/20 25 02/05/2025 urina lysis , dipst ick Ketone (reference range) negati ve Not Available [place] [address] [facility] [address], [place], [address], 02/05/2025 08:50:57 02/06/20 25 02/05/2025 urina lysis , dipst ick Bilirubin (reference range) negati ve Not Available [place] [address] [facility] [address], [place], [address], 02/05/2025 08:50:57 02/06/20 25 02/05/2025 urina lysis , dipst ick Glucose (reference range) negati ve Not Available [place] [address] [facility] 100, [place], [address], 02/05/2025 08:50:57 02/06/20 25 02/05/2025 urina lysis , dipst ick Color (reference range: yellow-brown ) Yellow Not Available [facility] [address] [facility] [address], [place], [address], 02/05/2025 08:50:57 01/29/20 25 01/28/2025 renal ,bila teral US [facility] [address] [place] [address] Phone: Fax: Name: DOM RUTHERFORD Exam Date: 025 : 1964 Age 59 years Gender : F Access ion: [id number] Physic pina: HAKAN OVIEDO Facili ty: [facility] Facili ty HSV: Outpat ient Exam: RENAL, BILATE RAL US Bilate ral renal ultras ound. Histor y urinar y tract infect ion unspec ified. FINDIN GS: The right kidney measur es 10.1 x 4.7 x 4.7 cm. The left kidney measur es 10.9 x 5.1 x 4.9 cm. No hydron ephros is. No solid or cystic renal mass. Blood flow demons trated kidney s bilate rally. IMPRES [place]: Normal renal ultras ound. Electr onical ly signed by: Autumn jaeger MD 2024 04:57 PM EDT RP Workst ation: [id number] Dictat ed By: Autumn Mtz Transc ribed By: Transc ribed On: 025 10:03 AM Electr onical ly signed by: Autumn Mtz 025 Thank you for referr ing DOM RUTHERFORD to [facility]. Legall y authen ticate d by MARTHA Yarbrough 2024-0 01-28 10:03: 00 CC'ed Logic: Orderi ng Provid er: PREET MCCLENDON Attend ing Provid er: PREET MCCLENDON Referr ing Provid er: PREET MCCLENDON Admitt ing Provid er: PREET MCCLENDON [email or web address] - Physical Therapy [address] [facility], [place], [address], 01/29/2025 10:00:28 Result Notes None recorded. Problems Name Problem SNOMED Code Status Onset Date Resolution Date Notes Provider Name and Address Organization Details Recorded Time Recurrent urinary tract infection 438246696 Active 025 Mayte beltrán [facility] [place] 09:40:19 Problem Notes None recorded. Procedures Surgical History Date Name Laterality Status Provider Name and Address Organization Details Recorded Time thumb surgery completed Mayte [facility] [place] 01/12/2025 09:42:59 total replacement [facility] hip completed [facility] [place] 01/12/2025 09:43:25 operative procedure on shoulder completed [facility] [place] 01/12/2025 09:43:51 arthroscopy of knee with lateral meniscus repair completed [facility] [place] 01/12/2025 09:44:13 ligation of fallopian tube completed [facility] [place] 01/12/2025 09:44:24 Imaging Results None recorded. Procedure Notes None recorded. Medical Equipment None Reported. Allergies Allergen ID Allergen Name Allergen Category Reaction Reaction Severity Criticality Documentation Date Start Date Code Code System Note Provider Name and Address Organization Details Recorded Time 951626 lisinopri l medicatio n Not available Not available Not available 01/13/2025 98580 RxNorm Rosa beltrán [facility] [place] 12:52:14 Medications Name Sig Start Date Stop Date Status Note LastModified by Organization Details LastModified Time valacyclovi r 1 gram tablet TAKE 2 TABLETS BY MOUTH TWICE DAILY FOR 2 DAYS 01/12 completed Not Available Not Available Not Available hydrocodone 5 mg-acetamin ophen 325 mg tablet TAKE ONE TABLET BY MOUTH EVERY 4 HOURS NEEDED FOR POST OP PAIN MAY CAUSE DROWSINES S 01/12 completed Not Available Not Available Not Available allopurinol 100 mg tablet Take 1 tablet every day by oral route. active Not Available Not Available No t Available sulfamethox azole 800 mg-trimetho prim 160 mg tablet TAKE 1 TABLET BY MOUTH TWICE DAILY FOR 7 DAYS 01/12 completed Not Available Not Available Not Available methenamine hippurate 1 gram tablet TAKE 1 TABLET BY MOUTH TWICE DAILY active Not Available Not Available No t Available cephalexin 500 mg capsule TAKE 1 CAPSULE BY MOUTH TWICE DAILY FOR 7 DAYS 01/12 completed Not Available Not Available Not Available losartan 25 mg tablet TAKE 1 TABLET BY MOUTH ONCE DAILY active Not Available Not Available No t Available Synthroid 75 mcg tablet Take 1 tablet every day by oral route. active Not Available Not Available No t Available diclofenac sodium 75 mg tablet,lynn yed release Take 1 tablet twice a day by oral route. active Not Available Not Available No t Available epinephrine 0.3 mg/0.3 mL injection, auto-inject or Take by injection route. active Not Available Not Available No t Available cefdinir 300 mg capsule TAKE 1 CAPSULE BY MOUTH EVERY 12 HOURS FOR 10 DAYS active Not Available Not Available No t Available oxycodone 5 mg tablet TAKE 1 TABLET BY MOUTH EVERY 6 HOURS NEEDED FOR PAIN 01/12 completed Not Available Not Available Not Available Vitals Date Recorded Body height Body mass index (BMI) Body weight Oxygen saturation Oxygen saturation in Arterial blood by Pulse oximetry Heart rate Systolic And Diastolic Provider Name and Address Organization Details Last Updated DateTime 5 172.72 cm 28.4 kg/m2 03205.7 7 g 98 % 98 % 75 /min 146/76 mm[Hg] Rosa Noel [facility] [place] 5 13:04:01 Date Recorded Body height Body mass index (BMI) Body weight Body temperature Oxygen saturation Oxygen saturation in Arterial blood by Pulse oximetry Heart rate Systolic And Diastolic Provider Name and Address Organization Details Last Updated DateTime 5 172.72 cm 28 kg/m2 60288.7 1 g 98 [degF] 98 % 98 % 70 /min 122/72 mm[Hg] Juana English [facility] [place] 5 08:50:20 Social History None recorded. Functional Status None recorded. Mental Status None recorded. Family History Relationship Description Onset Age of this Age Resolved Age Notes LastModified by Organization Details LastModified Time Mother Malignant neoplastic disease horacio lopez Not available 01/13/2025 13:44:02 Brother Parkinson's disease horacio lopez Not available 01/13/2025 13:44:12 Medical History No medical history recorded. Gynecological HistoryNo gynecological history recorded. Obstetrics History GPAL:G 0 P 0 0 0 0 Past Encounters Encounter ID Performer Location Encounter Start Date Encounter Closed Date Diagnosis/Indication Diagnosis SNOMED-CT Code Diagnosis ICD10 Code Diagnosis IMO Codes Diagnosis Note [id number] HAKAN OVIEDO MD [facility] 00 [address] [facility] [address] [place] [address] 01/13/2025 12:52:08 01/13/2025 13:23:57 Recurrent urinary tract infection 866639043 N39.0 [id number] HAKAN OVIEDO MD [facility] 00 [address] [facility] [address] [place] [address] 02/05/2025 08:28:20 02/05/2025 08:59:18 Recurrent urinary tract infection 335479790 N39.0 743018 Health Concerns Section Related Observation LastModified by Organization Detai ls LastModified Time None Recorded Concern Status LastModified by Organization Details LastModified Time None Recorded Advance Directives Directive None Recorded Payers Insurance Date Sequence Insurance Name Policy Number Policy [place] Covered Member ID [place] Member ID Guarantor Name 02/02/2025 1 [facility] ([facility] [id number] Dom Diallo [id number] Dom Diallo Notes Date Note Type Note Provider Name and Address Organization Details Recorded Time 01/13/2025 text/html ROS as noted in the HPI 01/13/25 CC: [id number] referred to my office for recurrent UTIs. Dom Diallo is a 59-year-old female who presents for a new patient visit. The patient reports experiencing recurrent urinary tract infections (UTIs) since November. She mentions that she has had occasional UTIs in the past, but not as frequent as the recent episodes. The initial infection in November was severe, causing significant discomfort and night sweats. The patient was initially treated with Macrobid, which did not fully resolve the infection. Subsequently, she was prescribed Levaquin for five days, which seemed to help, but the infection persisted. The patient reports burning sensation during urination and increased frequency, particularly at night. She denies any history of blood in the urine, and she has not required hospitalization or IV antibiotics for these infections. The patient has a history of smoking but quit a long time ago. She denies any allergies to medications. 12/31/24 UA and Micros: WBC 3-5, Bacteria trace; UC- Corynebacterium bovis12/25/24 UA and Micros: Blood trace, Nitrite positive, WBC 20-50, Squamous Epi Cell 10-20, Bacteria 2+; UC- E Coli12/22/24 UA and Micros: WBC 5-10, Squamous Epi Cell 5-10, Bacteria trace12/15/24 UA and Micros: WBC 3-5, Squamous Epi Cell 3-5, Bacteria 3+; UC- E Coli12/03/24 UA and Micros: Blood-trace, Nitrite-positive, WBC-20-50, Bacteria- 3+; UC- E Coli11/06/24 UA and Micros: WBC-occasional HAKAN OVIEDO MD [address] [facility], [place], [address], [facility] [place] & [place] 01/13/2025 13:30:00 02/05/2025 text/html ROS as noted in the HPI 02/05/25 CC: [id number] returns to my office for recurrent UTIs, started on Hiprex 1gram x30 days, and Cefdinir 300mg x10 days. Dom Diallo is a 59-year-old female who presents for a follow-up visit. She reports that her urination has been totally normal since her last visit. She has been taking methenamine twice a day as prescribed, with a two-month supply. She has not experienced any urinary tract infections (UTIs) or other urinary issues since starting the medication. Dom mentions that her mother had a terrible time with UTIs, but not until she was 80 years old. Dom prefers to try coming off the medication after completing the two-month course and will follow up if any issues arise. 01/13/25CC: [id number]-female referred to my office for recurrent UTIs.Dom Diallo is a 59-year-old female who presents for a new patient visit. The patient reports experiencing recurrent urinary tract infections (UTIs) since November. She mentions that she has had occasional UTIs in the past, but not as frequent as the recent episodes. The initial infection in November was severe, causing significant discomfort and night sweats. The patient was initially treated with Macrobid, which did not fully resolve the infection. Subsequently, she was prescribed Levaquin for five days, which seemed to help, but the infection persisted. The patient reports burning sensation during urination and increased frequency, particularly at night. She denies any history of blood in the urine, and she has not required hospitalization or IV antibiotics for these infections. The patient has a history of smoking but quit a long time ago. She denies any allergies to medications. 01/28/25 US renal ([facility]): no hydronephrosis, no solid or cystic renal mass12/31/24 UA and Micros: WBC 3-5, Bacteria trace; UC- Corynebacterium bovis12/25/24 UA and Micros: Blood trace, Nitrite positive, WBC 20-50, Squamous Epi Cell 10-20, Bacteria 2+; UC- E Coli12/22/24 UA and Micros: WBC 5-10, Squamous Epi Cell 5-10, Bacteria trace12/15/24 UA and Micros: WBC 3-5, Squamous Epi Cell 3-5, Bacteria 3+; UC- E Coli12/03/24 UA and Micros: Blood-trace, Nitrite-positive, WBC-20-50, Bacteria- 3+; UC- E Coli11/06/24 UA and Micros: WBC-occasional HAKAN OVIEDO MD [address] [facility], [place], [address], [facility] - [facility] 02/05/2025 12:59:00 OBGyn Episode No OBEpisode recorded.
--- OUTSIDE RECORDS SUMMARY | 2025-08-26 09:40 | XMS_ITS | Encounter Summary ---
[facility] Address [address] [place] [address] Care Team Providers Care Advertising Inserter Name Role Phone Jarrell Mitra THONG Primary Care Provider [phone] Encounter Details Date Type Department Care Team (Late st Contact Info) Description 06/18/2025 Results Follow-Up [facility] [address] [address] Dontrell Vance MD [address] [address] Social History Tobacco Use Types Packs/Day Years Used Date Smoking Tobacco: Former Cigarettes 0.5 4 0 10/15/1994 - 10/15/1998 Smokeless Tobacco: Never Comments:Nicorette gum curre ntly. Alcohol Use Standard Drinks/Week Comments Yes 2 (1 standard drink = 0.6 oz pur e alcohol) 2x a month Abuse Screen Answer Date Recorded Feels Unsafe at Home or Work/School no 04/26/2023 Feels Threatened by Someone no 04/14 Does Anyone Try to Keep You From Having Contact with Others or Doing Things Outside Your Home? no 04/26/2023 Physical Signs of Abuse Present no 04/26/2023 Housing Stability Answer Date Recorded Current Living Arrangements home 04/15 Potentially Unsafe Housing Conditions Not on kiesha e 05/10/2023 Disabilities Answer Date Recorded Difficulty Concentrating, Remembering or Making Decisions no 05/10/2023 Difficulty Managing Errands Independently no 05/10/2023 Education Answer Date Recorded Help with school or training? Not on file Preferred Language Burkinan 04/26/2023 Comments Unknown Sex and Gender Information Value Date Recorded Sex Assigned at Female 04/13/2025 7:53 AM EDT Legal Sex Female 12:42 PM EDT Gender Identity Not on file Sexual Orientation Straight 04/13/2025 7: 53 AM EDT documented as of this encounter Plan of Treatment Upcoming Encounters Date Type Department Care Team (Late st Contact Info) Description 09/07/2025 8:40 AM EST Office Visit [facility] [address] [place] [address] Carlin Ventura MD [address] [facility] [address] [place], [place] [id number] 12/15/2025 10:00 AM EST Office Visit [facility] [address] [address] Dontrell Vance MD [address] [place] [address] documented as of this encounter Visit Diagnoses Not on filedocumented in this encounter Care Teams Advertising Inserter Relationship Specialty Start Date End Date Mitra Vieyra APRN [address] [place] [address] PCP - General Nurse Practitioner 08/07/24 documented as of this encounter
--- OUTSIDE RECORDS SUMMARY | 2025-08-26 09:40 | XMS_ITS | Data Portability ---
Author Organization [facility] STEPHANIE Musa OXLY CLOSED Address [address] [place] [address] Care Team Providers Care Rn Trauma Name Role Phone AMAURY MACEDO Primary Care Provider [phone] CATRINA STEINER Felt Machine Mechanic Assessment No assessment recorded. Plan of Treatment Reminders Order Date Submit Date Provider Last Modified By Organization Details Last Modified Time Details Appointments FOLLOW UP DAK 2025 10:10A M CATRINA CHAPPELL MD Not available Not available Not available Lab None recorded . Referral None recorded . Procedures None recorded . Surgeries None recorded . Imaging None recorded . Medication Orders None recorded . Patient TargetsNo targets recorded. Patient Instructions Encounter Date Encounter Id Patient Instructions Last Modified By Organization Details Last Modified Time 02/11/2025 [id number] Recommended returning to clinic in 1 year for FBSE Not available 02/11/2025 11:32:19 Reason for Referral None Reported. Problems Name Problem SNOMED Code Status Onset Date Resolution Date Notes Provider Name and Address Organization Details Recorded Time History of atypical nevus 3306374004008 Active 2024 Tessa beltrán [facility] 11:35:50 History of malignant neoplasm of skin 565073051 Active 2024 Tessa [facility] 11:35:51 Problem Notes None recorded. Procedures Surgical History Date Name Laterality Status Provider Name and Address Organization Details Recorded Time 02/11/2025 DAK - [facility] 02/11/2025 11:33:00 Imaging Results None recorded. Procedure Notes None recorded. Medical Equipment None Reported. Allergies No known drug allergies Medications Name Sig Start Date Stop Date Status Note LastModified by Organization Details LastModified Time meloxicam active Not Available Not Yumiko ilable Not Available losartan active Not Available Not Avai lable Not Available Synthroid active Not Available Not Yumiko ilable Not Available allopurinol active Not Available Not A vailable Not Available Vitals None Recorded Social History Question Answer Notes LastModified by Organizat ion Details LastModified Time Tobacco Smoking Status Never Smoker [facility] 02/11/2025 11:19:53 Sunscreen Use? Yes Informatio n not available 02/11/2025 Tanning Bed Use No Informati on not available 02/11/2025 What Was The Date Of Your Most Recent Tobacco Screening? 02/11/2025 Information not available 02/11/2025 Sex: Unknown Functional Status None recorded. Mental Status None recorded. Family History Nothing Reported. Medical History Condition Response Basal Cell Carcinoma Y Other Skin Condition Gynecological HistoryNo gynecological history recorded. Obstetrics History GPAL:G 0 P 0 0 0 0 Past Encounters Encounter ID Performer Location Encounter Start Date Encounter Closed Date Diagnosis/Indication Diagnosis SNOMED-CT Code Diagnosis ICD10 Code Diagnosis IMO Codes Diagnosis Note [id number] CATRINA CHAPPELL MD [address] [id number] 01/15/2024 09:03:30 01/28/2024 10:25:33 [id number] CATRINA CHAPPELL MD [address] [id number] 02/01/2024 09:30:54 02/01/2024 10:27:49 History of atypical nevus 8339836912 101 Z86.018 Personal history of atypical moles suggests increased future melanoma risk. Monthly self-skin exams to monitor moles for change in shape, size or color are recommende d as well as regular full skin exams. Sun protection with broad spectrum SPF 30 sunscreen and broad-brim med hat is recommende d. 07/2013 - L lower thorax Multiple b enign melanocytic nevi 345059485 D22.5 Benign appearing nevi noted on exam. Reassured. Monitor for changes and call us for appt if changing or worrisome. Recommende d daily SPF 30 (or higher) broad-spec trum sunscreen usage with re-applica tion every 2 hours, as well as sun protection measures, including wide-brimm ed hats, wearing of protective clothing, and avoidance of sun during peak hours of the day 10 am - 4 pm. Avoid tanning beds as these can increase chances of all 3 main types of skin cancers. Seborrheic keratosis 394 356972 L82.1 Seborrheic keratosis are benign but may be cosmetical ly bothersome . Cosmetic removal with liquid nitrogen is an option. This may leave discolorat ion, or the SK may persist or recur at the treatment site. 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 Reassured. Monitor for changes and call us for appt if changing or worrisome. Recommende d daily SPF 30 (or higher) broad-spec trum sunscreen usage with re-applica tion every 2 hours, as well as sun protection measures, including wide-brimm ed hats, wearing of protective clothing, and avoidance of sun during peak hours of the day 10 am - 4 pm. Avoid tanning beds as these can increase chances of all 3 main types of skin cancers. Seborrheic keratosis 394 008088 L82.1 Seborrheic keratosis are benign but may be cosmetical ly bothersome . Cosmetic removal with liquid nitrogen is an option. This may leave discolorat ion, or the SK may persist or recur at the treatment site. Solar lentigo 85776889 L 81.4 - Benign brown spots - Sun-induce d Senile angioma 0879187 I 78.1 - Benign blood vessel growths - Hereditary History of malignant neoplasm of skin 872893406 Z85.828 - No evidence of recurrence today- Call with any worrisome lesions or if treated lesions return- Return at regular intervals for skin exam as recommende d Most recent, 10/2017 History of atypical nevus 6441733068 101 Z86.018 Personal history of atypical moles suggests increased future melanoma risk. Monthly self-skin exams to monitor moles for change in shape, size or color are recommende d as well as regular full skin exams. Sun protection with broad spectrum SPF 30 sunscreen and broad-brim med hat is recommende d. 07/2013 - L lower thorax Actinic keratosis 467196 007 L57.0 Actinic keratoses are precancero us lesions that may progress to squamous cell carcinoma if untreated. UV light and genetics may increase risk. Treated lesions should blister, scab over, and heal within a few weeks. If treated lesion(s) does not resolve within 1-2 months, patient agrees to follow up for re-evaluat ion. Health Concerns Section Related Observation LastModified by Organization Detai ls LastModified Time None Recorded Concern Status LastModified by Organization Details LastModified Time None Recorded Advance Directives Directive None Recorded Payers Insurance Date Sequence Insurance Name Policy Number Policy [place] Covered Member ID [place] Member ID Guarantor Name 02/16/2025 1 [place] [id number] R Fabi Diallo [id number] Fabi Diallo Notes Date Note Type Note Provider Name and Address Organization Details Recorded Time 02/01/2024 text/html ROS as noted in the HPI skin checkhx of BCC - R upper armhx of AMN - L lower thorax CATRINA CHAPPELL MD [address] [place] [address] [place], [address], [facility] 02/04/2024 10:37:03 02/11/2025 text/html ROS as noted in the HPI Here for a full body skin examination - last skin check: 02/05- history of skin cancer - hx of BCC - R upper armhx of AMN - L lower thorax - spots of concern today: none today CATRINA CHAPPELL MD [address] [place] [address], [phone], [facility] 02/11/2025 12:37:45 OBGyn Episode No OBEpisode recorded.
--- OUTSIDE RECORDS SUMMARY | 2025-08-26 09:40 | XMS_ITS | Clinical Summary ---
Author Organization Healthcare Address [address] [place] [address] Care Team Providers Care Ship'S Captain Name Role Phone Marvin Obregon MD Primary Care Provider [phone] Family History Medical History Relation Name Comments Breast cancer Mother Relation Name Status Comments Mother Social History Tobacco Use Types Packs/Day Years Used Date Smoking Tobacco: Former Comments Unknown Sex and Gender Information Value Date Recorded Sex Assigned at Not on file Legal Sex Female 7:37 PM EDT Gender Identity Not on file Sexual Orientation Not on file Last Filed Vital Signs Vital Sign Reading Time Taken Comments Blood Pressure - - Pulse - - Temperature - - Respiratory Rate - - Oxygen Saturation - - Inhaled Oxygen Concentration - - Weight 86.2 kg (189 lb 15.9 oz) 06/15/2015 2:18 PM EDT Height 172.7 cm (5' 8 ) 07/27/2015 1:46 PM EDT Body Mass Index 28.89 06/15/2015 2:18 PM EDT Plan of Treatment Not on file Care Teams Ship'S Captain Relationship Specialty Start Date End Date Marvin Obregon MD [address] [place] [address] PCP - General 02/25/21
--- OUTSIDE RECORDS SUMMARY | 2025-08-26 09:40 | XMS_ITS | Clinical Summary ---
Author Organization [facility] Address [facility] [address] [facility] [place] [address] Phone Care Team Providers Care Video Engineer Name Role Phone Marivn Obregon MD Primary Care Provider [phone] Social History Tobacco Use Types Packs/Day Years Used Date Smoking Tobacco: Never Assessed Comments Unknown Sex and Gender Information Value Date Recorded Sex Assigned at Not on file Legal Sex Female 10:05 PM EDT Gender Identity Not on file Sexual Orientation Not on file Plan of Treatment Health Maintenance Due Date Last Done Comments Annual Wellness Exam 1966 Hepatitis C Screening 1981 DTaP/TDaP/Td (1 - Tdap) 1982 Cologuard 2008 Colon Cancer Screening 2008 Colonoscopy 2008 FIT 2008 Sigmoidoscopy 2008 Virtual Colonography 2008 Pneumococcal Vaccine 50+ (1 of 1 - PCV) 2013 Zoster (1 of 2) 2013 COVID-19 Vaccine ( - 2024-2 6 season) 2025 Influenza Vaccine (#1) 2025 Hepatitis B Vaccine Aged Out No longe r eligible based on patient's age to complete this topic Meningococcal B Vaccine Aged Out No l onger eligible based on patient's age to complete this topic Care Teams Video Engineer Relationship Specialty Start Date End Date Marvin Obregon MD [address] [place] [address] PCP - General Family Medicine 07/15/13
--- OUTSIDE RECORDS SUMMARY | 2025-08-26 09:40 | XMS_ITS | Clinical Summary ---
[facility] Address [address] [place] [address] Care Team Providers Care Medical Instrument Cable Fabricator Name Role Phone Jarrell Mitra THONG Primary Care Provider [phone] Allergies Active Allergy Reactions Criticality Noted Date Comments Lisinopril Cough Low 05/04/2025 Medications Synthroid 75 MCG tablet Take 1 tablet by mouth Daily. 12/14/2022 Active EPINEPHrine (EPIPEN) 0.3 MG/0.3ML solution auto-injector injection As Needed. 11/30/2022 Active allopurinol (ZYLOPRIM) 100 MG tablet 11/05/2023 Active losartan (COZAAR) 25 MG tablet Take 1 tablet by mouth Daily. 11/10/2023 Active diclofenac (VOLTAREN) 75 MG EC tabletIndication s:Generalized osteoarthrosis, involving multiple sites,Gout, unspecified cause, unspecified chronicity, unspecified site Take 1 tablet by mouth 2 (Two) Times a Day. 180 tablet 3 06/17/2025 Active Active Problems Problem Noted Date Diagnosed Date Generalized osteoarthrosis, involving multiple s ites 03/24/2024 Assessment & Plan (03/24/2024 10:09 AM EDT): Enjoys golf Chronic left knee pain, right 4th DIP pain/swelling onset October 2023 Son with psoriasis, but no psoriasis herself Right ankle initial gout flare July 2023 *Left knee meniscal [address] Cook 2019 *Orthopedics Dr. Ventura replaced right hip April [address] Hylton/Dr Castellon has injected left knee x2; ACL steroid injection left knee 01/03/2024 Left knee xray 12/04/23: Moderate to severe osteoarthritis medial compartment patellofemoral compartment left knee X-ray hands 12/04/2023: Osteoarthritis hands Labs 12/06/2023: Negative MIKEY, normal RF/ACPA, negative ANCA, negative hepatitis panel/QTB, normal CBC/CMP Current: Oral diclofenac, allopurinol Treatments tried: Left knee steroid injection with pain management, ACL 01/03/24, meloxicam, naproxen, allopurinol. Patient with evidence of left knee osteoarthritis and right hand 4th DIP osteoarthritis. I do not see evidence of active inflammatory arthritis on my exam today. -Continue allopurinol 100 mg daily which seems to be controlling her gout well -Switch from meloxicam to oral diclofenac which has been taking recently with good success -Left knee steroid injection 01/03/2024 ACL continues to be helpful -She will call me if she wants to schedule repeat left knee steroid injection in the future Risks of NSAIDs discussed including GI upset, GI bleeding, renal and hepatic risks and the risks of cardiovascular disease and stroke. Warned patient not to take with other NSAIDs including OTC NSAIDs. Handout provided today on osteoarthritis and NSAIDs Return to clinic 6 months or sooner for any injection Primary osteoarthritis of left knee 03/24/2024 Assessment & Plan (05/08/2024 8:45 AM EDT): Status post left meniscal repair with Dr Joyce g[facility] [address] Ventura replaced right hip Pain management Dr. Hylton/Dr Castellon. Left knee steroid injection 05/08/2024 Consent form reviewed and signed 05/08/2024 See procedure note Patient can have injection every 3 months as needed. She had prior left meniscal repair with Dr Joyce garcia [facility] 2020 I do not feel any synovitis or evidence of inflammatory arthritis involving the knee or other peripheral joints today. She reports prior steroid injections x2 with pain management in 2022 left knee helped for a few months. Recommend p.r.n. NSAID for knee pain Assessment & Plan (03/24/2024 10:09 AM EDT): Status post left meniscal repair with Dr Joyce garcia [facility] [address] Ventura replaced right hip Pain management Dr. Hylton/Dr Castellon. She has evidence of left knee osteoarthritis. Improved with as needed NSAID/intermittent steroid injection She had prior left meniscal repair with Dr Cook [facility] 2019 I do not feel any synovitis or evidence of inflammatory arthritis involving the knee or other peripheral joints today. She reports prior steroid injections x2 with pain management in 2022 left knee helped for a few months. Recommend weight loss through Mediterranean diet Recommend quad strengthening exercises Recommend p.r.n. NSAID for knee pain Gout 03/24/2024 Assessment & Plan (03/24/2024 10:09 AM EDT): History of gout flare x1 right ankle July 2023 Uric acid at that time was mildly elevated. Started allopurinol fall. No evidence of active gout today or recently Uric acid below 6 on allopurinol. NSAID long-term use 03/24/2024 HTN (hypertension) 05/10/2023 HERNAN on CPAP 05/10/2023 History of right hip replacement 05/10/2023 Assessment & Plan (03/24/2024 8:34 AM EDT): Orthopedics Dr. Ventura Right hip replacement April 2023 Primary osteoarthritis of right hip 01/03/2023 Encounters Date Type Department Care Team Description 06/18/2025 Results Follow-Up [facility] [address] [place] [phone] Dontrell Vance MD 06/17/2025 2:45 PM EDT Office Visit [facility] [address] [place] [phone] Dontrell Vance MD Generalized osteoarthrosis, involving multiple sites; Gout, unspecified cause, unspecified chronicity, unspecified site 06/17/2025 Telephone [facility] [address] [place] [phone] Dontrell Vance MD 06/17/2025 Travel from Last 3 Months Family History Medical History Relation Name Comments Arthritis Father Dementia Father Arthritis Mother Lisa Jesus Breast cancer Mother Lisa Ann Marie Cancer Mother Lisa eJsus Heart disease Mother Lisa Jesus Heart failure Mother Lisa Jesus Osteoporosis Mother Lisa Jesus Parkinsonism Sister Relation Name Status Comments Father Mother Lisa Jesus Alive Sister Social History Tobacco Use Types Packs/Day Years Used Date Smoking Tobacco: Former Cigarettes 0.5 4 0 10/15/1994 - 10/15/1998 Smokeless Tobacco: Never Tobacco Cessation:Counseling Given: Not Answered Comments:Nicorette gum currently. Alcohol Use Standard Drinks/Week Comments Yes 2 [...] or training? Not on file Preferred Language Brazilian 04/26/2023 Comments Unknown Sex and Gender Information Value Date Recorded Sex Assigned at Female 04/13/2025 7:53 AM EDT Legal Sex Female 12:42 PM EDT Gender Identity Not on file Sexual Orientation Straight 04/13/2025 7: 53 AM EDT Last Filed Vital Signs Vital Sign Reading Time Taken Comments Blood Pressure 126/76 06/17/2025 2:42 PM EDT Pulse 69 06/17/2025 2:42 PM EDT Temperature 36.2 C (97.1 F) 06/17/2025 2:42 PM EDT Respiratory Rate 18 05/10/2023 11:23 AM EDT Oxygen Saturation 96% 05/10/2023 11:23 AM EDT Inhaled Oxygen Concentration - - Weight 80.8 kg (178 lb 3.2 oz) 06/17/2025 2:42 P M EDT Height 172.7 cm (5' 8 ) 06/17/2025 2:42 PM EDT Body Mass Index 27.1 06/17/2025 2:42 PM EDT Plan of Treatment Upcoming Encounters Date Type Department Care Team (Late st Contact Info) Description 09/07/2025 8:40 AM EST Office Visit [facility] [address] [facility] [address] [place], [place] [id number] Carlin Ventura MD [address] [facility] [address] [place] [address] 12/15/2025 10:00 AM EST Office Visit [facility] R[facility] [address] [facility] [address] [place] [phone] Dontrell Vance MD [address] [address] Health Maintenance Due Date Last Done Comments Annual Gynecologic Pelvic an d Breast Exam 1963 TDAP/TD VACCINES (1 - Tdap) 1982 PAP SMEAR 1984 COLOGUARD 2008 COLON CANCER SCREENING 5 YEA R SIGMOIDOSCOPY 2008 COLONOSCOPY [address] CANCER SCREENING 2008 CT COLONOGRAPHY 2008 FECAL OCCULT BLOOD TEST 2008 FIT Testing (1 year) 2008 Pneumococcal Vaccine 50+ (1 of 1 - PCV) 2013 ZOSTER VACCINE (1 of 2) 2013 MAMMOGRAM 07/27/2017 07/27/2015, 07/15, 07/22/2014, Additional history exists ANNUAL PHYSICAL 01/03/2023 HEPATITIS C SCREENING 01/03/2023 INFLUENZA VACCINE 05/15/2025 08/09/2023, , 11/07/2021, Additional history exists Medical Devices Implanted Type Area Nitro Worker Device Identifier Shelf Expiration Date Model / Serial / Lot Dev Contrl Tiss Stratafix Spiral Mncryl Ud 3/0 Pls 60cm - [id number] Implanted:Qty : 1 on 05/10/2023 by Carlin Ventura MD at [facility] Implant Right: Hip [employer] J [id number] / / Dev Contrl Tiss Stratafix Symm Pds Plus Bria Ct-1 45cm - [id number] Implanted:Qty : 1 on 05/10/2023 by Carlin Ventura MD at [facility] Implant Right: Hip [employer] J AND J [id number] / / Shll Acet R3 3h Std 56mm - [id number] Implanted:Qty : 1 on 05/10/2023 by Carlin Ventura MD at [facility] Implant Right: Acetabulum [employer] [id number] 01/18/2033 [id number] / / [id number] Scrw Sph Hd Reflection 6.5x25mm - [id number] Implanted:Qty : 1 on 05/10/2023 by Carlin Ventura MD at [facility] Implant Right: Acetabulum [employer] [id number] 11/23/2032 [id number] / / [id number] Liner Acet R3 Xlpe 0d [id number] - [id number] Implanted:Qty : 1 on 05/10/2023 by Carlin Ventura MD at [facility] Implant Right: Acetabulum [employer] [id number] 01/24/2033 [id number] / / [id number] Stem Fem/Hip Polarstem W/Colr Std Sz4 - [id number] Implanted:Qty : 1 on 05/10/2023 by Carlin Ventura MD at [facility] Implant Right: Femur [employer] [id number] 01/25/2030 [id number] / / [id number] Hd Fem/Hip [id number] 09/27 36mm Lg Pls8 - [id number] Implanted:Qty : 1 on 05/10/2023 by Carlin Ventura MD at [facility] Implant Right: Femur [employer] [id number] 05/13/2028 [id number] / / [id number] Procedures Procedure Name Priority Date/Time Associated Diagnosis Comments CBC AND DIFFERENTIAL Routine 06/17/2025 3:13 PM EDT URIC ACID Routine 06/17/2025 3:13 PM EDT Generalized osteoarthrosis, involving multiple sites Gout, unspecified cause, unspecified chronicity, unspecified site COMPREHENSIVE METABOLIC PANEL Routine 06/17/2025 3:13 PM EDT Generalized osteoarthrosis, involving multiple sites Gout, unspecified cause, unspecified chronicity, unspecified site from Last 3 Months Results * (ABNORMAL) CBC & Differential (06/17/2025 3:13 PM EDT) WBC 10.8 3.4 - 10.8 x10E3/uL [facility] RBC 5.02 3.77 - 5.28 x10E6/uL [facility] Hemoglobin 15.2 11.1 - 15.9 g/dL [facility] Hematocrit 47.2(H) 34.0 - 46.6 % [facility] MCV 94 79 - 97 fL [facility] MCH 30.3 26.6 - 33.0 pg [facility] MCHC 32.2 31.5 - 35.7 g/dL [facility] RDW 12.9 11.7 - 15.4 % [facility] Platelets 311 150 - 450 x10E3/uL [facility] Neutrophil Rel % 68 Not Estab. % [facility] Lymphocyte Rel % 22 Not Estab. % [facility] Monocyte Rel % 7 Not Estab. % [facility] Eosinophil Rel % 2 Not Estab. % [facility] Basophil Rel % 1 Not Estab. % [facility] Neutrophils Absolute 7.4(H) 1.4 - 7.0 x10E3/uL [facility] Lymphocytes Absolute 2.4 0.7 - 3.1 x10E3/uL [facility] Monocytes Absolute 0.7 0.1 - 0.9 x10E3/uL [facility] Eosinophils Absolute 0.2 0.0 - 0.4 x10E3/uL [facility] Basophils Absolute 0.1 0.0 - 0.2 x10E3/uL [facility] Immature Granulocyte Rel % 0 Not Estab. % [facility] Immature Grans Absolute 0.0 0.0 - 0.1 x10E3/uL [facility] 06/17/2025 3:13 PM EDT 06/17/2025 Narrative [facility] ([facility]) - 06/18/2025 9:07 AM EDT Performed at: - [facility] [address] [place] [id number] Firearms Sales Associate: Arturo Pastor PhD, Phone: [phone] Patient Fasting: N us Dontrell Vance MD LAB BLOOD ORDERABLES Final Result Performing Organization Address City/[facility]/ZIP Co de Phone Number [facility] (AMBULATORY) [address] [place] [address], [facility] [address] [place] [address], * Uric Acid (06/17/2025 3:13 PM EDT) Uric Acid 4.8 3.0 - 7.2 mg/dL [facility] Comment:Therapeutic target f or gout patients: <6.0 Blood 06/17/2025 3:13 PM EDT 06/17/2025 Narrative [facility] ([facility]) - 06/18/2025 9:07 AM EDT Performed at: - [facility] [address] [place] [address] [id number] Firearms Sales Associate: Arturo Pastor PhD, Phone: [phone] Patient Fasting: N us Dontrell Vance MD LAB BLOOD ORDERABLES Final Result Performing Organization Address City/[facility]/ZIP Co de Phone Number [facility] (AMBULATORY) [address] [place] [address], [facility] [address] [place] [address], * Comprehensive Metabolic Panel (06/17/2025 3:13 PM EDT) Glucose 82 70 - 99 mg/dL [facility] BUN 16 8 - 27 mg/dL [facility] Creatinine 0.98 0.57 - 1.00 mg/dL [facility] EGFR Result 66 >59 mL/min/1.7 3 [facility] BUN/Creatinine Ratio 16 12 - 28 [facility] Sodium 141 134 - 144 mmol/L [facility] Potassium 4.6 3.5 - 5.2 mmol/L [facility] Chloride 103 96 - 106 mmol/L [facility] Total CO2 22 20 - 29 mmol/L [facility] Calcium 9.5 8.7 - 10.3 mg/dL [facility] Total Protein 7.3 6.0 - 8.5 g/dL [facility] Albumin 4.6 3.9 - 4.9 g/dL [facility] Globulin 2.7 1.5 - 4.5 g/dL [facility] Total Bilirubin 0.5 0.0 - 1.2 mg/dL [facility] Alkaline Phosphatase 102 44 - 121 IU/L [facility] Comment: Effective June 29, 2025 Alkaline Phosphatase reference interval will be changing to: Age Male Female 0 - 5 days 47 - 127 47 - 127 6 - 10 days 29 - 242 29 - 242 11 - 20 days 109 - 357 109 - 357 21 - 30 days 94 - 494 94 - 494 1 - 2 months 149 - 539 149 - 539 3 - 6 months 131 - 452 131 - 452 7 - 11 months 117 - 401 117 - 401 12 months - 6 years 158 - 369 158 - 369 7 - 12 years 150 - 409 150 - 409 13 years 156 - 435 78 - 227 14 years 114 - 375 64 - 161 15 years 88 - 279 56 - 134 16 years 74 - 207 51 - 121 17 years 63 - 161 47 - 113 18 - 20 years 51 - 125 42 - 106 21 - 50 years 47 - 123 41 - 116 51 - 80 years 49 - 135 51 - 125 >80 years 48 - 129 48 - 129 AST (SGOT) 23 0 - 40 IU/L [facility] ALT (SGPT) 30 0 - 32 IU/L [facility] Blood 06/17/2025 3:13 PM EDT 06/17/2025 Narrative [facility] ([facility]) - 06/18/2025 9:07 AM EDT Performed at: 01 - [address] [id number] Firearms Sales Associate: Arturo Pastor PhD, Phone: [phone] Patient Fasting: N Dontrell Vance MD LAB BLOOD ORDERABLES Final Result [facility] ([facility]) [address] [place] [address], [place] [phone] [facility] [address] [place] [address], [place] [phone] from Last 3 Months Insurance [facility] [place] [id number] [facility] [employer] [facility] PPO Advance Directives * CPR (Attempt to Resuscitate) (Latest Code Status on File) Date Activated Date Inactivated Comments 05/10/2023 11:19 AM 05/10/2023 6:25 PM Question Answer Comments Code Status (Patient has no pulse and is not breathing): CPR (Attempt to Resuscitate) Medical Interventions (Patie nt has pulse or is breathing): Full Support Release to patient: Routine Release Care Teams Medical Instrument Cable Fabricator Relationship Specialty Start Date End Date Mitra Vieyra APRN [address] [place] [address] [place] [address] PCP - General Nurse Practitioner 08/07/24
--- NOTE | 2025-08-26 10:00 | US_ITS ---
FINAL REPORT CLINICAL HISTORY: posterior neck [id number] mass FINDINGS: Limited sonographic images were obtained of the soft tissues in the posterior neck at the area of reported palpable abnormality. Small subcutaneous cystic appearing nodule measuring 3 mm. This is much smaller than reported by clinical history. If concern for larger lesion than is visualized, CT with contrast recommended. No adenopathy. IMPRESSION: Tiny benign-appearing subcutaneous cyst. Reviewed, Interpreted and Dictated by Seymour Carroll MD Transcribed by Dorie Walker Authenticated and [facility]
== END 2025-08-26 23:59 | disposition home or self-care (01) ==
LOC: RAD 09:34
PROVIDERS: PCP Nurse Practitioner Family; Visit Provider Nurse Practitioner Family
DX: L72.9 Follicular cyst of the skin and subcutaneous tissue, unspecified (principal)
CPT/HCPCS: 76536

== ENCOUNTER 2025-09-11 10:59 | Outpatient (CLI) | payer BC, SELFPAY ==
--- OUTSIDE RECORDS SUMMARY | 2025-09-07 08:40 | XMS_ITS | Encounter Summary ---
Author Organization [facility] Address [address] [id number] Care Team Providers Care Clerical Stock Inspector Name Role Phone Mitra Vieyra APRN Primary Care Provider [phone] Reason for Referral * Medical Care (Routine) - Pending Review Specialty Diagnoses / Procedures Referred By Contac t Referred To Contact Orthopedic Surgery Diagnoses Primary osteoarthritis of left knee Procedures Large Joint Arthrocentesis Carlin Ventura MD [address] [place] [address] Phone: tel: fax: Carlin Ventura MD [address] [place] [address] Phone: tel: fax: Referral ID Status Reason Start Date Expiration Date V isits Requested Visits Authorized [id number] Pending Review 09/07/2025 12/07/2026 1 1 Reason for Visit * Reason Comments Follow-up 4 month follow up - Primary osteoarthritis of left knee Encounter Details Date Type Department Care Team (Late st Contact Info) Description 09/07/2025 8:40 AM EST Office Visit [facility] [address] [place] [address] Carlin Ventura MD [address] [place] [address] Primary osteoarthritis of left knee (Primary Dx) Social History Tobacco Use Types Packs/Day Years [...] or training? Not on file Preferred Language Georgian 04/26/2023 Comments Unknown Sex and Gender Information Value Date Recorded Sex Assigned at Female 04/13/2025 7:53 AM EDT Legal Sex Female 12:42 PM EDT Gender Identity Not on file Sexual Orientation Straight 04/13/2025 7: 53 AM EDT documented as of this encounter Last Filed Vital Signs Vital Sign Reading Time Taken Comments Blood Pressure 134/80 09/07/2025 8:42 AM EST Pulse - - Temperature - - Respiratory Rate - - Oxygen Saturation - - Inhaled Oxygen Concentration - - Weight 79.8 kg (176 lb) 09/07/2025 8:42 AM EST Height 172.7 cm (5' 7.99 ) 09/07/2025 8:42 AM ES T Body Mass Index 26.77 09/07/2025 8:42 AM EST documented in this encounter Progress Notes * Carlin Ventura MD - 09/07/2025 8:40 AM EST Images from the original note were not included. [facility] [place] [facility] [place] Subjective Chief Complaint Patient presents with Follow-up 4 month follow up - Primary osteoarthritis of left knee HPI It has been 4 month(s) since Ms. Diallo's last visit. She returns to clinic today for follow-up of left knee arthritis. The issue has been ongoing for 4 year(s). She rates her pain a 2/10 on the pain scale. Previous/current treatments: bracing, NSAIDS, and viscosupplementation (last injection 05/04/25). Current symptoms: pain and grinding. The pain is worse with going down stairs; heat and painmedication and/or NSAID improve the pain. Overall, she is doing better. Good relief with viscosupplementation injection series. I have reviewed the following portions of the patient's history and agree with: History of Present Illness and Review of Systems Patient Active Problem List Diagnosis Primary osteoarthritis of right hip HTN (hypertension) HERNAN on CPAP History of right hip replacement Generalized osteoarthrosis, involving multiple sites Primary osteoarthritis of left knee Gout NSAID long-term use Past Medical History: Diagnosis Date Closed fracture of finger left middle finger Disease of thyroid gland Gout Hip arthrosis Hypertension Knee swelling Osteoarthritis Sleep apnea CPAP nightly Tear of meniscus of knee 2019 Past Surgical History: Procedure Laterality Date COLONOSCOPY FINGER SURGERY Left 2014 Thumb-piece of bone removed KNEE ARTHROSCOPY W/ MENISCECTOMY Left 2019 KNEE SURGERY 2019 [facility]icus SHOULDER ARTHROSCOPY W/ LABRAL REPAIR Bilateral Left in 2000 and Right in 2007 SHOULDER SURGERY 1999 TOTAL HIP ARTHROPLASTY Right 05/10/2023 Procedure: MODIFIED ANTERIOR TOTAL HIP ARTHROPLASTY - RIGHT; Surgeon: Carlin Ventura MD; Location: [facility]; Service: Orthopedics; Laterality: Right; TUBAL ABDOMINAL LIGATION 1994 WRIST SURGERY 06/18/2024 Family History Problem Relation Name Age of Onset Heart failure Mother Lisa Jesus Breast cancer Mother Lisa Ann Marie Cancer Mother Lisa Ann Marie Osteoporosis Mother Lisa Ann Marie Heart disease Mother Lisa Ann Marie Arthritis Mother Lisa Ann Marie Dementia Father Arthritis Father Parkinsonism Sister Social History Socioeconomic History Marital status: Tobacco Use Smoking status: Former Current packs/day: 0.00 Average packs/day: 0.5 packs/day for 4.0 years (2.0 ttl pk-yrs) Types: Cigarettes Start date: 10/15/1994 Quit date: 10/15/1998 Years since quittin.9 Smokeless tobacco: Never Tobacco comments: Nicorette gum currently. Vaping Use Vaping status: Never Used Substance and Sexual Activity Alcohol use: Yes Alcohol/week: 2.0 standard drinks of alcohol Types: 2 Cans of beer per week Comment: 2x a month Drug use: Never Sexual activity: Yes Partners: Male control/protection: Post-menopausal, Tubal ligation Current Outpatient Medications on File Prior to Visit Medication Sig Dispense Refill allopurinol (ZYLOPRIM) 100 MG tablet diclofenac (VOLTAREN) 75 MG EC tablet Take 1 tablet by mouth 2 (Two) Times a Day. 180 tablet 3 EPINEPHrine (EPIPEN) 0.3 MG/0.3ML solution auto-injector injection As Needed. fluticasone (Flonase Allergy Relief) 50 MCG/ACT nasal spray Daily. losartan (COZAAR) 25 MG tablet Take 1 tablet by mouth Daily. Synthroid 75 MCG tablet Take 1 tablet by mouth Daily. No current facility-administered medications on file prior to visit. Allergies Allergen Reactions Lisinopril Cough Review of Systems Constitutional: Negative for activity change, appetite change, chills, diaphoresis, fatigue, fever and unexpected weight change. HENT: Negative for congestion, dental problem, drooling, ear discharge, ear pain, facial swelling, hearing loss, mouth sores, nosebleeds, postnasal drip, rhinorrhea, sinus pressure, sneezing, sore throat, tinnitus, trouble swallowing and voice change. Eyes: Negative for photophobia, pain, discharge, redness, itching and visual disturbance. Respiratory: Negative for apnea, cough, choking, chest tightness, shortness of breath, wheezing andstridor. Cardiovascular: Negative for chest pain, palpitations and leg swelling. Gastrointestinal: Negative for abdominal distention, abdominal pain, anal bleeding, blood in stool,constipation, diarrhea, nausea, rectal pain and vomiting. Endocrine: Negative for cold intolerance, heat intolerance, polydipsia, polyphagia and polyuria. Genitourinary: Negative for decreased urine volume, difficulty urinating, dysuria, enuresis, flank pain, frequency, genital sores, hematuria and urgency. Musculoskeletal: Positive for arthralgias. Negative for back pain, gait problem, joint swelling, myalgias, neck pain and neck stiffness. Skin: Negative for color change, pallor, rash and wound. Allergic/Immunologic: Negative for environmental allergies, food allergies and immunocompromised state. Neurological: Negative for dizziness, tremors, seizures, syncope, facial asymmetry, speech difficulty, weakness, light-headedness, numbness and headaches. Hematological: Negative for adenopathy. Does not bruise/bleed easily. Psychiatric/Behavioral: Negative for agitation, behavioral problems, confusion, decreased concentration, dysphoric mood, hallucinations, self-injury, sleep disturbance and suicidal ideas. The patientis not nervous/anxious and is not hyperactive. Objective Physical Exam BP 134/80 Ht 172.7 cm (67.99 ) Wt 79.8 kg (176 lb) BMI 26.77 kg/m?? Body mass index is 26.77 kg/m??. BMI is >= 25 and <30. (Overweight) The following options were offered after discussion;: referral to primary care General: Mental Status: Alert Appearance: Cooperative, in no acute distress Build and Nutrition: Well-nourished well-developed female Orientation: Alert and oriented to person, place and time Posture: Normal Gait: Nonantalgic Integument: Left knee: No skin lesions, no rash, no ecchymosis Lower Extremities: Left Knee: Tenderness: None Effusion: None Swelling: None Crepitus: Positive Range of motion: Extension: 0?? Flexion: 130?? Instability: No varus laxity, no valgus laxity, negative anterior drawer Deformities: Varus Imaging/Studies Imaging Results (Last 24 Hours) Procedure Component Value Units Date/Time XR Knee 4+ View Left [[id number]] Resulted: 09/07/25857 Updated: 09/07/25857 Narrative: Left Knee Radiographs Indication: left knee pain Views: Standing AP's and skiers of both knees, with lateral and sunrise views of the left knee Comparison: 09/01/2024 Findings: Wqzl-tr-wfxk contact medial compartment, tricompartmental osteophytes, varus alignment, no acute bony abnormalities. No unusual bony features. Advanced knee arthritis. Mild worsening compared to the previous imaging. Assessment and Plan Diagnoses and all orders for this visit: 1. Primary osteoarthritis of left knee (Primary) - XR Knee 4+ View Left - Large Joint Arthrocentesis 1. Primary osteoarthritis of left knee I reviewed my findings with the patient. She responded well to the viscosupplementation injection series, and her knee is doing well currently. I will see her back in 2 months, at which point we may readminister the viscosupplementation injections if appropriate. Long-term she is a candidate for knee replacement surgery when her symptoms warrant. Return in about 2 months (around 11/07/2025) for after approval of visco injection(s). Carlin Ventura MD 09/07/25 09:02 EST Dictated Utilizing [employer] Dictation documented in this encounter Plan of Treatment Upcoming Encounters Date Type Department Care Team (Late st Contact Info) Description 12/15/2025 10:00 AM EST Office Visit [facility] R[facility] [address] [address] Dontrell Vance MD 330 [facility] [address] [place] [address] Scheduled Orders Name Type Priority Associated Diagnoses Orde r Schedule Large Joint Arthrocentesis Procedures Routine Primary osteoarthritis of left knee Ordered: 09/07/2025 documented as of this encounter Procedures Procedure Name Priority Date/Time Associated Diagnosis Comments XR KNEE 4+ VW LEFT Routine 09/07/2025 8: 52 AM EST Primary osteoarthritis of left knee documented in this encounter Results * XR Knee 4+ View Left (09/07/2025 8:52 AM EST) Anatomical Region Laterality Modality Lower Extremities, Knee Left Xray Narrative 09/07/2025 8:58 AM EST Left Knee Radiographs Indication: left knee pain Views: Standing AP's and skiers of both knees, with lateral and sunrise views of the left knee Comparison: 09/01/2024 Findings: Xcsd-bc-kumt contact medial compartment, tricompartmental osteophytes, varus alignment, no acute bony abnormalities. No unusual bony features. Advanced knee arthritis. Mild worsening compared to the previous imaging. us Carlin Ventura MD IMG DIAGNOSTIC IMAGING ORDERAB LES Final Result documented in this encounter Visit Diagnoses Diagnosis Primary osteoarthritis of left knee- Primary documented in this encounter Care Teams Clerical Stock Inspector Relationship Specialty Start Date End Date Mitra Vieyra APRN [address] [place] [address] PCP - General Nurse Practitioner 08/07/24 documented as of this encounter
--- OUTSIDE RECORDS SUMMARY | 2025-09-14 11:44 | XMS_ITS | Clinical Summary ---
Author Organization [facility] Address [address] [place] [address] Care Team Providers Care Coping Machine Operator Name Role Phone Jarrell Mitra THONG Primary Care Provider [phone] Allergies Active Allergy Reactions Criticality Noted Date [...] a Day. 180 tablet 3 06/17/2025 Active fluticasone (Flonase Allergy Relief) 50 MCG/ACT nasal spray Daily. Active Active Problems Problem Noted Date Diagnosed Date Generalized osteoarthrosis, involving multiple s ites 03/24/2024 Assessment & Plan (03/24/2024 10:09 AM EDT): Enjoys golf Chronic left knee pain, right 4th DIP pain/swelling onset October 2023 Son with psoriasis, but no psoriasis herself Right ankle initial gout flare July 2023 *Left knee meniscal [address] Cook 2019 *Orthopedics Dr. Ventura [...] meniscal repair with Dr Joyce garcia [facility] [address] Ventura replaced right hip Pain management Dr. Hylton/Dr Castellon. Left knee steroid injection 05/08/2024 Consent form reviewed and signed 05/08/2024 See procedure note Patient can have injection every 3 months as needed. She had prior left meniscal repair with Dr Joyce garcia [facility] 2019 I do not feel any synovitis or evidence of inflammatory arthritis involving the knee or other peripheral joints today. She reports prior steroid injections x2 with pain management in 2022 left knee helped for a few months. Recommend p.r.n. NSAID for knee pain Assessment & Plan (03/24/2024 10:09 AM EDT): Status post left meniscal repair with Dr Joyce garcia [facility] [address] Ventura replaced right hip Pain management Dr. Hylton/Dr Castellon. She has evidence of left knee osteoarthritis. Improved with as needed NSAID/intermittent steroid injection She had prior left meniscal repair with Dr Joyce garcia [facility] 2019 I do not feel any [...] Encounters Date Type Department Care Team Description 09/07/2025 8:40 AM EST Office Visit [facility] [address] [place] [address] [address] [place] [address] Carlin Ventura MD Primary osteoarthritis of left knee (Primary Dx) 09/07/2025 Travel 06/18/2025 Results Follow-Up [facility] [address] [address] Dontrell Vance MD 06/17/2025 2:45 PM EDT Office Visit [facility] R[facility] [address] [address] Dontrell Vance MD Generalized osteoarthrosis, involving multiple sites; Gout, unspecified cause, unspecified chronicity, unspecified site 06/17/2025 Telephone [facility] [address] [address] Dontrell Vance MD 06/17/2025 Travel from Last 3 Months Family History Medical History Relation Name Comments Arthritis Father Dementia Father Arthritis Mother Lisa Jesus Breast cancer Mother Lisa Jesus Cancer Mother Lisa Jesus Heart disease Mother Lisa Jesus Heart failure Mother Lisa Jeuss Osteoporosis Mother Lisa Jesus Parkinsonism Sister Relation [...] or training? Not on file Preferred Language Zambian 04/26/2023 Comments Unknown Sex and Gender Information Value Date Recorded Sex Assigned at Female 04/13/2025 7:53 AM EDT Legal Sex Female 12:42 PM EDT Gender Identity Not on file Sexual Orientation Straight 04/13/2025 7: 53 AM EDT Last Filed Vital Signs Vital Sign Reading Time Taken Comments Blood Pressure 134/80 09/07/2025 8:42 AM EST Pulse 69 06/17/2025 2:42 PM EDT Temperature 36.2 C (97.1 F) 06/17/2025 2:42 PM EDT Respiratory Rate 18 05/10/2023 11:23 AM EDT Oxygen Saturation 96% 05/10/2023 11:23 AM EDT Inhaled Oxygen Concentration - - Weight 79.8 kg (176 lb) 09/07/2025 8:42 AM EST Height 172.7 cm (5' 7.99 ) 09/07/2025 8:42 AM ES T Body Mass Index 26.77 09/07/2025 8:42 AM EST Plan of Treatment Upcoming Encounters Date Type Department Care Team (Late st Contact Info) Description 12/15/2025 10:00 AM EST Office Visit [facility] [address] [facility] [address] [place] [address] Dontrell Vance MD 330 [facility] [address] [place] [address] Health Maintenance Due Date Last Done Comments Annual Gynecologic Pelvic an d Breast Exam 1963 PAP SMEAR 1984 COLOGUARD 2008 COLON CANCER [...] 05/15/2025 08/09/2023, , 11/07/2021, Additional history exists TDAP/TD VACCINES (2 - Td or Tdap) 11/24/2025 016 Medical Devices Implanted Type Area Art Psychotherapist Device Identifier Shelf Expiration Date Model / Serial / Lot Dev Contrl Tiss Stratafix Spiral Mncryl Ud 3/0 Pls 60cm - [id number] Implanted:Qty : 1 on 05/10/2023 by Carlin Ventura MD at [facility] Implant Right: Hip [employer] J AND J [id number] / / Dev Contrl Tiss Stratafix Symm Pds Plus Bria Ct-1 45cm - [id number] Implanted:Qty : 1 on 05/10/2023 by Carlin Ventura MD at [facility] Implant Right: Hip [employer] DIV OF J AND J [id number] / / Shll Acet R3 3h Std 56mm - [id number] Implanted:Qty : 1 on 05/10/2023 by Carlin Ventura MD at [facility] Implant Right: Acetabulum [employer] [id number] 01/18/2033 [id number] / / [id number] Scrw Sph Hd Reflection 6.5x25mm - [id number] Implanted:Qty : 1 on 05/10/2023 by Carlin Ventura MD at [facility] Implant Right: Acetabulum [employer] [id number] 11/23/2032 [id number] / / [id number] Liner Acet R3 Xlpe 0d 97a65jr - [id number] Implanted:Qty : 1 on 05/10/2023 by Carlin Ventura MD at [facility] Implant Right: Acetabulum [employer] [id number] 01/24/2033 [id number] / / [id number] Stem Fem/Hip Polarstem W/Colr Std Sz4 - [id number] Implanted:Qty : 1 on 05/10/2023 by Carlin Ventura MD at [facility] Implant Right: Femur [employer] [id number] 01/25/2030 [id number] / / [id number] Hd Fem/Hip [id number] 09/27 36mm Lg Pls8 - [id number] Implanted:Qty : 1 on 05/10/2023 by Carlin Ventura MD at [facility] Implant Right: Femur [employer] [id number] 05/13/2028 [id number] / / [id number] Procedures Procedure Name Priority Date/Time Associated Diagnosis Comments XR KNEE 4+ VW LEFT Routine 09/07/2025 8: 52 AM EST Primary osteoarthritis of left knee CBC AND DIFFERENTIAL Routine 06/17/2025 3:13 PM EDT URIC ACID Routine 06/17/2025 3:13 PM EDT Generalized osteoarthrosis, involving multiple sites Gout, unspecified cause, unspecified chronicity, unspecified site COMPREHENSIVE METABOLIC PANEL Routine 06/17/2025 3:13 PM EDT Generalized osteoarthrosis, involving multiple sites Gout, unspecified cause, unspecified chronicity, unspecified site from Last 3 Months Results * XR Knee 4+ View Left (09/07/2025 8:52 AM EST) Anatomical Region Laterality Modality Lower Extremities, Knee Left Xray Narrative 09/07/2025 8:58 AM EST Left Knee Radiographs Indication: left knee pain Views: Standing AP's and skiers of both knees, with lateral and sunrise views of the left knee Comparison: 09/01/2024 Findings: Vkam-qm-milm contact medial compartment, tricompartmental osteophytes, varus alignment, no acute bony abnormalities. No unusual bony features. Advanced knee arthritis. Mild worsening compared to the previous imaging. us Carlin Ventura MD IMG DIAGNOSTIC IMAGING ORDERAB LES Final Result * (ABNORMAL) CBC & Differential (06/17/2025 3:13 [...] 06/17/2025 3:13 PM EDT 06/17/2025 Narrative [facility] ([facility]AT[facility]) - 06/18/2025 9:07 AM EDT Performed at: [address] [place] [id number] Director Of Athletics: Arturo Pastor PhD, Phone: [phone] Patient Fasting: N Dontrell Vance MD LAB BLOOD ORDERABLES Final Result [facility] (AMBULATORY) [address] [place] [address], [facility] [address] [place] [address], * Uric Acid (06/17/2025 3:13 PM EDT) Uric Acid 4.8 3.0 - 7.2 mg/dL [facility] Comment:Therapeutic target f or gout patients: <6.0 Blood 06/17/2025 3:13 PM EDT 06/17/2025 Narrative [facility] ([facility]) - 06/18/2025 9:07 AM EDT Performed at: [address] [place] [address], [place], [place] [id number] Director Of Athletics: Arturo Pastor PhD, Phone: [phone] Patient Fasting: N Dontrell Vance MD LAB BLOOD ORDERABLES Final Result [facility] ([facility]) [address] [place] [address], [facility] [address] [place] [address], * Comprehensive Metabolic Panel (06/17/2025 3:13 PM EDT) Pathologist [facility] Glucose 82 70 - 99 mg/dL [facility] [...] 06/18/2025 9:07 AM EDT Performed at: - [facility] [id number] Director Of Athletics: Arturo Pastor PhD, Phone: [phone] Patient Fasting: N Dontrell Vance MD LAB BLOOD ORDERABLES Final Result Performing Organization Address City/State/[facility] Co de Phone Number [facility] ([facility]ULATORY) [address] [place] [address], [facility] [address] [place] [address], from Last 3 Months Insurance [facility] PPO Advance Directives * CPR (Attempt to Resuscitate) (Latest Code Status on File) Date Activated Date Inactivated Comments 05/10/2023 11:19 AM 05/10/2023 6:25 PM Question Answer Comments Code Status (Patient has no pulse and is not breathing): CPR (Attempt to Resuscitate) Medical Interventions (Patie nt has pulse or is breathing): Full Support Release to patient: Routine Release Care Teams Coping Machine Operator Relationship Specialty Start Date End Date Mitra Vieyra, THONG [address] [place] [address] PCP - General Nurse Practitioner 08/07/24
--- OUTSIDE RECORDS SUMMARY | 2025-09-14 11:44 | XMS_ITS | Patient Health Record ---
[facility] Address [address] [facility] [address] [place] [id number] Care Team Providers Care Damage Inside Adjuster Name Role Phone Marvin Obregon Primary Care [...] Vaccine Route Administration Date Status Comme nts COVID 19 Pfizer Unknown 12/26/2020 Administered COVID 19 Pfizer Unknown 01/16/2021 Administered Fluzone Intradermal Quad private(18-64yrs) ID Intradermal 07/13/2016 Administered Fluzone Quad (6months&older) IM Intramuscular 08/21/2017 Administered Fluzone Quad (6months&older) IM Intramuscular 08/01/2018 Administered Given by MP Fluzone Quad (6months&older) IM Intramuscular 08/04/2019 Administered Fluzone Quad (6months&older) IM Intramuscular 06/18/2020 Administered Fluzone Quad (6months&older) IM Intramuscular 11/07/2021 Administered Fluzone Quad (6months&older) IM Intramuscular 08/29/2022 Administered Tetanus Tdap-Adacel (over 7yrs) IM Intramuscular 11/24/2015 Administered Problems Problem Type SNOMED Code ICD Code Onset Dates Problem Status W/U Status Risk Notes Problem Gastroesophageal reflux disease (643986117) GERD (gastroesophag eal reflux disease) (530.81) Active confirmed Problem Sinusitis (55571124) Sinusitis (J32.9) Active confirmed Problem Obstructive sleep apnea syndrome (disorder) (06510686) Obstructive sleep apnea (adult) (pediatric) (G47.33) Active confirmed Problem Hypothyroidism (99536713) Hypothyroidism , unspecified type (E03.9) Active confirmed Problem Arthritis of right hip (9069757038740518) Arthritis of right hip (M16.11) Active confirmed Plan Of Treatment No Information Insurance Providers Payer Name Payer Address Payer Phone Subscriber Number Group Number Insured Name Patient Relationship to Insured Coverage Start Date Coverage End Date [employer] [address] [place] [address] [id number] DOM MCELROY Self - patient is the insured Medical (General) History Medical History History ICD Code Esophageal reflux Hypothyroidism sleep apnea [employer] SUPERVISOR - Dr. Mccarthy Surgical History Surgery Date(Month/Year) tubal ligation Surgery on her R shoulder sugery on thumb L hand colonoscopy (normal) 03/2014 L Rotator cuff surgery 01/29/2015 L Knee Surgery - Scope 11/27/2019 Hospitalization History Reason Date(Month/Year) Pneumonia
--- OUTSIDE RECORDS SUMMARY | 2025-09-14 11:44 | XMS_ITS | Encounter Summary ---
Author Organization [facility] Address [address] [place] [address] Care Team Providers Care Life Insurance Actuary Name Role Phone Jarrell Mitra THONG Primary Care Provider [phone] Encounter Details Date Type Department Care Team (Late st Contact Info) Description 06/18/2025 Results Follow-Up [facility] MEDICAL [facility] RHEUMATOLOGY [address] [address] Dontrell Vance MD [address] [address] Social History Tobacco Use Types Packs/Day Years [...] or training? Not on file Preferred Language Mongolian 04/26/2023 Comments Unknown Sex and Gender Information Value Date Recorded Sex Assigned at Female 04/13/2025 7:53 AM EDT Legal Sex Female 12:42 PM EDT Gender Identity Not on file Sexual Orientation Straight 04/13/2025 7: 53 AM EDT documented as of this encounter Plan of Treatment Upcoming Encounters Date Type Department Care Team (Late st Contact Info) Description 12/15/2025 10:00 AM EST Office Visit [facility] RHEUMATOLOGY 330 [facility] [address] [place] [address] Dontrell Vance MD 330 [facility] [address] [place], [place] [id number] documented as of this encounter Visit Diagnoses Not on filedocumented in this encounter Care Teams Life Insurance Actuary Relationship Specialty Start Date End Date Mitra Vieyra APRN [address] [place] [address] PCP - General Nurse Practitioner 08/07/24 documented as of this encounter
--- OUTSIDE RECORDS SUMMARY | 2025-09-14 11:44 | XMS_ITS | Clinical Summary ---
Author Organization Healthcare Address [address] [place] [address] Care Team Providers Care Green Building Materials Designer Name Role Phone Marvin Obregon MD Primary Care Provider [phone] Family History Medical History Relation Name Comments [...] of Treatment Not on file Care Teams Green Building Materials Designer Relationship Specialty Start Date End Date Marvin bOregon MD [address] [place] [address] PCP - General 02/25/21
--- OUTSIDE RECORDS SUMMARY | 2025-09-14 11:44 | XMS_ITS | Clinical Summary ---
Author Organization [facility] Address [facility] [place] [address] Phone Care Team Providers Care Glost Kiln Operator Name Role Phone Marvin Obregon MD Primary Care Provider [phone] Social History Tobacco Use Types Packs/Day Years [...] age to complete this topic Care Teams Glost Kiln Operator Relationship Specialty Start Date End Date Marvin Obregon MD [address] [place] [address] PCP - General Family Medicine 07/15/13
--- OUTSIDE RECORDS SUMMARY | 2025-09-14 11:45 | XMS_ITS | Clinical Summary ---
Author Organization [facility] Address [address] [place] [address] Phone [email or web address] Care Team Providers Care Blender Helper Name Role Phone Unavailable Primary Care Provider [...]
--- OUTSIDE RECORDS SUMMARY | 2025-09-14 11:45 | XMS_ITS | Encounter Summary ---
[facility] Address [address] [place] [address] Care Team Providers Care Pattern Grader Name Role Phone Jarrell Mitra THONG Primary Care Provider [phone] Encounter Details Date Type Department Care Team (Latest Contact Info) Description 09/07/2025 Travel Social History Tobacco Use Types Packs/Day Years [...] or training? Not on file Preferred Language Cameroonian 04/26/2023 Comments Unknown Sex and Gender Information Value Date Recorded Sex Assigned at Female 04/13/2025 7:53 AM EDT Legal Sex Female 12:42 PM EDT Gender Identity Not on file Sexual Orientation Straight 04/13/2025 7: 53 AM EDT documented as of this encounter Plan of Treatment Upcoming Encounters Date Type Department Care Team (Late st Contact Info) Description 12/15/2025 10:00 AM EST Office Visit [facility] RHEUMATOLOGY [address] [address] Dontrell Vance MD [address] [address] documented as of this encounter Visit Diagnoses Not on filedocumented in this encounter Care Teams Pattern Grader Relationship Specialty Start Date End Date Mitra Vieyra APRN [address] [place] [address] PCP - General Nurse Practitioner 08/07/24 documented as of this encounter
--- OUTSIDE RECORDS SUMMARY | 2025-09-14 11:45 | XMS_ITS | Data Portability ---
Author Organization [facility] STEPHANIE Musa [facility] Address [address] [facility] [address] [place] [address] Care Team Providers Care Pulp Machine Operator Name Role Phone AMAURY MACEDO Primary Care Provider [phone] CATRINA STEINER Hand Alterations Tailor Assessment No assessment recorded. Plan of Treatment [...] By Organization Details Last Modified Time 02/11/2025 [id number] Recommended returning to clinic in 1 year for FBSE Not available 02/11/2025 11:32:19 Reason for Referral None Reported. Problems Name Problem SNOMED Code Status Onset Date Resolution Date Notes Provider Name and Address Organization Details Recorded Time History of atypical nevus 6367373302754 Active 2024 Tessa beltrán [facility] 11:35:50 History of malignant neoplasm of skin 770876913 Active 2024 Tessa Arnold [facility] 11:35:51 Problem Notes None recorded. Procedures Surgical History Date Name Laterality Status Provider Name and Address Organization Details Recorded Time 02/11/2025 DAK - [facility]o [facility] 02/11/2025 11:33:00 Imaging Results None recorded. Procedure [...] Tobacco Smoking Status Never Smoker Hali Adam [facility] 02/11/2025 11:19:53 Sunscreen Use? Yes Informatio n not available 02/11/2025 Tanning Bed Use No Informati on not available 02/11/2025 What Was The Date Of Your Most Recent Tobacco Screening? 02/11/2025 Information not available 02/11/2025 Sex: Unknown Functional Status None recorded. Mental Status None recorded. Family History Nothing Reported. Medical History Condition Response Other Skin Condition Basal Cell Carcinoma Y Gynecological HistoryNo gynecological history recorded. Obstetrics History GPAL:G 0 P 0 0 0 0 Past Encounters Encounter ID Performer Location Encounter Start Date Encounter Closed Date Diagnosis/Indication Diagnosis SNOMED-CT Code Diagnosis ICD10 Code Diagnosis IMO Codes Diagnosis Note [id number] CATRINA CHAPPELL MD [address] [address] 01/15/2024 09:03:30 01/28/2024 10:25:33 [id number] CATRINA CHAPPELL MD [address] [address] 02/01/2024 09:30:54 02/01/2024 10:27:49 History of atypical nevus 1719146537 101 Z86.018 Personal history of atypical moles suggests increased future melanoma risk. Monthly self-skin exams to monitor moles for change in shape, size or color are recommende d as well as regular full skin exams. Sun protection with broad spectrum SPF 30 sunscreen and broad-brim med hat is recommende d. 07/2013 - L lower thorax Multiple b enign melanocytic nevi 967402931 D22.5 Benign appearing nevi noted on exam. [...] types of skin cancers. Seborrheic keratosis 394 139660 L82.1 Seborrheic keratosis are benign but may be cosmetical ly bothersome . Cosmetic removal with liquid nitrogen is an option. This may leave discolorat ion, or the SK may persist or recur at the treatment site. 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 [...] types of skin cancers. Seborrheic keratosis 394 126876 L82.1 Seborrheic keratosis are benign but may be cosmetical ly bothersome . Cosmetic removal with liquid nitrogen is an option. This may leave discolorat ion, or the SK may persist or recur at the treatment site. Solar lentigo 75345022 L 81.4 - Benign brown spots - Sun-induce d Senile angioma 4289938 I 78.1 - Benign blood vessel growths - Hereditary History of malignant neoplasm of skin 791915285 Z85.828 - No evidence of recurrence today- Call with any worrisome lesions or if treated lesions return- Return at regular intervals for skin exam as recommende d Most recent, 10/2017 History of atypical nevus 2293465151 101 Z86.018 Personal history of atypical moles suggests increased future melanoma risk. Monthly self-skin exams to monitor moles for change in shape, size or color are recommende d as well as regular full skin exams. Sun protection with broad spectrum SPF 30 sunscreen and broad-brim med hat is recommende d. 07/2013 - L lower thorax Actinic keratosis 745760 007 L57.0 Actinic keratoses are precancero us [...] ID Guarantor Name 02/16/2025 1 [employer] [id number] R Fabi Diallo [id number] 02 Fabi Diallo Notes Date Note Type Note Provider Name and Address Organization Details Recorded Time 02/01/2024 text/html ROS as noted in the HPI skin checkhx of BCC - R upper armhx of AMN - L lower thorax CATRINA CHAPPELL MD [address] [place] [address] [place], [address], [facility] 02/04/2024 10:37:03 02/11/2025 text/html ROS as noted in the HPI Here for a full body skin examination - last skin check: 02/05- history of skin cancer - hx of BCC - R upper armhx of AMN - L lower thorax - spots of concern today: none today CATRINA CHAPPELL MD [address] [place] [address], [phone], [facility] 02/11/2025 12:37:45 OBGyn Episode No OBEpisode recorded.
== END 2025-09-11 23:59 ==
LOC: LAB.DROPOF 09-14 11:00
PROVIDERS: PCP Nurse Practitioner Family; Visit Provider Student in an Organized Health Care Education/Training Program
DX: R35.0 Frequency of micturition (principal)
CPT/HCPCS: 87086